=== PATIENT | female | born 1955 | race Caucasian/White ===

== ENCOUNTER 2017-07-11 11:33 | Inpatient (IN) | payer OTHER ==
[~2017-07-11] VITALS: Ht 165.1 cm; Wt 148.3 kg
[~2017-07-11 11:33] MED LIST: BENAZEPRIL-HCT1 EAC3 PO; COLACE100 M1 PO; ESCITALOPRAM OX20 MG PO; FEROSUL220 MG/5 M PO; FERROUS SU220 MG/51 PO; LACTULOSE20 GM/30 M PO; LIDOCAINE-PRILO30 GM TOP; LORAZEPAM0.5 M1 PO; MELATONIN3 M4 PO; MIRALAX17 G1 PO; NITRO-BID1 GM PR; NYSTOP60 GM EXT; OMEPRAZOLE40 M1 PO; PRILOSEC40 MG PO; PROPRANOLOL HCL10 M1 PO; RENVELA800 M1 PO; VITAMIN D250000 UNIT PO; XIFAXAN550 M1 PO
[2017-07-11 13:12] LABS: ABSOLUTE BASOPHIL COUNT 0 /CUMM (0.0-0.2); BASOPHIL % 0 % (0.0-2.0); MEAN PLATELET VOLUME 7.5 FL (7.4-10.4)
[2017-07-11 13:23] LABS: ABSOLUTE EOSINOPHIL COUNT 0.2 /CUMM (0.0-0.7); ABSOLUTE GRANULOCYTE CT 7.6 /CUMM (1.4-6.5); ABSOLUTE LYMPH COUNT 0.8 /CUMM (1.2-3.4); ABSOLUTE MONOCYTE COUNT 0.5 /CUMM (0.10-0.60); EOSINOPHIL % 2.6 % (0-5); GRANULOCYTE % 82.8 % (42.2-75.2); HEMATOCRIT 21.9 % (37-47); MEAN CORPUSCULAR HGB 29.9 PG (27.0-31.0); MEAN CORPUSCULAR HGB CONC 32.1 G/DL (33.0-37.0); PLATELET COUNT 201 /CUMM (130-400); RED BLOOD CELL CT 2.36 /CUMM (4.20-5.40); WHITE BLOOD CELL COUNT 9.2 /CUMM (4.8-10.8)
--- NOTE | 2017-07-11 14:02 | ED AMS/SEIZURE/WEAK/DIZZY ---
See Addendum History of Present Illness General Chief Complaint: General Adult Stated Complaint: GENERALIZED WEAKNESS, LETHARGY Source: patient, family, old records, EMS Exam Limitations: no limitations Vital Signs & Intake/Output Vital Signs & Intake/Output Vital Signs Date Time Temp Pulse Resp B/P B/P Pulse O2 O2 Flow FiO2 Mean Ox Delivery Rate 07/12 1251 97.6 49 18 97/49 95 Room Air / 1012 97.1 68 18 156/57 94 Room Air / 0815 95 Room Air / 0746 98.0 64 20 95/60 100 Room Air / 0616 97.7 53 20 93/50 95 Room Air / 0050 97.8 90 18 122/70 96 Room Air / 2221 98.0 62 20 109/60 98 Room Air 07/11 2007 98.1 51 18 99/54 98 Room Air / 1540 Room Air Room Air / 1537 97.5 75 18 96/51 97 Room Air ED Intake and Output 07/12 0000 07/11 1200 Intake Total 0 Output Total Balance 0 Intake, Oral 0 Patient 338 lb Weight Weight Reported by Patient Measurement Method Allergies Coded Allergies: Sulfa (Sulfonamide Antibiotics) (Intermediate, HIVES 02/25/17) latex (Intermediate, HIVES 02/25/17) Reconcile Medications Ergocalciferol (Vitamin D2) (Vitamin D2) 50,000 UNIT CAPSULE 1 CAP PO AD SUPPLEMENT (Reported) Escitalopram Oxalate 20 MG TABLET 1 TAB PO DAILY MENTAL HEALTH (Reported) Ferrous Sulfate 220 MG (44 MG IRON)/5 ML SOLUTION 300 ML PO TID ARIANNA . Lactulose 20 GRAM/30 ML SOLUTION 30 GM PO TID PRN constipation titrate for three bowel movements per day stop in case of diarrhea Lidocaine/Prilocaine (Lidocaine-Prilocaine Cream) 2.5 %-2.5 % CREAM..G. 1 WOODROW TOP 3-4XDAILY ANAL FISSURE (Reported) Melatonin 3 MG TABLET 3 MG PO AT BEDTIME insomnia Nitroglycerin (Nitro-Bid) 2 % OINT...G. 1 WOODROW WI 3-4XDAILY ANAL FISSURE ( Reported) Nystatin (Nystop) 100,000 UNIT/GRAM POWDER 1 POW EXT DAILY PRN Rash Omeprazole 40 MG CAPSULE.DR 1 CAP PO DAILY GI (Reported) Propranolol HCl 10 MG TABLET 1 HTAB PO BID Esophageal varices Avoid if heart rate is below 6 bpmin Rifaximin (Xifaxan) 550 MG TABLET 1 TAB PO BID ascitis Sevelamer Carbonate (Renvela) 800 MG TABLET 1 TAB PO WM Renal Triage Note: 61 YEAR OLD FEMALE REPORTS GENERALIZED WEAKNESS AND LETHARGY STARTING TUESDAY. PT STATES SHE WAS EVALUATED HERE ON TUESDAY AND DISCHARGED TO HOME. PT DENIES CP/SOB. REPORTS HISTORY OF DIABETES, KIDNEY DISEASE AND LIVER DISEASE. LOWER EXTREMETIES NOTED TO BE WRAPPED WITH GIAN WRAP. PT REPORTS SKIN IS INTACT BUT HAS WEEPING EDEMA TO BLE. Triage Nurses Notes Reviewed? yes Onset: several days Duration: day(s):, constant, continues in ED Timing: recent history Injury Environment: home Severity: severe Modifying Factors: Improves With: rest. Worsens With: movement. LMP (ages 10-50): post menopausal : No Patient currently breastfeeds: No HPI: 5 days prior to admission patient reports progressive weakness and unable to stand and pivot or walk with walker. She denies fever chills nausea vomiting diarrhea abdominal pain chest pain shortness breath headache dysuria rash bleeding. (Mart Meza MD) Past History Travel History Traveled to [place] past 21 day No Medical History Any Pertinent Medical History? 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 No (Mart Meza MD) Review of Systems Review of Systems Constitutional: Reports: see HPI, weakness. EENTM: Reports: no symptoms. Respiratory: Reports: no symptoms. Cardiovascular: Reports: no symptoms. GI: Reports: no symptoms. Genitourinary: Reports: no symptoms. Musculoskeletal: Reports: no symptoms. Skin: Reports: see HPI. Neurological/Psychological: Reports: see HPI, weakness. Hematologic/Endocrine: Reports: no symptoms. Immunologic/Allergic: Reports: no symptoms. All Other Systems: Reviewed and Negative (Mart Meza MD) Physical Exam Physical Exam General Appearance: well developed/nourished, alert, awake, moderate distress, obese Head: atraumatic, normal appearance Eyes: Bilateral: normal appearance, PERRL, EOMI. Ears, Nose, Throat: normal pharynx, normal ENT inspection Neck: normal inspection, supple, full range of motion, no midline tenderness Respiratory: normal breath sounds, chest non-tender, no respiratory distress, quiet respiration, lungs clear Cardiovascular: regular rate/rhythm, edema, normal peripheral pulses, norml femoral pulses equa Peripheral Pulses: 4+ carotid (R), 4+ carotid (L) Gastrointestinal: normal bowel sounds, soft, non-tender, no organomegaly Back: normal inspection Extremities: normal range of motion, pedal edema, no ligament instability Neurologic/Psych: awake, alert, oriented x 3, safety deposit supervisor II-XII nml as tested, motor weakness Reflexes: 2+: bicep (R), bicep (L). Skin: intact, normal color, warm/dry Lymphatic: no anterior cervical rishi Core Measures ACS in differential dx? No CVA/TIA Diagnosis No Sepsis Present: No Sepsis Focused Exam Completed? No (Mart Meza MD) Progress Differential Diagnosis: anemia, dehydration, drug intoxication, electrolyte imbalance, hypoxia, pneumonia Plan of Care: Orders Procedure Date/time Status Renal Dialysis Diet 07/12 B Active CASE MANAGEMENT CONSULT 07/12 0403 Active PT EVAL LOW COMPLEX 20 MIN 07/11 UNK Complete Current Medications Sig/Oleg Start time Last Medication Dose Stop Time Status Admin Melatonin 3 MG AT BEDTIME 07/12 2200 UNVr (Melatonin) Escitalopram Oxalate 20 MG DAILY 07/12 1000 UNVr 07/12 (Lexapro) 1019 Propranolol HCl 10 MG BID 07/12 1000 UNVr 07/12 (Inderal 10 MG 1019 Tablet.) Rifaximin 550 MG BID 07/12 1000 UNVr 07/12 (XIFAXAN) 1019 Omeprazole 40 MG DAILY AC 07/12 0700 UNVr (Prilosec) Acyclovir 1 WOODROW 5 TIMES A DAY 07/11 1857 AC 07/12 (Zovirax Oint) 0956 Non-Formulary 0 SEE ADMIN CRITERIA 07/11 1700 CAN Medication (NON FORMULARY) Iron Sucrose 200 MG ONE 07/11 0000 CAN (Venofer) 07/11 2359 Sodium Chloride 100 ML (Normal Saline 0.9%) Initial ED EKG: normal axis, normal intervals, normal p-waves, normal QRS complex, normal sinus rhythm, no ST T wave changes Prior EKG: unchanged Rhythm Strip: normal sinus rhythm Hand-Off Endorsed To: Narendra Chavez MD Endorsed Time: 190 Pending: other (Rehab placement) Comments: D/W renal: IV iron, epo now then f/u for IV iron as scheduled. Epo 10,000 units Qweek at rehab. (Mart Meza MD) Hand-Off Endorsed To: Phil Gutierrez MD Endorsed Time: 07 Pending: other (Narendra Chavez MD) Comments: BED SEARCH IS UNDERWAY. (Phil Gutierrez MD) Departure Departure Condition: Stable Clinical Impression Primary Impression: Weakness generalized Referrals: Lana Knight DO (PCP/Family) Departure Forms: Customer Survey General Discharge Information (Mart Meza MD) Departure Disposition: ACUTE REHAB FACILITY (Phil Gutierrez MD) Condition: Stable Clinical Impression Primary Impression: Weakness generalized Referrals: Lana Knight DO (PCP/Family) Departure Forms: Customer Survey General Discharge Information (Mart Meza MD) Departure Disposition: ACUTE REHAB FACILITY (Phil Gutierrez MD) Comments: BED SEARCH IS UNDERWAY. (Phil Gutierrez MD) Departure Departure Disposition: STILL A PATIENT Condition: Stable Clinical Impression Primary Impression: Weakness generalized Referrals: Lana Knight DO (PCP/Family) Departure Forms: Customer Survey General Discharge Information (Mart Meza MD)
--- NOTE | 2017-07-12 16:57 | History & Physical ---
Oniel GAMBINO,Phil 07/12/17 9520: General Information and HPI MD Statement: I have seen and personally examined ROHAN OVALLES and documented this H&P. The patient is a 61 year old F who presented with a patient stated chief complaint of [fatigue, weakness]. Source of Information: patient, family Exam Limitations: no limitations History of Present Illness: Patient is a 61-year-old female with a PMH significant for hepatorenal syndrome for which she was admitted to several months ago, postmenopausal bleeding, anemia, HTN, anxiety, depresison, fatty liver disease, questionable hypothyroid, hemmorrhoids, alcohol abuse (although has discontinued use since her last admission in March 2017), who presents to complaining of weakness, fatigue and chills. Since her discharge from in March she has been following with Dr. Mccallum and Dr. Saavedra. One week prior to admission she was given an IV iron and EPO infusion as an outpatient and since then has experienced fatigue, lethargy, and weakness. These sympoms did not resolve and 2 days prior to presentation she noted chills and presented to the ED. While in the ED her bloodwork was checked and she was discharged. Her symptoms did not improve and when her home nurse came to her house she called EMS due to the patient's weakness. She has had monthy vaginal bleeding for an extended period, which has been worked up by reel man, and has just finished one of these week long cycles of bleeding. She also endorsed diarrhea after receiving her iron and EPO injection last week. She denies any fever, SOB, chest pain, bloody stool, melena, dysuria , hematuria. Allergies/Medications Allergies: Coded Allergies: Sulfa (Sulfonamide Antibiotics) (Intermediate, HIVES 02/25/17) latex (Intermediate, HIVES 02/25/17) Home Med list Escitalopram Oxalate 10 MG TABLET 1 TAB PO DAILY DEPRESSION (Reported) Furosemide 20 MG TABLET 1 TAB PO BID WATER RETENTION (Reported) Lactulose 10 GRAM/15 ML SOLUTION 30 ML PO BID CONSTIPATION (Reported) Propranolol HCl 10 MG TABLET 1 HTAB PO BID Esophageal varices Avoid if heart rate is below 6 bpmin Rifaximin (Xifaxan) 550 MG TABLET 1 TAB PO BID ascitis Spironolactone 50 MG TABLET 1 TAB PO DAILY WATER RETENTION (Reported) Past History Travel History Traveled to [place] past 21 day No Medical History Neurological: NONE EENT: POST NASAL DRIP Cardiovascular: hypertension, L ATRIUM ENLARGED Respiratory: bronchitis, pneumonia Gastrointestinal: irritable bowel syndrome, ANAL FISSURE Hepatic: FATTY LIVER Renal: PHYLLIS Musculoskeletal: NONE Psychiatric: anxiety, depression Endocrine: obesity Blood Disorders: anemia Cancer(s): NONE 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 Home Who Do You Live With? spouse Services at Home: Nursing Primary Language: Russian Smoking Status: Never Smoked ETOH Use: previous heavy use quit < 30 days ago Illicit Drug Use: denies illicit drug use Functional Ability ADLs Independent: dressing, eating, toileting, bathing. Ambulation: independent IADLs Independent: shopping, housework, finances, food prep, telephone, transportation , medication admin. Review of Systems Review of Systems Constitutional: Reports: chills, weakness. Denies: diaphoresis, fever. EENTM: Reports: no symptoms. Cardiovascular: Denies: chest pain, palpitations. Respiratory: Reports: no symptoms. GI: Reports: no symptoms. Genitourinary: Reports: see HPI. Musculoskeletal: Reports: no symptoms. Skin: Reports: no symptoms. Neurological/Psychological: Reports: no symptoms. Post Menopausal: Yes Exam & Diagnostic Data Last 24 Hrs of Vital Signs/I&O Vital Signs Date Time Temp Pulse Resp B/P B/P Pulse O2 O2 Flow FiO2 Mean Ox Delivery Rate 07/12 1835 97.2 50 18 103/54 98 Room Air 03/ 1800 96 Room Air / 1531 97.8 48 18 104/54 96 Room Air 03/ 1251 97.6 49 18 97/49 95 Room Air 03/ 1012 97.1 68 18 156/57 94 Room Air 03/06 0815 95 Room Air 03/06 0746 98.0 64 20 95/60 100 Room Air 03/06 0616 97.7 53 20 93/50 95 Room Air 03/06 0050 97.8 90 18 122/70 96 Room Air 03/05 2221 98.0 62 20 109/60 98 Room Air 07/11 2006 98.1 51 18 99/54 98 Room Air Intake & Output 07/12 1600 07/12 0800 07/12 0000 Intake Total 100 240 Output Total 600 Balance 100 -360 Intake, Oral 100 240 Output, Urine 600 Physical Exam General Appearance Oriented X3, Cooperative, No Acute Distress, lethargic Skin Temp/Moisture Exam: Warm/Dry Cardiovascular Regular Rate, Normal S1, Normal S2 Lungs Clear to Auscultation, Normal Air Movement Abdomen Soft, No Tenderness, No Hepatospenomegaly, obese Neurological Normal Speech, Normal Tone, Sensation Intact, Cranial Nerves 3-12 NL Extremities 3+ pitting edema of the distal LEs bilaterally with weaping from some areas, which are currently wrapped in GIAN Last 24 Hrs of Labs/Srini: Laboratory Tests 07/12/171817: Anion Gap 10, Estimated GFR 16 L, BUN/Creatinine Ratio 24.3, Calcium Pending, Phosphorus Pending, Magnesium Pending, TSH Pending, CBC w Diff MAN DIFF ORDERED, RBC 2.49 L, MCV 91.8, MCH 29.8, MCHC 32.4 L, RDW 23.8 H, MPV 8.1, Gran % 81.2 H, Lymphocytes % 10.1 L, Monocytes % 5.4, Eosinophils % 3.2, Basophils % 0.1, Absolute Granulocytes 7.0 H, Segmented Neutrophils 79 H, Band Neutrophils 2, Absolute Lymphocytes 0.9 L, Lymphocytes 8 L, Monocytes 7, Absolute Monocytes 0.5, Eosinophils 4, Absolute Eosinophils 0.3, Absolute Basophils 0, Platelet Estimate ADEQUATE, Polychromasia 1+, Hypochromic-Microcytic 2+, Poikilocytosis 1 +, [place] Cells 1+, Fld Total RBCs Counted 100 Diagnostic Data EKG Results sinus bradycardia HR 50, QRS 112, QTc 442 Other Results Renal US L kidney normal, R kidney and bladder not seen Assessment/Plan Assessment: Patient is a 61-year-old female with a PMH significant for hepatorenal syndrome for which she was admitted to several months ago, postmenopausal bleeding, anemia, HTN, anxiety, depresison, fatty liver disease, questionable hypothyroid, hemmorrhoids, who presents to complaining of weakness, fatigue and chills. She was found to be anemic but not profoundly below her baseline in the ED, and she has hyponatremia and hyperkalemia. Renal US showed a normal L kidney but the R kidney and bladder were not visualized. Problem list #PHYLLIS possible due to hepatorenal syndrome #Normocitic Anemia, acute on chornic #Hyperkalemia #Hyponatremia Plan -admit to the general medicine floor - Consults placed with Nephrology and GI - kayexalate 60 mg x 1 and recheck BEP in AM - repeat EKG - Monitor CBC, patient received IV iron and EPO infusions while in ED - Hold Lasix and spironolactone given PHYLLIS - hold antihypertensives given boarderline BP and bradycardia - Gentle IV fluid rehydraion - Continue home medications including Lorazepam, Escitalopram, Rifaximin Diet: heart healthy, K+ restriction DVT ppx: ALPS, hold pharmacologic given anemia with vaginal bleeding Code status: Full Code As Ranked By This Provider Problem List: 1. Chronic anemia 2. Weakness 3. Chronic kidney disease 4. Hyponatremia 5. Hyperkalemia Core Measures/Misc (01/23) Acute Coronary Syndrome ACS Diagnosis: No Congestive Heart Failure Congestive Heart Failure Diagnosis No Cerebrovascular Accident CVA/TIA Diagnosis: No VTE (View Protocol) VTE Risk Factors No risk factors No Mechanical VTE Prophylaxis d/t N/A MechProphylax Ordered No VTE Pharm Prophylaxis d/t Bleeding (Active) Sepsis (View protocol) Sepsis Present: No Jaclyn Walter MD 07/12/17 1831: Resident Review Statement Resident Statement: examined this patient, discussed with international guest coordinator, agreed with international guest coordinator, discussed with family, reviewed images, amended to note Other Findings: Patient is a 61 year old female with a PMH significant for heavy alcohol use (1 bottle of wine per day), LIAO/cirrhosis, HTN, anxiety, depression, chronic anemia, hypothyroidism, hemorrhoids, and rectal fissures who presented to [facility] ED complaining of fatigue x 1 week after her 1st iron infusion and 2 days ago she reports beginning to feel cold with associated dry heaving. Her is at bedside and contributes to the hx. She came into the ER 2 days ago and had blood work done which showed her H&H was low but did not require transfusion and her creatinine was only sightly elevated fron baseline and she was discharged. She however came back yesterday due to persistent weakness and denies fevers, vomiting, syncope, chest pain or shortness of breath. She has 3+ pitting pedal edema with small weeping ulcers bilaterally. She was recently started on iron infusions [address] Mccallum and has had 2 doses since. Last tuesday was her most recent infusion. Infusions are scheduled for twice a week, and she also has EPO once a week. She had reports diarrhea after receiving the infusions. Patient has a hx of post-menopausal vaginal bleeding for some months now. She was seen by Dr. Arreola (OBGYN) and transvaginal ultrasound scans showed that her endometrium was 6mm and was told that 10mm is worisome, biopsy could not be done at the time due to positioning of her uterus . Bleeding is moderate to heavy with clots, lasts 7-8 days and according almost every month. She has been on xifaxan for sometime but recently had to switch to lactulose because of insurance issues. She disconitued ETOH since her diagnosis with cirrhosis last year. Renal ultrasound shows a normal left kidney, right kidney and bladder could not be visualized Assessment 1. PHYLLIS on CKD r/o Hepatorenal syndrome type 2 2. Hyperkalemia 3. Hyponatremia 4. Bradycardia 5. Chronic Anemia 6. Post Menopausal Bleeding 7. Hx of LIAO/cirrhosis 8. Hx of ETOH abuse and depression Plan Admit to general medicine floor Give a dose of kayexalate x 1; recheck potassium in a.m. Repeat EKG Hold furosemide and spironolactone for now due to PHYLLIS Daily labs, urine lytes Hold off on blood transfusions for now; patient has recently recieved iron infusions and Epopoietin. Will monitor CBC and defer to nephrology Nephrology consult-follow recommendations GI consult-will follow recs Consider OBGYN eval-pt will likely need a biospy to r/o malignancy and possible workup for ZURI when more stable CIWA scoring Wound care Repeat TSH, T4-hx of elvated TSH could be due to chronic illness Resume patient's important home medications including propranolol Follow attending recommendations Pain control with tylenol DVT ppx-ALPS Renal dialysis diet FC Andrés Jay MD 07/12/172051: Attending MD Review Statement Attending Statement Attending MD Statement: examined this patient, discuss w/resident/PA/HOME WEATHERIZING WORKER, agreed w/resident/PA/HOME WEATHERIZING WORKER, reviewed EMR data (avail) Attending Assessment/Plan: Agree with resident plan. Will admit for likely hepatorenal syndrome, follow nephrology recommendations as well as GI, hold Lasix for now, renal ultrasound, urine electrolyte, continue home meds, DVT PPx
--- NOTE | 2017-07-12 18:20 | ULTRASOUND REPORT ---
EXAMINATION: US RETROPERITONEAL COMPLETE (RENAL) CLINICAL INFORMATION: PHYLLIS. COMPARISON: Ultrasound of abdomen 05/25/2017 TECHNIQUE: Real-time imaging of the kidneys and bladder. Exam was performed portable. Patient was unable to decubitus. The exam is limited by body habitus and bowel gas. FINDINGS: RIGHT KIDNEY: Not clearly visualized. LEFT KIDNEY: 12 x 5.4 x 5.2 cm (SAG x AP x TRV). The kidney is normal in size, contour, and echogenicity. Renal cortical thickness is normal. No calculi or focal parenchymal lesions. No hydronephrosis. BLADDER: Unable to visualize. IMPRESSION: 1. Limited study. Unable to visualize the right kidney or the bladder. 2. Normal ultrasound of the left kidney..
[2017-07-12 18:44] LABS: ABSOLUTE BASOPHIL COUNT 0 /CUMM (0.0-0.2); ABSOLUTE EOSINOPHIL COUNT 0.3 /CUMM (0.0-0.7); ABSOLUTE LYMPH COUNT 0.9 /CUMM (1.2-3.4); ABSOLUTE MONOCYTE COUNT 0.5 /CUMM (0.10-0.60); BASOPHIL % 0.1 % (0.0-2.0); EOSINOPHIL % 3.2 % (0-5); GRANULOCYTE % 81.2 % (42.2-75.2); HEMATOCRIT 22.8 % (37-47); MEAN CORPUSCULAR HGB 29.8 PG (27.0-31.0); MEAN CORPUSCULAR HGB CONC 32.4 G/DL (33.0-37.0); MEAN CORPUSCULAR VOLUME 91.8 FL (81.0-99.0); MEAN PLATELET VOLUME 8.1 FL (7.4-10.4); PLATELET COUNT 201 /CUMM (130-400); RBC DISTRIBUTION WIDTH 23.8 % (11.5-14.5); RED BLOOD CELL CT 2.49 /CUMM (4.20-5.40); WHITE BLOOD CELL COUNT 8.7 /CUMM (4.8-10.8)
[2017-07-12] MEDS ORDERED: SPIRONOLACTONE50 M1 PO (19:29)
[2017-07-12] MEDS ORDERED: ESCITALOPRAM OX10 MG PO (19:29)
[2017-07-12] MEDS ORDERED: FUROSEMIDE20 M1 PO (19:29)
[2017-07-12] MEDS ORDERED: LACTULOSE10 GM/153 PO (19:30)
[2017-07-13 06:46] VITALS: BP 107/60
--- NOTE | 2017-07-13 07:24 | PN- Housestaff ---
Oniel GAMBINO,Phil 07/13/17 0723: Subjective Follow-up For: Acute on chronic anemia PHYLLIS on CKD, possibly hepatorenal syndrome Subjective: Patient was seen and examined at bedside. She is resting comfortably. She had no acute events overnight. She feels better overall than she did yesterday in the ER. She has been able to transition from bed to chair without issue. She continues to complain of fatigue but this has improved. She has no other complaints at this time. She denies any abdominal pain, nausea, vomiting, fever , chills, chest pain, shortness of breath. Review of Systems Constitutional: Denies: chills, fever, malaise. Cardiovascular: Denies: chest pain, palpitations. Respiratory: Denies: cough, short of breath. Gastrointestinal: Reports: no symptoms. Genitourinary: Reports: no symptoms. Musculoskeletal: Reports: no symptoms. Objective Last 24 Hrs of Vital Signs/I&O Vital Signs Date Time Temp Pulse Resp B/P B/P Pulse O2 O2 Flow FiO2 Mean Ox Delivery Rate 07/13 0646 97.8 57 16 107/60 95 Room Air 03/ 2047 97.5 50 18 100 Room Air 03/ 1835 97.2 50 18 103/54 98 Room Air 03/06 1800 96 Room Air 03/ 1531 97.8 48 18 104/54 96 Room Air 03/ 1251 97.6 49 18 97/49 95 Room Air 03/06 1012 97.1 68 18 156/57 94 Room Air 03/ 0815 95 Room Air 03/06 0746 98.0 64 20 95/60 100 Room Air Intake & Output 07/13 0800 07/13 0000 07/12 1600 Intake Total 225 100 Output Total 100 Balance 125 100 Intake, IV 225 Intake, Oral 100 Output, Urine 100 Patient 325 lb Weight Weight Bed scale Measurement Method Physical Exam General Appearance: Alert, Oriented X3, Cooperative, No Acute Distress Skin Temp/Moisture Exam: Warm/Dry Sepsis Skin Exam (color): Normal for Ethnicity Cardiovascular: Regular Rate, Normal S1, Normal S2 Lungs: diminshed breath sounds Abdomen: Normal Bowel Sounds, Soft, No Tenderness Neurological: Normal Tone, Sensation Intact Extremities: 3+ pitting edema of the distal BLE with areas of weeping Current Medications: Current Medications Sig/Oleg Start time Last Medication Dose Route Stop Time Status Admin Acetaminophen 650 MG Q6P PRN 07/12 1730 AC PO Acyclovir 1 WOODROW 5 TIMES A DAY 07/11 1857 AC 07/13 TOP 0632 Escitalopram Oxalate 20 MG DAILY 07/12 1000 AC 07/12 PO 1019 Lorazepam 0.5 MG AT BEDTIME 07/12 2199 AC 07/12 PO 07/19 2158 210 Melatonin 3 MG AT BEDTIME 07/12 220 AC 07/12 PO 2105 Omeprazole 40 MG DAILY AC 07/12 0700 AC 07/13 PO 0632 Propranolol HCl 10 MG BID 07/12 2200 CAN PO Propranolol HCl 10 MG BID 07/12 1000 DC 07/12 PO 1019 Rifaximin 550 MG BID 07/12 2199 AC 07/12 PO 2105 Rifaximin 550 MG BID 07/12 1000 DC 07/12 PO 1019 Sodium Chloride 1,000 ML Q13H 07/12 181 DC 07/12 IV 07/13 Sodium Polystyrene 60 ML ONCE ONE 07/12 1914 DC 07/12 Sulfonate PO 07/12 Last 24 Hrs of Lab/Srini Results Last 24 Hrs of Labs/Mics: Laboratory Tests 07/13/17 0608: Sodium Pending, Potassium Pending, Chloride Pending, Carbon Dioxide Pending, Anion Gap Pending, BUN Pending, Creatinine Pending, BUN/Creatinine Ratio Pending , Phosphorus Pending, Magnesium Pending, CBC w Diff Pending, WBC Pending, RBC Pending, Hgb Pending, Hct Pending, MCV Pending, MCH Pending, MCHC Pending, RDW Pending, Plt Count Pending, MPV Pending 07/12/178: Anion Gap 10, Estimated GFR 16 L, BUN/Creatinine Ratio 24.3, Calcium 9.3, Phosphorus 4.2, Magnesium 2.7 H, TSH 6.470 H, Thyroxine (T4) 5.0, CBC w Diff MAN DIFF ORDERED, RBC 2.49 L, MCV 91.8, MCH 29.8, MCHC 32.4 L, RDW 23.8 H, MPV 8.1, Gran % 81.2 H, Lymphocytes % 10.1 L, Monocytes % 5.4, Eosinophils % 3.2, Basophils % 0.1, Absolute Granulocytes 7.0 H, Segmented Neutrophils 79 H, Band Neutrophils 2, Absolute Lymphocytes 0.9 L, Lymphocytes 8 L, Monocytes 7, Absolute Monocytes 0.5, Eosinophils 4, Absolute Eosinophils 0.3, Absolute Basophils 0, Platelet Estimate ADEQUATE, Polychromasia 1+, Hypochromic- Microcytic 2+, Poikilocytosis 1+, Spindale Cells 1+, Fld Total RBCs Counted 100 Assessment/Plan Assessment: Patient is a 61-year-old female with a PMH significant for hepatorenal syndrome for which she was admitted to several months ago, postmenopausal bleeding, anemia, HTN, anxiety, depresison, fatty liver disease, questionable hypothyroid, hemmorrhoids, who presents to complaining of weakness, fatigue and chills. She was found to be anemic but not profoundly below her baseline in the ED, and she has hyponatremia and hyperkalemia. Renal US showed a normal L kidney but the R kidney and bladder were not visualized. #PHYLLIS on CKD This could possibly, possible due to hepatorenal syndrome - Continue IV albumin 25% q 8 Hrs -We'll pursue abdominal ultrasound to evaluate for ascites -Follow-up BEP and C3,C4 in AM - Continue to hold diuretics and avoid nephrotoxic medications -Follow-up INR for MELD scoring -GI and nephro recommendations appreciated #Normocitic Anemia, acute on chornic Patient has a history of postmenopausal vaginal bleeding, she has followed with Dr. Muniz as an outpatient -Epogen 1200 units weekly, last dose on 07/11/16 -Continue every other day dosing of IV venofer to goal dose of 1 g (received 200 mg today, total dose 400 mg) -Continue to monitor BEP #Hyperkalemia, resolved -Continue to monitor BEP #Hyponatremia, improving -Continue to monitor BEP Diet: heart healthy, K+ restriction DVT ppx: ALPS, hold pharmacologic given anemia with vaginal bleeding Code status: Full Code Problem List: 1. Chronic anemia 2. Acute kidney injury superimposed on chronic kidney disease Pain Ratin Pain Location: none Pain Goal: Remain pain free Pain Plan: pain pathway Tomorrow's Labs & Rationales: cbc, bep, C3, C4 Marlon Hendrix MD 07/13/17 1741: Attending Review Statement Attending Statement Attending Statement: examined this patient, discuss w/resident/PA/FINANCIAL ASSISTANT, agreed w/resident/PA/FINANCIAL ASSISTANT, reviewed EMR data (avail), discussed with case mgmt, amended to note Attending Assessment/Plan: The patient was seen and discussed with house staff. Appreciate Nephrology and GI consults. Will follow renal function. IV albumin. Follow H/H. May need transfusion.
--- NOTE | 2017-07-13 07:40 | Cons- Gastroenterology ---
General Information and HPI Consulting Request Date of Consult: 07/13/17 Requested By: Andrés Jay MD Reason for Consult: Renal insufficiency in a pt with LIAO/cirrhosis. Source of Information: patient, old records Exam Limitations: no limitations History of Present Illness: Ms. Scales is a 61 year old female with a history of ARIANNA secondary to post menopausal bleeding for which she receives IV iron and epo, and LIAO/cirrhosis who presented to yesterday with reports of increasing fatigue associated with fevers and chills. She was admitted to in March for anemia at which point she underwent an endoscopic work up which revealed grade I varices and portal hypertensive gastropathy for which she has been started on a non-selective beta miguel. She also takes xifaxan and diuretics for lower extremity swellling, but she notes that they weren't able to fill the xifaxan recently secondary to cost and she was subsequently started on lactulose. She has been having some vaginal bleeding which she notes she gets intermittently and she also notes some loose stool, but she has not noted any blood in her stool, or melena. She is also without overt abdominal pain, significant abdominal distention, lower extremity swelling or vomiting. In the ER she was found to be anemic, but not far from her baseline and she was also noted to have worsening renal insufficiency with hyperkalemia. She got kaexelate, IV iron and epo in the ED and was subsequenty admitted. Her diuretics were held on admission and she has remained hemodynamically stable and afebrile. Allergies/Medications Allergies: Coded Allergies: Sulfa (Sulfonamide Antibiotics) (Intermediate, HIVES 02/25/17) latex (Intermediate, HIVES 02/25/17) Home Med List: Escitalopram Oxalate 10 MG TABLET 1 TAB PO DAILY DEPRESSION (Reported) Furosemide 20 MG TABLET 1 TAB PO BID WATER RETENTION (Reported) Lactulose 10 GRAM/15 ML SOLUTION 30 ML PO BID CONSTIPATION (Reported) Propranolol HCl 10 MG TABLET 1 HTAB PO BID Esophageal varices Avoid if heart rate is below 6 bpmin Rifaximin (Xifaxan) 550 MG TABLET 1 TAB PO BID ascitis Spironolactone 50 MG TABLET 1 TAB PO DAILY WATER RETENTION (Reported) Current Medications: Current Medications Sig/Oleg Start time Last Medication Dose Route Stop Time Status Admin Acetaminophen 650 MG Q6P PRN 03/06 1730 AC PO Acyclovir 1 WOODROW 5 TIMES A DAY 07/11 1857 AC 07/13 TOP 0632 Escitalopram Oxalate 20 MG DAILY 07/12 1000 AC 07/12 PO 1019 Lorazepam 0.5 MG AT BEDTIME 07/12 2199 AC 07/12 PO 07/19 2158 210 Melatonin 3 MG AT BEDTIME 07/12 220 AC 07/12 PO 2105 Omeprazole 40 MG DAILY AC 07/12 0700 AC 07/13 PO 0632 Propranolol HCl 10 MG BID 07/12 2200 CAN PO Propranolol HCl 10 MG BID 07/12 1000 DC 07/12 PO 1019 Rifaximin 550 MG BID 07/12 220 AC 07/12 PO 2105 Rifaximin 550 MG BID 07/12 1000 DC 07/12 PO 1019 Sodium Chloride 1,000 ML Q13H 07/12 1815 DC 07/12 IV 07/13 Sodium Polystyrene 60 ML ONCE ONE 07/12 1914 DC 07/12 Sulfonate PO 07/12 Past History Travel History Traveled to [place] past 21 day No Medical History Neurological: NONE EENT: POST NASAL DRIP Cardiovascular: hypertension, L ATRIUM ENLARGED Respiratory: bronchitis, pneumonia Gastrointestinal: irritable bowel syndrome, ANAL FISSURE Hepatic: FATTY LIVER Renal: PHYLLIS Musculoskeletal: NONE Psychiatric: anxiety, depression Endocrine: obesity Blood Disorders: anemia Cancer(s): NONE 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 Home Who Do You Live With? spouse Services at Home: Nursing Primary Language: Turkish Smoking Status: Never Smoked ETOH Use: previous heavy use quit < 30 days ago Illicit Drug Use: denies illicit drug use Functional Ability ADLs Independent: dressing, eating, toileting, bathing. Ambulation: independent IADLs Independent: shopping, housework, finances, food prep, telephone, transportation , medication admin. Review of Systems Review of Systems Constitutional: Reports: chills, malaise, weakness. Denies: diaphoresis, fever. EENTM: Denies: no symptoms. Cardiovascular: Reports: edema, peripheral edema. Denies: orthopena, palpitations, syncope. Respiratory: Reports: short of breath. Denies: cough, hemoptysis, orthopnea. GI: Denies: see HPI. Genitourinary: Denies: no symptoms. Musculoskeletal: Reports: muscle pain, muscle stiffness. Denies: joint pain, joint swelling. Skin: Denies: no symptoms. Neurological/Psychological: Denies: no symptoms. Hematologic/Endocrine: Denies: no symptoms. Immunologic/Allergic: Denies: no symptoms. All Other Systems: Reviewed and Negative Exam & Diagnostic Data Vital Signs and I&O Vital Signs Date Time Temp Pulse Resp B/P B/P Pulse O2 O2 Flow FiO2 Mean Ox Delivery Rate 07/13 0646 97.8 57 16 107/60 95 Room Air / 2047 97.5 50 18 100 Room Air / 1835 97.2 50 18 103/54 98 Room Air / 1800 96 Room Air / 1531 97.8 48 18 104/54 96 Room Air / 1251 97.6 49 18 97/49 95 Room Air / 1012 97.1 68 18 156/57 94 Room Air / 0815 95 Room Air /06 0746 98.0 64 20 95/60 100 Room Air Intake & Output 07/13 1600 /07 0400 /06 1600 /06 0400 /05 1600 03/05 0400 Intake Total 225 100 240 0 Output Total 100 600 Balance 125 100 -360 0 Intake, IV 225 Intake, Oral 100 240 0 Output, Urine 100 600 Patient 325 lb 338 lb Weight Weight Bed scale Reported by Patient Measurement Method Physical Exam General Appearance: well developed/nourished, no apparent distress, alert, awake , comfortable, obese Head: atraumatic, normal appearance Eyes: Bilateral: other (scleral icterus). Ears, Nose, Throat: normal pharynx, normal ENT inspection, hearing grossly normal Neck: normal inspection, supple, full range of motion Respiratory: normal breath sounds, chest non-tender, no respiratory distress Cardiovascular: regular rate/rhythm Gastrointestinal: normal bowel sounds, soft, non-tender, no organomegaly Rectal: deferred Back: normal inspection Extremities: pedal edema Neurologic/Psych: no motor/sensory deficits, awake, alert, oriented x 3 Skin: intact Results Pertinent Lab Results: Laboratory Tests 07/13 07/12 0608 1818 Chemistry Sodium (137 - 145 mmol/L) Pending 130 L Potassium (3.5 - 5.1 mmol/L) Pending 5.9 H Chloride (98 - 107 mmol/L) Pending 100 Carbon Dioxide (22 - 30 mmol/L) Pending 20 L Anion Gap (5 - 16) Pending 10 BUN (7 - 17 mg/dL) Pending 73 H Creatinine (0.5 - 1.0 mg/dL) Pending 3.0 H Estimated GFR (>60 ml/min) 16 L BUN/Creatinine Ratio (7 - 25 %) Pending 24.3 Calcium (8.4 - 10.2 mg/dL) 9.3 Phosphorus (2.5 - 4.5 mg/dL) Pending 4.2 Magnesium (1.6 - 2.3 mg/dL) Pending 2.7 H TSH (0.270 - 4.200 uIU/mL) 6.470 H Thyroxine (T4) (4.5 - 10.9 ug/dL) 5.0 Hematology CBC w Diff Pending MAN DIFF ORDERED WBC (4.8 - 10.8 /CUMM) Pending 8.7 RBC (4.20 - 5.40 /CUMM) Pending 2.49 L Hgb (12.0 - 16.0 G/DL) Pending 7.4 *L Hct (37 - 47 %) Pending 22.8 L MCV (81.0 - 99.0 FL) Pending 91.8 MCH (27.0 - 31.0 PG) Pending 29.8 MCHC (33.0 - 37.0 G/DL) Pending 32.4 L RDW (11.5 - 14.5 %) Pending 23.8 H Plt Count (130 - 400 /CUMM) Pending 201 MPV (7.4 - 10.4 FL) Pending 8.1 Gran % (42.2 - 75.2 %) 81.2 H Lymphocytes % (20.5 - 51.1 %) 10.1 L Monocytes % (1.7 - 9.3 %) 5.4 Eosinophils % (0 - 5 %) 3.2 Basophils % (0.0 - 2.0 %) 0.1 Absolute Granulocytes (1.4 - 6.5 /CUMM) 7.0 H Segmented Neutrophils (42.2 - 75.2 %) 79 H Band Neutrophils (0.0 - 5.0 %) 2 Absolute Lymphocytes (1.2 - 3.4 /CUMM) 0.9 L Lymphocytes (20.5 - 51.1 %) 8 L Monocytes (1.7 - 9.3 %) 7 Absolute Monocytes (0.10 - 0.60 /CUMM) 0.5 Eosinophils (0 - 5.0 %) 4 Absolute Eosinophils (0.0 - 0.7 /CUMM) 0.3 Absolute Basophils (0.0 - 0.2 /CUMM) 0 Platelet Estimate (ADEQUATE) ADEQUATE Polychromasia 1+ Hypochromic-Microcytic 2+ Poikilocytosis 1+ Larue Cells 1+ Other Body Source Fld Total RBCs Counted (%) 100 07/11 07/11 1328 1328 Urines Urine Color (YEL,AMB,STR) YEL Urine Clarity (CLEAR) HAZY H Urine pH (5.0 - 8.0) 6.0 Ur Specific [place] (1.001 - 1.035) 1.020 Urine Protein (NEG,<30 MG/DL) 30 H Urine Ketones (NEG) NEG Urine Nitrite (NEG) NEG Urine Bilirubin (NEG) NEG Urine Urobilinogen (0.1 - 1.0 EU/dl) 0.2 Ur Leukocyte Esterase (NEG) NEG Ur Microscopic SEDIMENT EXAMINED Urine RBC (0 - 5 /HPF) 10-15 H Urine WBC (0 - 2 /HPF) 1-3 H Ur Epithelial Cells (NONE,FEW) MOD H Urine Bacteria (NEG/NONE) MANY H Hyaline Casts (0/LPF) RARE H Urine Mucus (FEW,NONE) RARE Urine Hemoglobin (NEG) LARGE H Ur Random Creatinine (mg/dL) 128.4 Ur Random Sodium (30 - 90 mmol/L) < 5 L Ur Random Potassium (mmol/L) 25.9 Fraction Sodium Excret (<1% %) Urine Glucose (N MG/DL) NEG 07/11 1244 Chemistry Sodium (137 - 145 mmol/L) 132 L Potassium (3.5 - 5.1 mmol/L) 4.6 Chloride (98 - 107 mmol/L) 100 Carbon Dioxide (22 - 30 mmol/L) 21 L Anion Gap (5 - 16) 11 BUN (7 - 17 mg/dL) 73 H Creatinine (0.5 - 1.0 mg/dL) 3.5 H Estimated GFR (>60 ml/min) 13 L BUN/Creatinine Ratio (7 - 25 %) 20.9 Glucose (65 - 99 mg/dL) 123 H Calcium (8.4 - 10.2 mg/dL) 9.8 Magnesium (1.6 - 2.3 mg/dL) 2.6 H Total Bilirubin (0.2 - 1.3 mg/dL) 5.2 H AST (14 - 36 U/L) 21 ALT (9 - 52 U/L) 17 Alkaline Phosphatase (<127 U/L) 54 Troponin I (< 0.11 ng/ml) < 0.01 Total Protein (6.3 - 8.2 g/dL) 6.3 Albumin (3.5 - 5.0 g/dL) 2.9 L Globulin (1.9 - 4.2 gm/dL) 3.4 Albumin/Globulin Ratio (1.1 - 2.2 %) 0.9 L Hematology CBC w Diff NO MAN DIFF REQ WBC (4.8 - 10.8 /CUMM) 9.2 RBC (4.20 - 5.40 /CUMM) 2.36 L Hgb (12.0 - 16.0 G/DL) 7.0 *L Hct (37 - 47 %) 21.9 L MCV (81.0 - 99.0 FL) 93.0 MCH (27.0 - 31.0 PG) 29.9 MCHC (33.0 - 37.0 G/DL) 32.1 L RDW (11.5 - 14.5 %) 23.0 H Plt Count (130 - 400 /CUMM) 201 MPV (7.4 - 10.4 FL) 7.5 Gran % (42.2 - 75.2 %) 82.8 H Lymphocytes % (20.5 - 51.1 %) 8.7 L Monocytes % (1.7 - 9.3 %) 5.9 Eosinophils % (0 - 5 %) 2.6 Basophils % (0.0 - 2.0 %) 0 Absolute Granulocytes (1.4 - 6.5 /CUMM) 7.6 H Absolute Lymphocytes (1.2 - 3.4 /CUMM) 0.8 L Absolute Monocytes (0.10 - 0.60 /CUMM) 0.5 Absolute Eosinophils (0.0 - 0.7 /CUMM) 0.2 Absolute Basophils (0.0 - 0.2 /CUMM) 0 Imaging/Other Studies: SERVICE DATE: 05/25/17 EXAM TYPE: US - US-ABD/PELV ORGAN DOPPLER EXAMINATION: Complete duplex ultrasound of the abdomen CLINICAL INDICATION: Liver enzymes abnormal. COMPARISON: Abdominal ultrasound 03/03/2017 TECHNIQUE: Real-time abdominal ultrasound performed. Duplex Doppler ultrasound and pulse wave Doppler with spectral analysis were also performed. FINDINGS: No evidence of ascites. The liver demonstrates diffusely increased echogenicity. Visualization of the liver is markedly limited. The Doppler evaluation is limited secondary to poor visualization of the intrahepatic vessels as well as the extrahepatic vessels due to overlying bowel gas and patient body habitus. The extrahepatic and main portal veins appear to have normal hepatopedal flow. Limited evaluation of the right portal vein suggests possible hepatofugal flow. The left portal vein is not visualized. The right hepatic vein and middle hepatic veins appear to be normal in appearance. The left hepatic vein is not visualized. The IVC is not visualized. The common hepatic artery and right hepatic artery have normal waveforms. The left hepatic artery is not visualized. The gallbladder appears grossly normal within the confines of the exam. The common bile duct measures 5 mm. Limited views of the kidneys show no evidence of hydronephrosis. The right kidney measures 11.9 cm in maximal diameter. The left kidney measures 11.7 cm. The spleen is enlarged measuring 14.1 cm. The pancreas is not well visualized due to overlying bowel gas. IMPRESSION: Limited exam secondary to patient body habitus and overlying bowel gas. 1. Diffusely increased hepatic echotexture suggests hepatic steatosis versus hepatocellular disease. 2. Limited hepatic Doppler shows normal hepatopedal flow in the extrahepatic and main portal vein although there is a suggestion of abnormal hepatofugal in the right portal vein. The left portal vein is not visualized. SERVICE DATE: 07/12/17 EXAM TYPE: US - US-RENAL/KIDNEY EXAMINATION: US RETROPERITONEAL COMPLETE (RENAL) CLINICAL INFORMATION: PHYLLIS. COMPARISON: Ultrasound of abdomen 05/25/2017 TECHNIQUE: Real-time imaging of the kidneys and bladder. Exam was performed portable. Patient was unable to decubitus. The exam is limited by body habitus and bowel gas. FINDINGS: RIGHT KIDNEY: Not clearly visualized. LEFT KIDNEY: 12 x 5.4 x 5.2 cm (SAG x AP x TRV). The kidney is normal in size, contour, and echogenicity. Renal cortical thickness is normal. No calculi or focal parenchymal lesions. No hydronephrosis. BLADDER: Unable to visualize. IMPRESSION: 1. Limited study. Unable to visualize the right kidney or the bladder. 2. Normal ultrasound of the left kidney.. Assessment/Plan Assessment/Recommendations: Assessment: Ms. 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 While hepatorenal syndrome is possible as she does have evidnce of portal hypertension based on her EGD done late last year I feel this is less likely. Her fatigue is likely multifactorial, but primarily related to her anemia. Her anemia is also likely multifactorial and primarily related to vaginal blood loss, but occult losses from portal hypertensive gastropathy is possibly contributing as well. It is also possible that some of her fatigue can be from the beta miguel she is on for variceal bleeding prophylaxis. Of note, she has been sober for several months now and an US done in May didn't show obvious cirrhosis so it is possible that some of her liver disease may improve with continued sobriety. If her liver disease does progress though it would not be unreasonable to refer her for a liver translpant evaluation once her MELD reaches 15 provided she maintains her sobriety. Recommendations: 1. Continue to hold diuretics. 2. Trial of albumin 25 gm IV q8hr x 24-48 hours 3. Continue xifaxan and hold lactulose for diarrhea. 4. Check spot urine lytes and follow up renal recommendations. 5. Check an INR to be able to calcluate her MELD score. 6. Gynecological consult for vaginal bleeding (? endometeral biopsy, consideration for a ZURI etc). 7. Follow daily CBC and transfuse as needed to maintain hgb > 8 or as per cardiology recommendations. 8. Continue propanolol at current dose, but would hold for hypotension or lightheadedness. 9. Follow lytes and renal function and treatment of hyperkalemia as per critical care team. I will continue to follow this patient and make further recommendations based on her clinical course and results of repeat blood work. Problem List: 1. Iron deficiency anemia 2. PHYLLIS (acute kidney injury) 3. Liver disease 4. Hepatorenal syndrome Copies To: Saad Knight DO, MD,David Doan; Keri GAMBINO,Dina Consult Acknowledgment - Thank you for your consult request.
[2017-07-13 08:16] LABS: ABSOLUTE BASOPHIL COUNT 0 /CUMM (0.0-0.2); ABSOLUTE EOSINOPHIL COUNT 0.3 /CUMM (0.0-0.7); ABSOLUTE GRANULOCYTE CT 6.1 /CUMM (1.4-6.5); ABSOLUTE MONOCYTE COUNT 0.7 /CUMM (0.10-0.60); BASOPHIL % 0.5 % (0.0-2.0); EOSINOPHIL % 3.9 % (0-5); GRANULOCYTE % 75.5 % (42.2-75.2); MEAN CORPUSCULAR HGB 30.7 PG (27.0-31.0); MEAN CORPUSCULAR VOLUME 93.2 FL (81.0-99.0); MEAN PLATELET VOLUME 7.4 FL (7.4-10.4); PLATELET COUNT 171 /CUMM (130-400); RBC DISTRIBUTION WIDTH 23.7 % (11.5-14.5); RED BLOOD CELL CT 2.31 /CUMM (4.20-5.40); WHITE BLOOD CELL COUNT 8.1 /CUMM (4.8-10.8)
[2017-07-13 08:47] LABS: HEMATOCRIT 21.5 % (37-47)
--- NOTE | 2017-07-13 12:57 | Cons- Nephrology ---
General Information and HPI Consulting Request Date of Consult: 07/13/17 Requested By: Andrés Jay MD Reason for Consult: IN ERROR Source of Information: patient Exam Limitations: no limitations History of Present Illness: IN ERROR Allergies/Medications Allergies: Coded Allergies: Sulfa (Sulfonamide Antibiotics) (Intermediate, HIVES 02/25/17) latex (Intermediate, HIVES 02/25/17) Home Med List: Escitalopram Oxalate 10 MG TABLET 1 TAB PO DAILY DEPRESSION (Reported) Furosemide 20 MG TABLET 1 TAB PO BID WATER RETENTION (Reported) Lactulose 10 GRAM/15 ML SOLUTION 30 ML PO BID CONSTIPATION (Reported) Propranolol HCl 10 MG TABLET 1 HTAB PO BID Esophageal varices Avoid if heart rate is below 6 bpmin Rifaximin (Xifaxan) 550 MG TABLET 1 TAB PO BID ascitis Spironolactone 50 MG TABLET 1 TAB PO DAILY WATER RETENTION (Reported) Review of Systems Review of Systems: IN ERROR Past History Travel History Traveled to [place] past 21 day No Medical History Neurological: NONE EENT: POST NASAL DRIP Cardiovascular: hypertension, L ATRIUM ENLARGED Respiratory: bronchitis, pneumonia Gastrointestinal: irritable bowel syndrome, ANAL FISSURE Hepatic: FATTY LIVER Renal: PHYLLIS Musculoskeletal: NONE Psychiatric: anxiety, depression Endocrine: obesity Blood Disorders: anemia Cancer(s): NONE 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 Home Who Do You Live With? spouse Services at Home: Nursing Primary Language: Vietnamese Smoking Status: Never Smoked ETOH Use: previous heavy use quit < 30 days ago Illicit Drug Use: denies illicit drug use Functional Ability ADLs Independent: dressing, eating, toileting, bathing. Ambulation: independent IADLs Independent: shopping, housework, finances, food prep, telephone, transportation , medication admin. Exam & Diagnostic Data Vital Signs and I&O Vital Signs Date Time Temp Pulse Resp B/P B/P Pulse O2 O2 Flow FiO2 Mean Ox Delivery Rate 07/13 1424 98.2 85 20 110/78 100 07/13 1151 52 104/50 07/13 0646 97.8 57 16 107/60 95 Room Air 07/12 2047 97.5 50 18 100 Room Air 07/12 1835 97.2 50 18 103/54 98 Room Air 07/12 1800 96 Room Air Intake & Output 07/13 04007/12 0400 07/11 0400 Intake Total 600 225 100 240 0 Output Total 200 100 600 Balance 400 125 100 -360 0 Intake, IV 600 225 Intake, Oral 100 240 0 Output, Urine 200 100 600 Patient 325 lb 325 lb 338 lb Weight Weight Bed scale Bed scale Reported by Patient Measurement Method Physical Exam: IN ERROR Results Pertinent Lab Results: Laboratory Tests 07/13 07/13 07/13 1125 0930 0608 Chemistry Sodium (137 - 145 mmol/L) 136 L Potassium (3.5 - 5.1 mmol/L) 4.3 Chloride (98 - 107 mmol/L) 102 Carbon Dioxide (22 - 30 mmol/L) 21 L Anion Gap (5 - 16) 12 BUN (7 - 17 mg/dL) 67 H Creatinine (0.5 - 1.0 mg/dL) 3.1 H Estimated GFR (>60 ml/min) 15 L BUN/Creatinine Ratio (7 - 25 %) 21.6 Phosphorus (2.5 - 4.5 mg/dL) 4.1 Magnesium (1.6 - 2.3 mg/dL) 2.7 H Coagulation PT (9.4 - 12.5 SEC) 16.3 H INR (0.90 - 1.19) 1.49 H Hematology CBC w Diff NO MAN DIFF REQ WBC (4.8 - 10.8 /CUMM) 8.1 RBC (4.20 - 5.40 /CUMM) 2.31 L Hgb (12.0 - 16.0 G/DL) 7.1 *L Hct (37 - 47 %) 21.5 L MCV (81.0 - 99.0 FL) 93.2 MCH (27.0 - 31.0 PG) 30.7 MCHC (33.0 - 37.0 G/DL) 33.0 RDW (11.5 - 14.5 %) 23.7 H Plt Count (130 - 400 /CUMM) 171 MPV (7.4 - 10.4 FL) 7.4 Gran % (42.2 - 75.2 %) 75.5 H Lymphocytes % (20.5 - 51.1 %) 11.9 L Monocytes % (1.7 - 9.3 %) 8.2 Eosinophils % (0 - 5 %) 3.9 Basophils % (0.0 - 2.0 %) 0.5 Absolute Granulocytes (1.4 - 6.5 /CUMM) 6.1 Absolute Lymphocytes (1.2 - 3.4 /CUMM) 1.0 L Absolute Monocytes (0.10 - 0.60 /CUMM) 0.7 H Absolute Eosinophils (0.0 - 0.7 /CUMM) 0.3 Absolute Basophils (0.0 - 0.2 /CUMM) 0 Urines Ur Random Creatinine (mg/dL) 69.0 Ur Random Sodium (30 - 90 mmol/L) 8 L Ur Random Potassium (mmol/L) 18.1 Fraction Sodium Excret (<1% %) 0.3 07/12 03 1818 1328 Chemistry Sodium (137 - 145 mmol/L) 130 L Potassium (3.5 - 5.1 mmol/L) 5.9 H Chloride (98 - 107 mmol/L) 100 Carbon Dioxide (22 - 30 mmol/L) 20 L Anion Gap (5 - 16) 10 BUN (7 - 17 mg/dL) 73 H Creatinine (0.5 - 1.0 mg/dL) 3.0 H Estimated GFR (>60 ml/min) 16 L BUN/Creatinine Ratio (7 - 25 %) 24.3 Calcium (8.4 - 10.2 mg/dL) 9.3 Phosphorus (2.5 - 4.5 mg/dL) 4.2 Magnesium (1.6 - 2.3 mg/dL) 2.7 H TSH (0.270 - 4.200 uIU/mL) 6.470 H Thyroxine (T4) (4.5 - 10.9 ug/dL) 5.0 Hematology CBC w Diff MAN DIFF ORDERED WBC (4.8 - 10.8 /CUMM) 8.7 RBC (4.20 - 5.40 /CUMM) 2.49 L Hgb (12.0 - 16.0 G/DL) 7.4 *L Hct (37 - 47 %) 22.8 L MCV (81.0 - 99.0 FL) 91.8 MCH (27.0 - 31.0 PG) 29.8 MCHC (33.0 - 37.0 G/DL) 32.4 L RDW (11.5 - 14.5 %) 23.8 H Plt Count (130 - 400 /CUMM) 201 MPV (7.4 - 10.4 FL) 8.1 Gran % (42.2 - 75.2 %) 81.2 H Lymphocytes % (20.5 - 51.1 %) 10.1 L Monocytes % (1.7 - 9.3 %) 5.4 Eosinophils % (0 - 5 %) 3.2 Basophils % (0.0 - 2.0 %) 0.1 Absolute Granulocytes (1.4 - 6.5 /CUMM) 7.0 H Segmented Neutrophils (42.2 - 75.2 %) 79 H Band Neutrophils (0.0 - 5.0 %) 2 Absolute Lymphocytes (1.2 - 3.4 /CUMM) 0.9 L Lymphocytes (20.5 - 51.1 %) 8 L Monocytes (1.7 - 9.3 %) 7 Absolute Monocytes (0.10 - 0.60 /CUMM) 0.5 Eosinophils (0 - 5.0 %) 4 Absolute Eosinophils (0.0 - 0.7 /CUMM) 0.3 Absolute Basophils (0.0 - 0.2 /CUMM) 0 Platelet Estimate (ADEQUATE) ADEQUATE Polychromasia 1+ Hypochromic-Microcytic 2+ Poikilocytosis 1+ [place] Cells 1+ Other Body Source Fld Total RBCs Counted (%) 100 Urines Urine Color (YEL,AMB,STR) YEL Urine Clarity (CLEAR) HAZY H Urine pH (5.0 - 8.0) 6.0 Ur Specific [place] (1.001 - 1.035) 1.020 Urine Protein (NEG,<30 MG/DL) 30 H Urine Ketones (NEG) NEG Urine Nitrite (NEG) NEG Urine Bilirubin (NEG) NEG Urine Urobilinogen (0.1 - 1.0 EU/dl) 0.2 Ur Leukocyte Esterase (NEG) NEG Ur Microscopic SEDIMENT EXAMINED Urine RBC (0 - 5 /HPF) 10-15 H Urine WBC (0 - 2 /HPF) 1-3 H Ur Epithelial Cells (NONE,FEW) MOD H Urine Bacteria (NEG/NONE) MANY H Hyaline Casts (0/LPF) RARE H Urine Mucus (FEW,NONE) RARE Urine Hemoglobin (NEG) LARGE H Urine Glucose (N MG/DL) NEG 07/11 07/11 1328 1244 Chemistry Sodium (137 - 145 mmol/L) 132 L Potassium (3.5 - 5.1 mmol/L) 4.6 Chloride (98 - 107 mmol/L) 100 Carbon Dioxide (22 - 30 mmol/L) 21 L Anion Gap (5 - 16) 11 BUN (7 - 17 mg/dL) 73 H Creatinine (0.5 - 1.0 mg/dL) 3.5 H Estimated GFR (>60 ml/min) 13 L BUN/Creatinine Ratio (7 - 25 %) 20.9 Glucose (65 - 99 mg/dL) 123 H Calcium (8.4 - 10.2 mg/dL) 9.8 Magnesium (1.6 - 2.3 mg/dL) 2.6 H Total Bilirubin (0.2 - 1.3 mg/dL) 5.2 H AST (14 - 36 U/L) 21 ALT (9 - 52 U/L) 17 Alkaline Phosphatase (<127 U/L) 54 Troponin I (< 0.11 ng/ml) < 0.01 Total Protein (6.3 - 8.2 g/dL) 6.3 Albumin (3.5 - 5.0 g/dL) 2.9 L Globulin (1.9 - 4.2 gm/dL) 3.4 Albumin/Globulin Ratio (1.1 - 2.2 %) 0.9 L Hematology CBC w Diff NO MAN DIFF REQ WBC (4.8 - 10.8 /CUMM) 9.2 RBC (4.20 - 5.40 /CUMM) 2.36 L Hgb (12.0 - 16.0 G/DL) 7.0 *L Hct (37 - 47 %) 21.9 L MCV (81.0 - 99.0 FL) 93.0 MCH (27.0 - 31.0 PG) 29.9 MCHC (33.0 - 37.0 G/DL) 32.1 L RDW (11.5 - 14.5 %) 23.0 H Plt Count (130 - 400 /CUMM) 201 MPV (7.4 - 10.4 FL) 7.5 Gran % (42.2 - 75.2 %) 82.8 H Lymphocytes % (20.5 - 51.1 %) 8.7 L Monocytes % (1.7 - 9.3 %) 5.9 Eosinophils % (0 - 5 %) 2.6 Basophils % (0.0 - 2.0 %) 0 Absolute Granulocytes (1.4 - 6.5 /CUMM) 7.6 H Absolute Lymphocytes (1.2 - 3.4 /CUMM) 0.8 L Absolute Monocytes (0.10 - 0.60 /CUMM) 0.5 Absolute Eosinophils (0.0 - 0.7 /CUMM) 0.2 Absolute Basophils (0.0 - 0.2 /CUMM) 0 Urines Ur Random Creatinine (mg/dL) 128.4 Ur Random Sodium (30 - 90 mmol/L) < 5 L Ur Random Potassium (mmol/L) 25.9 Fraction Sodium Excret (<1% %) Assessment/Plan Assessment/Recommendations Assessment: IN ERROR Recommendations: IN ERROR
[2017-07-13 13:00] LABS: PT 16.3 SEC (9.4-12.5)
--- NOTE | 2017-07-13 14:10 | Cons- Nephrology ---
General Information and HPI Consulting Request Date of Consult: 07/13/17 Requested By: Andrés Jay MD Reason for Consult: PHYLLIS on CKD Source of Information: patient, old records Exam Limitations: no limitations History of Present Illness: The patient is a 61-year-old woman with a past medical history most significant for stage IV chronic kidney disease with a baseline creatinine around 2 secondary to incompletely recovered acute kidney injury, cirrhosis thought to be secondary either to nonalcoholic or alcoholic steatohepatitis, and iron deficiency anemia who presents with weakness. In reviewing the records, the patient had followed up with Dr. Mccallum on 06/29. She is noted to be volume overloaded and he increased her diuretics to 40 mg twice a day in addition to his prolactin. Her creatinine prior to that was around 2. Patient is been in her usual state of health prior to the last week or so and she reports that she is felt to weak to walk. Repeat lab work notable for a creatinine of 3.3 on 06/28 (available for review at the visit). At the visit she was also noted to have iron deficiency anemia for which she was set up with Venofer 200 mg IV 5 doses twice weekly as well as 12,000 units of Neupogen every week. Patient last week reports that she's been especially weak. She has had poor by mouth intake. She continues on her diuretics. She so weak that she could hardly walk. She reports chills although no documented fever. No abdominal pain. Because of these symptoms she presented to the hospital. Presentation, her blood pressure is 110/48. Noted to be afebrile. Left notable for a creatinine of 3.5 which is down trended now to 3.1, T stanislaw 5.2 (had been 5.7). INR 1.49 with albumin 2.9. Hemoglobin 7.0 which had been 7-1/2 on prior check. She notes that she's having some vaginal bleeding. UA with 30mg/dl protein, 10-15 RBC, 1-3 WBC. Stephan <5 and then 8 on repeat. She has been treated with 10,000U Epogen, 200mg IV Venofer. She has also gotten 1L IV saline. Renal US performed - L kidney 12cm - unable to visualize the R kidney. No NSAID's at home. No known other nephrotoxic insults. No known recent contrast studies. Allergies/Medications Allergies: Coded Allergies: Sulfa (Sulfonamide Antibiotics) (Intermediate, HIVES 02/25/17) latex (Intermediate, HIVES 02/25/17) Home Med List: Escitalopram Oxalate 10 MG TABLET 1 TAB PO DAILY DEPRESSION (Reported) Furosemide 20 MG TABLET 1 TAB PO BID WATER RETENTION (Reported) Lactulose 10 GRAM/15 ML SOLUTION 30 ML PO BID CONSTIPATION (Reported) Propranolol HCl 10 MG TABLET 1 HTAB PO BID Esophageal varices Avoid if heart rate is below 6 bpmin Rifaximin (Xifaxan) 550 MG TABLET 1 TAB PO BID ascitis Spironolactone 50 MG TABLET 1 TAB PO DAILY WATER RETENTION (Reported) Current Medications: Current Medications Sig/Oleg Start time Last Medication Dose Route Stop Time Status Admin Acetaminophen 650 MG Q6P PRN 07/12 1730 AC PO Acyclovir 1 WOODROW 5 TIMES A DAY 07/11 1857 AC 07/13 TOP 0907 Albumin Human 25 GM Q8 07/13 1400 AC IV 07/15 1200 Escitalopram Oxalate 20 MG DAILY 07/12 1000 AC 07/13 PO 0906 Lorazepam 0.5 MG AT BEDTIME 07/12 2200 AC / PO 07/19 2159 2106 Melatonin 3 MG AT BEDTIME 07/12 2200 AC 07/12 PO 2105 Omeprazole 40 MG DAILY AC 07/12 0700 AC 07/13 PO 0632 Propranolol HCl 10 MG BID 07/13 1000 AC PO Propranolol HCl 10 MG BID 07/12 2200 CAN PO Propranolol HCl 10 MG BID 07/12 1000 DC / PO 1019 Rifaximin 550 MG BID 07/12 2200 AC 07/13 PO 0906 Rifaximin 550 MG BID 07/12 1000 DC 07/12 PO 1019 Sodium Chloride 1,000 ML Q13H 07/12 1815 DC / IV 07/13 0714 2021 Sodium Polystyrene 60 ML ONCE ONE 07/12 191 DC / Sulfonate PO 07/12 1912020 Review of Systems Review of Systems: Complete 14 point ROS neg except as per HPI. 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 Home Who Do You Live With? spouse Services at Home: Nursing Primary Language: Nepali Smoking Status: Never Smoked ETOH Use: previous heavy use quit < 30 days ago Illicit Drug Use: denies illicit drug use Functional Ability ADLs Independent: dressing, eating, toileting, bathing. Ambulation: independent IADLs Independent: shopping, housework, finances, food prep, telephone, transportation , medication admin. Exam & Diagnostic Data Vital Signs and I&O Vital Signs Date Time Temp Pulse Resp B/P B/P Pulse O2 O2 Flow FiO2 Mean Ox Delivery Rate 07/13 1151 52 104/50 07/13 0646 97.8 57 16 107/60 95 Room Air 07/12 2047 97.5 50 18 100 Room Air 07/12 1835 97.2 50 18 103/54 98 Room Air 07/12 1800 96 Room Air 07/12 1531 97.8 48 18 104/54 96 Room Air Intake & Output 07/13 1600 07/13 0400 07/12 1600 07/12 0400 07/11 1600 07/11 0400 Intake Total 600 225 100 240 0 Output Total 200 100 600 Balance 400 125 100 -360 0 Intake, IV 600 225 Intake, Oral 100 240 0 Output, Urine 200 100 600 Patient 325 lb 325 lb 338 lb Weight Weight Bed scale Bed scale Reported by Patient Measurement Method Physical Exam: Gen - OK appearing Head - NCAT Eyes - mildly icteric sclera, EOMI Neck - supple, JVP visible CV - RRR, no m/r/g Chest - clear anteriorly, no w/r/r Abd - soft, nontender, nondistended Upper ext - warm, no edema Lower ext - warm, +edema Skin - no rash or jaundice Neuro - AOX3, grossly nonfocal Results Pertinent Lab Results: Laboratory Tests 07/13 07/13 07/13 1125 0930 0608 Chemistry Sodium (137 - 145 mmol/L) 136 L Potassium (3.5 - 5.1 mmol/L) 4.3 Chloride (98 - 107 mmol/L) 102 Carbon Dioxide (22 - 30 mmol/L) 21 L Anion Gap (5 - 16) 12 BUN (7 - 17 mg/dL) 67 H Creatinine (0.5 - 1.0 mg/dL) 3.1 H Estimated GFR (>60 ml/min) 15 L BUN/Creatinine Ratio (7 - 25 %) 21.6 Phosphorus (2.5 - 4.5 mg/dL) 4.1 Magnesium (1.6 - 2.3 mg/dL) 2.7 H Coagulation PT (9.4 - 12.5 SEC) 16.3 H INR (0.90 - 1.19) 1.49 H Hematology CBC w Diff NO MAN DIFF REQ WBC (4.8 - 10.8 /CUMM) 8.1 RBC (4.20 - 5.40 /CUMM) 2.31 L Hgb (12.0 - 16.0 G/DL) 7.1 *L Hct (37 - 47 %) 21.5 L MCV (81.0 - 99.0 FL) 93.2 MCH (27.0 - 31.0 PG) 30.7 MCHC (33.0 - 37.0 G/DL) 33.0 RDW (11.5 - 14.5 %) 23.7 H Plt Count (130 - 400 /CUMM) 171 MPV (7.4 - 10.4 FL) 7.4 Gran % (42.2 - 75.2 %) 75.5 H Lymphocytes % (20.5 - 51.1 %) 11.9 L Monocytes % (1.7 - 9.3 %) 8.2 Eosinophils % (0 - 5 %) 3.9 Basophils % (0.0 - 2.0 %) 0.5 Absolute Granulocytes (1.4 - 6.5 /CUMM) 6.1 Absolute Lymphocytes (1.2 - 3.4 /CUMM) 1.0 L Absolute Monocytes (0.10 - 0.60 /CUMM) 0.7 H Absolute Eosinophils (0.0 - 0.7 /CUMM) 0.3 Absolute Basophils (0.0 - 0.2 /CUMM) 0 Urines Ur Random Creatinine (mg/dL) 69.0 Ur Random Sodium (30 - 90 mmol/L) 8 L Ur Random Potassium (mmol/L) 18.1 Fraction Sodium Excret (<1% %) 0.3 03/06 03/ 1818 1328 Chemistry Sodium (137 - 145 mmol/L) 130 L Potassium (3.5 - 5.1 mmol/L) 5.9 H Chloride (98 - 107 mmol/L) 100 Carbon Dioxide (22 - 30 mmol/L) 20 L Anion Gap (5 - 16) 10 BUN (7 - 17 mg/dL) 73 H Creatinine (0.5 - 1.0 mg/dL) 3.0 H Estimated GFR (>60 ml/min) 16 L BUN/Creatinine Ratio (7 - 25 %) 24.3 Calcium (8.4 - 10.2 mg/dL) 9.3 Phosphorus (2.5 - 4.5 mg/dL) 4.2 Magnesium (1.6 - 2.3 mg/dL) 2.7 H TSH (0.270 - 4.200 uIU/mL) 6.470 H Thyroxine (T4) (4.5 - 10.9 ug/dL) 5.0 Hematology CBC w Diff MAN DIFF ORDERED WBC (4.8 - 10.8 /CUMM) 8.7 RBC (4.20 - 5.40 /CUMM) 2.49 L Hgb (12.0 - 16.0 G/DL) 7.4 *L Hct (37 - 47 %) 22.8 L MCV (81.0 - 99.0 FL) 91.8 MCH (27.0 - 31.0 PG) 29.8 MCHC (33.0 - 37.0 G/DL) 32.4 L RDW (11.5 - 14.5 %) 23.8 H Plt Count (130 - 400 /CUMM) 201 MPV (7.4 - 10.4 FL) 8.1 Gran % (42.2 - 75.2 %) 81.2 H Lymphocytes % (20.5 - 51.1 %) 10.1 L Monocytes % (1.7 - 9.3 %) 5.4 Eosinophils % (0 - 5 %) 3.2 Basophils % (0.0 - 2.0 %) 0.1 Absolute Granulocytes (1.4 - 6.5 /CUMM) 7.0 H Segmented Neutrophils (42.2 - 75.2 %) 79 H Band Neutrophils (0.0 - 5.0 %) 2 Absolute Lymphocytes (1.2 - 3.4 /CUMM) 0.9 L Lymphocytes (20.5 - 51.1 %) 8 L Monocytes (1.7 - 9.3 %) 7 Absolute Monocytes (0.10 - 0.60 /CUMM) 0.5 Eosinophils (0 - 5.0 %) 4 Absolute Eosinophils (0.0 - 0.7 /CUMM) 0.3 Absolute Basophils (0.0 - 0.2 /CUMM) 0 Platelet Estimate (ADEQUATE) ADEQUATE Polychromasia 1+ Hypochromic-Microcytic 2+ Poikilocytosis 1+ [place] Cells 1+ Other Body Source Fld Total RBCs Counted (%) 100 Urines Urine Color (YEL,AMB,STR) YEL Urine Clarity (CLEAR) HAZY H Urine pH (5.0 - 8.0) 6.0 Ur Specific [place] (1.001 - 1.035) 1.020 Urine Protein (NEG,<30 MG/DL) 30 H Urine Ketones (NEG) NEG Urine Nitrite (NEG) NEG Urine Bilirubin (NEG) NEG Urine Urobilinogen (0.1 - 1.0 EU/dl) 0.2 Ur Leukocyte Esterase (NEG) NEG Ur Microscopic SEDIMENT EXAMINED Urine RBC (0 - 5 /HPF) 10-15 H Urine WBC (0 - 2 /HPF) 1-3 H Ur Epithelial Cells (NONE,FEW) MOD H Urine Bacteria (NEG/NONE) MANY H Hyaline Casts (0/LPF) RARE H Urine Mucus (FEW,NONE) RARE Urine Hemoglobin (NEG) LARGE H Urine Glucose (N MG/DL) NEG 07/11 07/11 1328 1244 Chemistry Sodium (137 - 145 mmol/L) 132 L Potassium (3.5 - 5.1 mmol/L) 4.6 Chloride (98 - 107 mmol/L) 100 Carbon Dioxide (22 - 30 mmol/L) 21 L Anion Gap (5 - 16) 11 BUN (7 - 17 mg/dL) 73 H Creatinine (0.5 - 1.0 mg/dL) 3.5 H Estimated GFR (>60 ml/min) 13 L BUN/Creatinine Ratio (7 - 25 %) 20.9 Glucose (65 - 99 mg/dL) 123 H Calcium (8.4 - 10.2 mg/dL) 9.8 Magnesium (1.6 - 2.3 mg/dL) 2.6 H Total Bilirubin (0.2 - 1.3 mg/dL) 5.2 H AST (14 - 36 U/L) 21 ALT (9 - 52 U/L) 17 Alkaline Phosphatase (<127 U/L) 54 Troponin I (< 0.11 ng/ml) < 0.01 Total Protein (6.3 - 8.2 g/dL) 6.3 Albumin (3.5 - 5.0 g/dL) 2.9 L Globulin (1.9 - 4.2 gm/dL) 3.4 Albumin/Globulin Ratio (1.1 - 2.2 %) 0.9 L Hematology CBC w Diff NO MAN DIFF REQ WBC (4.8 - 10.8 /CUMM) 9.2 RBC (4.20 - 5.40 /CUMM) 2.36 L Hgb (12.0 - 16.0 G/DL) 7.0 *L Hct (37 - 47 %) 21.9 L MCV (81.0 - 99.0 FL) 93.0 MCH (27.0 - 31.0 PG) 29.9 MCHC (33.0 - 37.0 G/DL) 32.1 L RDW (11.5 - 14.5 %) 23.0 H Plt Count (130 - 400 /CUMM) 201 MPV (7.4 - 10.4 FL) 7.5 Gran % (42.2 - 75.2 %) 82.8 H Lymphocytes % (20.5 - 51.1 %) 8.7 L Monocytes % (1.7 - 9.3 %) 5.9 Eosinophils % (0 - 5 %) 2.6 Basophils % (0.0 - 2.0 %) 0 Absolute Granulocytes (1.4 - 6.5 /CUMM) 7.6 H Absolute Lymphocytes (1.2 - 3.4 /CUMM) 0.8 L Absolute Monocytes (0.10 - 0.60 /CUMM) 0.5 Absolute Eosinophils (0.0 - 0.7 /CUMM) 0.2 Absolute Basophils (0.0 - 0.2 /CUMM) 0 Urines Ur Random Creatinine (mg/dL) 128.4 Ur Random Sodium (30 - 90 mmol/L) < 5 L Ur Random Potassium (mmol/L) 25.9 Fraction Sodium Excret (<1% %) Imaging/Other Studies: EXAM TYPE: US - US-RENAL/KIDNEY EXAMINATION: US RETROPERITONEAL COMPLETE (RENAL) CLINICAL INFORMATION: PHYLLIS. COMPARISON: Ultrasound of abdomen 05/25/2017 TECHNIQUE: Real-time imaging of the kidneys and bladder. Exam was performed portable. Patient was unable to decubitus. The exam is limited by body habitus and bowel gas. FINDINGS: RIGHT KIDNEY: Not clearly visualized. LEFT KIDNEY: 12 x 5.4 x 5.2 cm (SAG x AP x TRV). The kidney is normal in size, contour, and echogenicity. Renal cortical thickness is normal. No calculi or focal parenchymal lesions. No hydronephrosis. BLADDER: Unable to visualize. IMPRESSION: 1. Limited study. Unable to visualize the right kidney or the bladder. 2. Normal ultrasound of the left kidney.. Assessment/Plan Assessment/Recommendations Assessment: Stage IV CKD - 2/2 incompletely recovered PHYLLIS in the setting of ATN from a GI Bleed. Has been brought up by Dr. 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 Should note that in the setting of microscopic hematuria, advanced liver disease can be associated with secondary IgA deposition in the kidney. PHYLLIS - SCr has been up since even just before Dr. Mccallum's visit when he went up on her diuretics. She has a low urine sodium suggestive of a salt avid state. She is total body volume expanded although it is possible that she is intravascularly volume depleted - her diuretics have been held. No clear outpatient insult that may have led to ATN. No evidence of obstruction. She does have microcopic hematuria with a previous serologic work-up including neg HIV, neg Hep B/C, neg JANY although doubt that an acute GN is leading to this rise in her SCr. Anemia - Iron deficient anemia. Needs a total of 5 doses of 200mg venofer. Was getting [id number] Epogen weekly which can be continued here. Folate stores adequate; I cannot find Vit B12. Recommendations: -Cont to hold diuretics -25% IV albumin q8 -?Abd US and consider diagnostic paracentesis if fluid there -C3, C4 -Epogen [id number] weekly -Needs to finish up 1g course of IV venofer - can get 200mg max of every other day -Check Vit B12 Please call [phone] with ?'s
[2017-07-13 14:24] VITALS: BP 110/78
[2017-07-13 21:49] VITALS: BP 139/62
[2017-07-14 06:52] VITALS: BP 120/80
--- NOTE | 2017-07-14 07:20 | PN- Housestaff ---
Oniel GAMBINO,Phil 07/14/17 0719: Subjective Follow-up For: PHYLLIS acute blood loss anemia on chronic anemia Subjective: Patient was seen and examined at bedside. She was resting comfortably. She had no acute events overnight. She was mildly lethargic, and complained of fatigue. She was also complaining of painful sore on the left aspect of her tongue. Most she is being moved to be taken for ultrasound she began having pain in her left leg. She has no other complaints. She denies any nausea, vomiting, fever, chills, diarrhea, vaginal bleeding. Review of Systems Constitutional: Denies: chills, malaise. EENTM: Reports: see HPI, mouth pain. Cardiovascular: Denies: chest pain, palpitations. Respiratory: Denies: cough, short of breath. Gastrointestinal: Denies: abdominal pain, bloating, melena, nausea, bloody stool, vomiting. Genitourinary: Reports: no symptoms. Musculoskeletal: Reports: see HPI, muscle pain. Skin: Reports: no symptoms. Objective Last 24 Hrs of Vital Signs/I&O Vital Signs Date Time Temp Pulse Resp B/P B/P Pulse O2 O2 Flow FiO2 Mean Ox Delivery Rate 07/14 0652 98.0 59 20 120/80 93 Room Air 07/13 2249 61 139/62 07/13 2149 97.9 61 18 139/62 94 / 1424 98.2 85 20 110/78 100 /07 1151 52 104/50 Intake & Output 07/14 0800 07/14 0000 07/13 1600 Intake Total 300 100 Output Total 350 Balance -50 100 Intake, Oral 300 100 Output, Urine 350 Physical Exam General Appearance: Oriented X3, Cooperative, No Acute Distress, lethargic Skin Temp/Moisture Exam: Warm/Dry HEENT: 1 cm ulceration of the L lateral aspect of the tongue Cardiovascular: Regular Rate, Normal S1, Normal S2 Lungs: diminished breaths sounds due to body habitus Abdomen: Normal Bowel Sounds, Soft, No Tenderness, obese, 2-3+ pitting edema of the caudal portion of the abd Neurological: Normal Speech, Sensation Intact Extremities: 3+ pitting edema with weeping areas of the distal lower extremities Current Medications: Current Medications Sig/Oleg Start time Last Medication Dose Route Stop Time Status Admin Acetaminophen 650 MG Q6P PRN 07/12 1730 AC PO Acyclovir 1 WOODROW 5 TIMES A DAY 07/11 1857 AC 07/14 TOP 0652 Albumin Human 25 GM Q8 07/13 1400 AC 07/14 IV 07/15 1200 0533 Escitalopram Oxalate 20 MG DAILY 07/12 1000 AC 07/13 PO 0906 Iron Sucrose 200 MG ONCE ONE 07/13 1630 DC 07/13 Sodium Chloride 100 ML IV 07/13 1729 1837 Lorazepam 0.5 MG AT BEDTIME 07/12 2199 AC 07/13 PO 07/19 2159 224 Melatonin 3 MG AT BEDTIME 07/12 2200 AC 07/13 PO 224 Omeprazole 40 MG DAILY AC 07/12 0700 AC 07/13 PO 0632 Propranolol HCl 10 MG BID 07/13 1000 AC 07/13 PO 224 Rifaximin 550 MG BID 07/12 2199 AC 07/13 PO 224 Last 24 Hrs of Lab/Srini Results Last 24 Hrs of Labs/Mics: Laboratory Tests 07/13/17 1125: PT 16.3 H, INR 1.49 H 07/13/17 0930: Ur Random Creatinine 69.0, Ur Random Sodium 8 L, Ur Random Potassium 18.1, Fraction Sodium Excret 0.3 Assessment/Plan Assessment: Patient is a 61-year-old female with a PMH significant for hepatorenal syndrome for which she was admitted to several months ago, postmenopausal bleeding, anemia, HTN, anxiety, depresison, fatty liver disease, questionable hypothyroid, hemmorrhoids, who presents to complaining of weakness, fatigue and chills. She was found to be anemic but not profoundly below her baseline in the ED, and she has hyponatremia and hyperkalemia. Renal US showed a normal L kidney but the R kidney and bladder were not visualized. #PHYLLIS on CKD This could be due to intravascular volume depletion despite signs of volume overload or possibly HRS - Continue IV albumin 25 g q 8 Hrs - abdominal US showed only trace ascites -Follow-up C3,C4 - Continue to hold diuretics and avoid nephrotoxic medications -GI and nephro recommendations appreciated #Normocitic Anemia, acute on chornic likely secondary to acute blood loss with recent vagnial bleeding Patient has a history of postmenopausal vaginal bleeding, she has followed with Dr. Arreola as an outpatient -Patient had acute drop in H/H today, she was transfused 1 unit PRBCs, will monitor respiratory status closely and give Lasix if the necessary -Epogen 1200 units weekly, last dose on 07/11/16 -Continue every other day dosing of IV venofer to goal dose of 1 g (received 200 mg yesterday, total dose 400 mg), will give third dose tomorrow -Continue to monitor BEP - will recommend outpatient Event Specialist Product Demonstrator consult as pt is no longer actively bleeding Diet: heart healthy, K+ restriction DVT ppx: ALPS, hold pharmacologic given anemia with vaginal bleeding Code status: Full Code Problem List: 1. Acute kidney injury superimposed on chronic kidney disease 2. Chronic anemia 3. Acute blood loss anemia Pain Ratin Pain Location: L leg and tongue Pain Goal: Pain 4 or less Pain Plan: pain pathway, avoid NSAIDs Tomorrow's Labs & Rationales: cbc, bep Andrés Jay MD 07/14/17 1355: Attending MD Review Statement Attending Statement Attending MD Statement: examined this patient, discuss w/resident/PA/HOT DIPPER, agreed w/resident/PA/HOT DIPPER, reviewed EMR data (avail) Attending Assessment/Plan: Agree with resident plan. Will continue treatment for likely hepatorenal syndrome, follow nephrology recommendations as well as GI, outpatient follow up for vaginal bleeding, continue IV iron, transfuse today, monitor CBC. If CBC and renal function stabilize can be discharged to [facility] either tomorrow or over the weekend.
[2017-07-14 08:16] LABS: ABSOLUTE BASOPHIL COUNT 0 /CUMM (0.0-0.2); ABSOLUTE EOSINOPHIL COUNT 0.4 /CUMM (0.0-0.7); ABSOLUTE GRANULOCYTE CT 5.2 /CUMM (1.4-6.5); ABSOLUTE MONOCYTE COUNT 0.5 /CUMM (0.10-0.60); BASOPHIL % 0.6 % (0.0-2.0); EOSINOPHIL % 6.1 % (0-5); GRANULOCYTE % 73.1 % (42.2-75.2); HEMATOCRIT 20.4 % (37-47); MEAN CORPUSCULAR HGB 30.6 PG (27.0-31.0); MEAN CORPUSCULAR HGB CONC 32.9 G/DL (33.0-37.0); MEAN CORPUSCULAR VOLUME 93.1 FL (81.0-99.0); MEAN PLATELET VOLUME 7.2 FL (7.4-10.4); PLATELET COUNT 168 /CUMM (130-400); RBC DISTRIBUTION WIDTH 24.2 % (11.5-14.5); RED BLOOD CELL CT 2.19 /CUMM (4.20-5.40); WHITE BLOOD CELL COUNT 7.1 /CUMM (4.8-10.8)
--- NOTE | 2017-07-14 11:09 | ULTRASOUND REPORT ---
EXAMINATION: US ABDOMEN LIMITED CLINICAL INFORMATION: History of liver failure. Worsening renal function. Evaluate for ascites.. COMPARISON: Abdomen ultrasound from 05/25/2017. TECHNIQUE: Limited sonographic imaging of the abdomen was performed in an attempt to identify presence or absence of ascites. FINDINGS: Small right pleural effusion. Minimal ascitic fluid is seen beneath the level of the right diaphragm. Otherwise, and no free fluid is identified within any of the other quadrants of the abdomen. IMPRESSION: 1. Small right pleural effusion. 2. Trace ascites.
--- NOTE | 2017-07-14 12:41 | PN- Nephrology ---
Assessment/Plan Nephrology Assessment: Stage IV CKD - 2/2 incompletely recovered PHYLLIS in the setting of ATN from a GI Bleed. Has been brought up by Dr. 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 Should note that in the setting of microscopic hematuria, advanced liver disease can be associated with secondary IgA deposition in the kidney. PHYLLIS - Likely 2/2 pre-renal azotemia - improving with holding diuretics (perhaps was intravascularly volume depleted despite third spacing of fluid in legs). Anemia - Iron deficient anemia. Needs a total of 5 doses of 200mg venofer. Was getting [id number] Epogen weekly which can be continued here. Folate and Vit B12 adequate. Suggestion: -Cont to hold diuretics - possibly restart tomorrow -Agree with 1U PRBC - can hold off on giving diuretics with it unless SOB -Cont 25% IV albumin q8 -f/u C3, C4 -Epogen 26000S weekly -Needs to finish up 1g course of IV venofer - can get 200mg max of every other day Please call [phone] with ?'s Subjective Subjective: SCr down to 2.6 Hg 6.7 c/o canker sore on tongue Objective Vital Signs and I&Os Vital Signs Date Time Temp Pulse Resp B/P B/P Pulse O2 O2 Flow FiO2 Mean Ox Delivery Rate 07/14 1055 98.0 59 20 120/80 07/14 0652 98.0 59 20 120/80 93 Room Air 07/13 2249 61 139/62 / 2149 97.9 61 18 139/62 94 / 1424 98.2 85 20 110/78 100 Intake & Output 07/14 1600 07/14 0400 07/13 1600 07/13 0400 07/12 1600 07/12 0400 Intake Total 100 300 700 225 100 240 Output Total 350 200 100 600 Balance 100 -50 500 125 100 -360 Intake, IV 100 600 225 Intake, Oral 0 300 100 100 240 Output, Urine 350 200 100 600 Patient 325 lb 325 lb Weight Weight Bed scale Bed scale Measurement Method Physical Exam: Gen - OK appearing HEENT - JVP visible CV - RRR, no m/r/g Chest - clear anteriorly, no w/r/r Abd - soft, NTND Ext - +edema Neuro - AOX3, grossly nonfocal Current Medications: Current Medications Sig/Oleg Start time Last Medication Dose Route Stop Time Status Admin Acetaminophen 650 MG Q6P PRN 07/12 1730 AC PO Acyclovir 1 WOODROW 5 TIMES A DAY 07/11 1857 AC 07/14 TOP 1059 Albumin Human 25 GM Q8 07/13 1400 AC 07/14 IV 07/15 1200 0533 Escitalopram Oxalate 20 MG DAILY 07/12 1000 AC 07/14 PO 1055 Iron Sucrose 200 MG ONCE ONE 07/13 1630 DC 07/13 Sodium Chloride 100 ML IV 07/13 1729 1837 Lorazepam 0.5 MG AT BEDTIME 07/12 2200 AC 07/13 PO 07/19 2159 2249 Melatonin 3 MG AT BEDTIME 07/12 2200 AC 07/13 PO 2249 Omeprazole 40 MG DAILY AC 07/12 0700 AC 07/13 PO 0632 Propranolol HCl 10 MG BID 07/13 1000 AC 07/14 PO 1055 Rifaximin 550 MG BID 07/12 2200 AC 07/14 PO 1055 Results Pertinent Lab Results: Laboratory Tests 07/14 07/13 07/13 0725 1125 0930 Chemistry Sodium (137 - 145 mmol/L) 139 Potassium (3.5 - 5.1 mmol/L) 3.8 Chloride (98 - 107 mmol/L) 105 Carbon Dioxide (22 - 30 mmol/L) 20 L Anion Gap (5 - 16) 14 BUN (7 - 17 mg/dL) 61 H Creatinine (0.5 - 1.0 mg/dL) 2.6 H Estimated GFR (>60 ml/min) 19 L BUN/Creatinine Ratio (7 - 25 %) 23.5 Coagulation PT (9.4 - 12.5 SEC) 16.3 H INR (0.90 - 1.19) 1.49 H Hematology CBC w Diff NO MAN DIFF REQ WBC (4.8 - 10.8 /CUMM) 7.1 RBC (4.20 - 5.40 /CUMM) 2.19 L Hgb (12.0 - 16.0 G/DL) 6.7 *L Hct (37 - 47 %) 20.4 L MCV (81.0 - 99.0 FL) 93.1 MCH (27.0 - 31.0 PG) 30.6 MCHC (33.0 - 37.0 G/DL) 32.9 L RDW (11.5 - 14.5 %) 24.2 H Plt Count (130 - 400 /CUMM) 168 MPV (7.4 - 10.4 FL) 7.2 L Gran % (42.2 - 75.2 %) 73.1 Lymphocytes % (20.5 - 51.1 %) 13.4 L Monocytes % (1.7 - 9.3 %) 6.8 Eosinophils % (0 - 5 %) 6.1 H Basophils % (0.0 - 2.0 %) 0.6 Absolute Granulocytes (1.4 - 6.5 /CUMM) 5.2 Absolute Lymphocytes (1.2 - 3.4 /CUMM) 1.0 L Absolute Monocytes (0.10 - 0.60 /CUMM) 0.5 Absolute Eosinophils (0.0 - 0.7 /CUMM) 0.4 Absolute Basophils (0.0 - 0.2 /CUMM) 0 Immunology Complement C3 Pending Complement C4 Pending Urines Ur Random Creatinine (mg/dL) 69.0 Ur Random Sodium (30 - 90 mmol/L) 8 L Ur Random Potassium (mmol/L) 18.1 Fraction Sodium Excret (<1% %) 0.3 0307 03/06 0608 1818 Chemistry Sodium (137 - 145 mmol/L) 136 L 130 L Potassium (3.5 - 5.1 mmol/L) 4.3 5.9 H Chloride (98 - 107 mmol/L) 102 100 Carbon Dioxide (22 - 30 mmol/L) 21 L 20 L Anion Gap (5 - 16) 12 10 BUN (7 - 17 mg/dL) 67 H 73 H Creatinine (0.5 - 1.0 mg/dL) 3.1 H 3.0 H Estimated GFR (>60 ml/min) 15 L 16 L BUN/Creatinine Ratio (7 - 25 %) 21.6 24.3 Calcium (8.4 - 10.2 mg/dL) 9.3 Phosphorus (2.5 - 4.5 mg/dL) 4.1 4.2 Magnesium (1.6 - 2.3 mg/dL) 2.7 H 2.7 H Vitamin B12 (239 - 931 pg/mL) > 1000 H TSH (0.270 - 4.200 uIU/mL) 6.470 H Thyroxine (T4) (4.5 - 10.9 ug/dL) 5.0 Hematology CBC w Diff NO MAN DIFF REQ MAN DIFF ORDERED WBC (4.8 - 10.8 /CUMM) 8.1 8.7 RBC (4.20 - 5.40 /CUMM) 2.31 L 2.49 L Hgb (12.0 - 16.0 G/DL) 7.1 *L 7.4 *L Hct (37 - 47 %) 21.5 L 22.8 L MCV (81.0 - 99.0 FL) 93.2 91.8 MCH (27.0 - 31.0 PG) 30.7 29.8 MCHC (33.0 - 37.0 G/DL) 33.0 32.4 L RDW (11.5 - 14.5 %) 23.7 H 23.8 H Plt Count (130 - 400 /CUMM) 171 201 MPV (7.4 - 10.4 FL) 7.4 8.1 Gran % (42.2 - 75.2 %) 75.5 H 81.2 H Lymphocytes % (20.5 - 51.1 %) 11.9 L 10.1 L Monocytes % (1.7 - 9.3 %) 8.2 5.4 Eosinophils % (0 - 5 %) 3.9 3.2 Basophils % (0.0 - 2.0 %) 0.5 0.1 Absolute Granulocytes (1.4 - 6.5 /CUMM) 6.1 7.0 H Segmented Neutrophils (42.2 - 75.2 %) 79 H Band Neutrophils (0.0 - 5.0 %) 2 Absolute Lymphocytes (1.2 - 3.4 /CUMM) 1.0 L 0.9 L Lymphocytes (20.5 - 51.1 %) 8 L Monocytes (1.7 - 9.3 %) 7 Absolute Monocytes (0.10 - 0.60 /CUMM) 0.7 H 0.5 Eosinophils (0 - 5.0 %) 4 Absolute Eosinophils (0.0 - 0.7 /CUMM) 0.3 0.3 Absolute Basophils (0.0 - 0.2 /CUMM) 0 0 Platelet Estimate (ADEQUATE) ADEQUATE Polychromasia 1+ Hypochromic-Microcytic 2+ Poikilocytosis 1+ Arun Cells 1+ Other Body Source Fld Total RBCs Counted (%) 100 05 07/11 1328 1328 Urines Urine Color (YEL,AMB,STR) YEL Urine Clarity (CLEAR) HAZY H Urine pH (5.0 - 8.0) 6.0 Ur Specific [place] (1.001 - 1.035) 1.020 Urine Protein (NEG,<30 MG/DL) 30 H Urine Ketones (NEG) NEG Urine Nitrite (NEG) NEG Urine Bilirubin (NEG) NEG Urine Urobilinogen (0.1 - 1.0 EU/dl) 0.2 Ur Leukocyte Esterase (NEG) NEG Ur Microscopic SEDIMENT EXAMINED Urine RBC (0 - 5 /HPF) 10-15 H Urine WBC (0 - 2 /HPF) 1-3 H Ur Epithelial Cells (NONE,FEW) MOD H Urine Bacteria (NEG/NONE) MANY H Hyaline Casts (0/LPF) RARE H Urine Mucus (FEW,NONE) RARE Urine Hemoglobin (NEG) LARGE H Ur Random Creatinine (mg/dL) 128.4 Ur Random Sodium (30 - 90 mmol/L) < 5 L Ur Random Potassium (mmol/L) 25.9 Fraction Sodium Excret (<1% %) Urine Glucose (N MG/DL) NEG 07/11 1244 Chemistry Sodium (137 - 145 mmol/L) 132 L Potassium (3.5 - 5.1 mmol/L) 4.6 Chloride (98 - 107 mmol/L) 100 Carbon Dioxide (22 - 30 mmol/L) 21 L Anion Gap (5 - 16) 11 BUN (7 - 17 mg/dL) 73 H Creatinine (0.5 - 1.0 mg/dL) 3.5 H Estimated GFR (>60 ml/min) 13 L BUN/Creatinine Ratio (7 - 25 %) 20.9 Glucose (65 - 99 mg/dL) 123 H Calcium (8.4 - 10.2 mg/dL) 9.8 Magnesium (1.6 - 2.3 mg/dL) 2.6 H Total Bilirubin (0.2 - 1.3 mg/dL) 5.2 H AST (14 - 36 U/L) 21 ALT (9 - 52 U/L) 17 Alkaline Phosphatase (<127 U/L) 54 Troponin I (< 0.11 ng/ml) < 0.01 Total Protein (6.3 - 8.2 g/dL) 6.3 Albumin (3.5 - 5.0 g/dL) 2.9 L Globulin (1.9 - 4.2 gm/dL) 3.4 Albumin/Globulin Ratio (1.1 - 2.2 %) 0.9 L Hematology CBC w Diff NO MAN DIFF REQ WBC (4.8 - 10.8 /CUMM) 9.2 RBC (4.20 - 5.40 /CUMM) 2.36 L Hgb (12.0 - 16.0 G/DL) 7.0 *L Hct (37 - 47 %) 21.9 L MCV (81.0 - 99.0 FL) 93.0 MCH (27.0 - 31.0 PG) 29.9 MCHC (33.0 - 37.0 G/DL) 32.1 L RDW (11.5 - 14.5 %) 23.0 H Plt Count (130 - 400 /CUMM) 201 MPV (7.4 - 10.4 FL) 7.5 Gran % (42.2 - 75.2 %) 82.8 H Lymphocytes % (20.5 - 51.1 %) 8.7 L Monocytes % (1.7 - 9.3 %) 5.9 Eosinophils % (0 - 5 %) 2.6 Basophils % (0.0 - 2.0 %) 0 Absolute Granulocytes (1.4 - 6.5 /CUMM) 7.6 H Absolute Lymphocytes (1.2 - 3.4 /CUMM) 0.8 L Absolute Monocytes (0.10 - 0.60 /CUMM) 0.5 Absolute Eosinophils (0.0 - 0.7 /CUMM) 0.2 Absolute Basophils (0.0 - 0.2 /CUMM) 0 Imaging/Other Studies: EXAM TYPE: US - US-LIMITED ABDOMEN EXAMINATION: US ABDOMEN LIMITED CLINICAL INFORMATION: History of liver failure. Worsening renal function. Evaluate for ascites.. COMPARISON: Abdomen ultrasound from 05/25/2017. TECHNIQUE: Limited sonographic imaging of the abdomen was performed in an attempt to identify presence or absence of ascites. FINDINGS: Small right pleural effusion. Minimal ascitic fluid is seen beneath the level of the right diaphragm. Otherwise, and no free fluid is identified within any of the other quadrants of the abdomen. IMPRESSION: 1. Small right pleural effusion. 2. Trace ascites. EXAM TYPE: US - US-RENAL/KIDNEY EXAMINATION: US RETROPERITONEAL COMPLETE (RENAL) CLINICAL INFORMATION: PHYLLIS. COMPARISON: Ultrasound of abdomen 05/25/2017 TECHNIQUE: Real-time imaging of the kidneys and bladder. Exam was performed portable. Patient was unable to decubitus. The exam is limited by body habitus and bowel gas. FINDINGS: RIGHT KIDNEY: Not clearly visualized. LEFT KIDNEY: 12 x 5.4 x 5.2 cm (SAG x AP x TRV). The kidney is normal in size, contour, and echogenicity. Renal cortical thickness is normal. No calculi or focal parenchymal lesions. No hydronephrosis. BLADDER: Unable to visualize. IMPRESSION: 1. Limited study. Unable to visualize the right kidney or the bladder. 2. Normal ultrasound of the left kidney..
--- NOTE | 2017-07-14 14:46 | PN- Gastroenterology ---
Assessment/Plan GI Assessment/Recommendations: Assessment: Ms. 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 That being said, her Stephan of less then 10 and her history of portal hypertension raises the possibility of HRS. She has had some mild improvement in her renal function from yesterday, but her GFR is still quite low. She has not had any further bleeding, but remains anemic for which she is getting transfused now. Recommendations: 1. Continue IV albumin 25 gm tid for 24-48 hours 2. Low sodium diet 3. Continue propanolol and xifaxan, but as she only has trace ascites on her US and is without any overt HE would hold the diuretics and lactulose. 4. Notify GI for signs of overt GI bleeding. 5. Gynecololgy follow up. 6. Follow renal recommendations, renal function and lytes and if she continues to have evidence of renal insufficiency in spite of adequete intravascular volume repletion would then consider using octreotide and midodrine for possible HRS. I will continue to follow this patient and make further recommendations based on her clinical course and results of repeat blood work. Subjective Subjective: no somatic complaints today except for some persistent fatigue. denies abdominal pain and she is tolerating a diet without any vomiting. getting a transfusion now. Objective Vital Signs and I&Os Vital Signs Date Time Temp Pulse Resp B/P B/P Pulse O2 O2 Flow FiO2 Mean Ox Delivery Rate 07/14 1055 98.0 59 20 120/80 07/14 0652 98.0 59 20 120/80 93 Room Air 07/13 2249 61 139/62 07/13 2149 97.9 61 18 139/62 94 Intake & Output 07/14 1600 07/14 0400 07/13 1600 07/13 0400 07/12 1600 07/12 0400 Intake Total 100 300 700 225 100 240 Output Total 350 200 100 600 Balance 100 -50 500 125 100 -360 Intake, IV 100 600 225 Intake, Oral 0 300 100 100 240 Output, Urine 350 200 100 600 Patient 325 lb 325 lb Weight Weight Bed scale Bed scale Measurement Method Physical Exam General Appearance: well developed/nourished, no apparent distress, comfortable Head: atraumatic, normal appearance Ears, Nose, Throat: normal pharynx, normal ENT inspection Neck: supple Respiratory: normal breath sounds, chest non-tender, no respiratory distress, quiet respiration Cardiovascular: regular rate/rhythm Abdomen: normal bowel sounds, soft, non-tender, no organomegaly Rectal: deferred Back: normal inspection Extremities: pedal edema Current Medications: Current Medications Sig/Oleg Start time Last Medication Dose Route Stop Time Status Admin Acetaminophen 650 MG Q6P PRN 07/12 1730 AC PO Acyclovir 1 WOODROW 5 TIMES A DAY 07/11 1857 AC 07/14 TOP 1059 Albumin Human 25 GM Q8 07/13 1400 AC 07/14 IV 07/15 1200 0533 Escitalopram Oxalate 20 MG DAILY 07/12 1000 AC 07/14 PO 1055 Iron Sucrose 200 MG ONCE ONE 07/13 1630 DC 07/13 Sodium Chloride 100 ML IV 07/13 1729 1837 Lorazepam 0.5 MG AT BEDTIME 07/12 2200 AC 07/13 PO 07/19 2159 2249 Melatonin 3 MG AT BEDTIME 07/12 2200 AC 07/13 PO 2249 Omeprazole 40 MG DAILY AC 07/12 0700 AC 07/13 PO 0632 Patient Medication 1 ED ONE ONE 07/14 1430 DC Teaching ED 07/14 1431 Propranolol HCl 10 MG BID 07/13 1000 AC 07/14 PO 1055 Rifaximin 550 MG BID 07/12 2200 AC 07/14 PO 1055 Results Pertinent Lab Results: Laboratory Tests 07/14 07/13 07/13 0725 1125 0930 Chemistry Sodium (137 - 145 mmol/L) 139 Potassium (3.5 - 5.1 mmol/L) 3.8 Chloride (98 - 107 mmol/L) 105 Carbon Dioxide (22 - 30 mmol/L) 20 L Anion Gap (5 - 16) 14 BUN (7 - 17 mg/dL) 61 H Creatinine (0.5 - 1.0 mg/dL) 2.6 H Estimated GFR (>60 ml/min) 19 L BUN/Creatinine Ratio (7 - 25 %) 23.5 Coagulation PT (9.4 - 12.5 SEC) 16.3 H INR (0.90 - 1.19) 1.49 H Hematology CBC w Diff NO MAN DIFF REQ WBC (4.8 - 10.8 /CUMM) 7.1 RBC (4.20 - 5.40 /CUMM) 2.19 L Hgb (12.0 - 16.0 G/DL) 6.7 *L Hct (37 - 47 %) 20.4 L MCV (81.0 - 99.0 FL) 93.1 MCH (27.0 - 31.0 PG) 30.6 MCHC (33.0 - 37.0 G/DL) 32.9 L RDW (11.5 - 14.5 %) 24.2 H Plt Count (130 - 400 /CUMM) 168 MPV (7.4 - 10.4 FL) 7.2 L Gran % (42.2 - 75.2 %) 73.1 Lymphocytes % (20.5 - 51.1 %) 13.4 L Monocytes % (1.7 - 9.3 %) 6.8 Eosinophils % (0 - 5 %) 6.1 H Basophils % (0.0 - 2.0 %) 0.6 Absolute Granulocytes (1.4 - 6.5 /CUMM) 5.2 Absolute Lymphocytes (1.2 - 3.4 /CUMM) 1.0 L Absolute Monocytes (0.10 - 0.60 /CUMM) 0.5 Absolute Eosinophils (0.0 - 0.7 /CUMM) 0.4 Absolute Basophils (0.0 - 0.2 /CUMM) 0 Immunology Complement C3 Pending Complement C4 Pending Urines Ur Random Creatinine (mg/dL) 69.0 Ur Random Sodium (30 - 90 mmol/L) 8 L Ur Random Potassium (mmol/L) 18.1 Fraction Sodium Excret (<1% %) 0.3 07/13 07/12 0608 1818 Chemistry Sodium (137 - 145 mmol/L) 136 L 130 L Potassium (3.5 - 5.1 mmol/L) 4.3 5.9 H Chloride (98 - 107 mmol/L) 102 100 Carbon Dioxide (22 - 30 mmol/L) 21 L 20 L Anion Gap (5 - 16) 12 10 BUN (7 - 17 mg/dL) 67 H 73 H Creatinine (0.5 - 1.0 mg/dL) 3.1 H 3.0 H Estimated GFR (>60 ml/min) 15 L 16 L BUN/Creatinine Ratio (7 - 25 %) 21.6 24.3 Calcium (8.4 - 10.2 mg/dL) 9.3 Phosphorus (2.5 - 4.5 mg/dL) 4.1 4.2 Magnesium (1.6 - 2.3 mg/dL) 2.7 H 2.7 H Vitamin B12 (239 - 931 pg/mL) > 1000 H TSH (0.270 - 4.200 uIU/mL) 6.470 H Thyroxine (T4) (4.5 - 10.9 ug/dL) 5.0 Hematology CBC w Diff NO MAN DIFF REQ MAN DIFF ORDERED WBC (4.8 - 10.8 /CUMM) 8.1 8.7 RBC (4.20 - 5.40 /CUMM) 2.31 L 2.49 L Hgb (12.0 - 16.0 G/DL) 7.1 *L 7.4 *L Hct (37 - 47 %) 21.5 L 22.8 L MCV (81.0 - 99.0 FL) 93.2 91.8 MCH (27.0 - 31.0 PG) 30.7 29.8 MCHC (33.0 - 37.0 G/DL) 33.0 32.4 L RDW (11.5 - 14.5 %) 23.7 H 23.8 H Plt Count (130 - 400 /CUMM) 171 201 MPV (7.4 - 10.4 FL) 7.4 8.1 Gran % (42.2 - 75.2 %) 75.5 H 81.2 H Lymphocytes % (20.5 - 51.1 %) 11.9 L 10.1 L Monocytes % (1.7 - 9.3 %) 8.2 5.4 Eosinophils % (0 - 5 %) 3.9 3.2 Basophils % (0.0 - 2.0 %) 0.5 0.1 Absolute Granulocytes (1.4 - 6.5 /CUMM) 6.1 7.0 H Segmented Neutrophils (42.2 - 75.2 %) 79 H Band Neutrophils (0.0 - 5.0 %) 2 Absolute Lymphocytes (1.2 - 3.4 /CUMM) 1.0 L 0.9 L Lymphocytes (20.5 - 51.1 %) 8 L Monocytes (1.7 - 9.3 %) 7 Absolute Monocytes (0.10 - 0.60 /CUMM) 0.7 H 0.5 Eosinophils (0 - 5.0 %) 4 Absolute Eosinophils (0.0 - 0.7 /CUMM) 0.3 0.3 Absolute Basophils (0.0 - 0.2 /CUMM) 0 0 Platelet Estimate (ADEQUATE) ADEQUATE Polychromasia 1+ Hypochromic-Microcytic 2+ Poikilocytosis 1+ [place] Cells 1+ Other Body Source Fld Total RBCs Counted (%) 100 Imaging/Other Studies: SERVICE DATE: 07/14/17- EXAM TYPE: US - US-LIMITED ABDOMEN EXAMINATION: US ABDOMEN LIMITED CLINICAL INFORMATION: History of liver failure. Worsening renal function. Evaluate for ascites.. COMPARISON: Abdomen ultrasound from 05/25/2017. TECHNIQUE: Limited sonographic imaging of the abdomen was performed in an attempt to identify presence or absence of ascites. FINDINGS: Small right pleural effusion. Minimal ascitic fluid is seen beneath the level of the right diaphragm. Otherwise, and no free fluid is identified within any of the other quadrants of the abdomen. IMPRESSION: 1. Small right pleural effusion. 2. Trace ascites.
[2017-07-14 16:00] VITALS: BP 104/54
[2017-07-14 22:29] VITALS: BP 112/70
[2017-07-14 23:37] LABS: ABSOLUTE BASOPHIL COUNT 0 /CUMM (0.0-0.2); ABSOLUTE EOSINOPHIL COUNT 0.2 /CUMM (0.0-0.7); ABSOLUTE GRANULOCYTE CT 8.4 /CUMM (1.4-6.5); ABSOLUTE LYMPH COUNT 0.8 /CUMM (1.2-3.4); ABSOLUTE MONOCYTE COUNT 0.4 /CUMM (0.10-0.60); BASOPHIL % 0.3 % (0.0-2.0); GRANULOCYTE % 86.1 % (42.2-75.2); HEMATOCRIT 22.6 % (37-47); MEAN CORPUSCULAR HGB 29.8 PG (27.0-31.0); MEAN CORPUSCULAR HGB CONC 31.8 G/DL (33.0-37.0); MEAN CORPUSCULAR VOLUME 93.6 FL (81.0-99.0); MEAN PLATELET VOLUME 7.3 FL (7.4-10.4); PLATELET COUNT 164 /CUMM (130-400); RBC DISTRIBUTION WIDTH 23.8 % (11.5-14.5); RED BLOOD CELL CT 2.41 /CUMM (4.20-5.40); WHITE BLOOD CELL COUNT 9.7 /CUMM (4.8-10.8)
--- NOTE | 2017-07-15 06:58 | PN- Housestaff ---
Oniel GAMBINO,Phil 07/15/17 0658: Subjective Follow-up For: PHYLLIS on ckd acute blood loss anemia on chronic anemia on chronic anemia Subjective: Patient seen and examined at bedside. She is more alert today than yesterday is feeling better overall. She tolerated her transfusion of 1 unit PRBCs while yesterday. She is complaining of left thigh pain which she believes she injured in the transition to go down to ultrasound yesterday., she has no other complaints. She denies any vaginal bleeding, nausea, vomiting, fever, chills, chest pain, shortness of breath. Review of Systems Constitutional: Denies: chills. EENTM: Reports: no symptoms. Cardiovascular: Reports: no symptoms. Respiratory: Denies: cough, short of breath. Gastrointestinal: Reports: no symptoms. Genitourinary: Reports: no symptoms. Musculoskeletal: Reports: see HPI, muscle pain. Skin: Reports: no symptoms. Objective Last 24 Hrs of Vital Signs/I&O Vital Signs Date Time Temp Pulse Resp B/P B/P Pulse O2 O2 Flow FiO2 Mean Ox Delivery Rate 07/149 98.7 69 19 112/70 97 Room Air 07/14 2107 58 100/58 07/14 1600 97.8 54 20 104/54 98 Room Air Room Air 07/14 1055 98.0 59 20 120/80 Intake & Output 07/15 0800 07/15 0000 07/14 1600 Intake Total 240 240 120 Output Total Balance 240 240 120 Intake, Oral 240 240 120 Number 0 Bowel Movements Patient 327 lb 325 lb Weight Weight Bed scale Measurement Method Physical Exam General Appearance: Alert, Oriented X3, Cooperative, No Acute Distress Skin Temp/Moisture Exam: Warm/Dry Sepsis Skin Exam (color): Normal for Ethnicity Cardiovascular: Regular Rate, Normal S1, Normal S2 Lungs: diminished breath sounds secondary to body habitus Abdomen: Normal Bowel Sounds, Soft, No Tenderness, obese, 2-3 pitting edema of lower distal abdomen Neurological: Normal Speech, Normal Tone, Sensation Intact Extremities: 3+ pitting edema of the distal LEs, wrapped in GIAN bandages, L thigh TTP Current Medications: Current Medications Sig/Oleg Start time Last Medication Dose Route Stop Time Status Admin Acetaminophen 650 MG .STK-MED ONE 07/14 181 DC PO 07/14 1816 Acetaminophen 650 MG Q6P PRN 07/12 1730 AC 07/14 PO 1817 Acyclovir 1 WOODROW 5 TIMES A DAY 07/11 1857 DC 07/14 TOP 1059 Albumin Human 25 GM Q8 07/13 1400 AC 07/15 IV 07/15 1200 0647 Escitalopram Oxalate 20 MG DAILY 07/12 1000 AC 07/14 PO 1055 Lorazepam 0.5 MG AT BEDTIME 07/12 2199 AC 07/14 PO 07/19 2159 2105 Melatonin 3 MG AT BEDTIME 07/12 2199 AC 07/14 PO 2105 Omeprazole 40 MG DAILY AC 07/12 0700 AC 07/15 PO 0628 Patient Medication 1 ED ONE ONE 07/14 1430 DC 07/14 Teaching ED 07/14 1431 1713 Propranolol HCl 10 MG BID 07/13 1000 AC 07/14 PO 1055 Rifaximin 550 MG BID 07/12 220 AC 07/14 PO 2105 Triamcinolone 1 WOODROW BID 07/14 1519 AC 07/14 Acetonide TOP 2105 Last 24 Hrs of Lab/Srini Results Last 24 Hrs of Labs/Mics: Laboratory Tests 07/14/172204: CBC w Diff MAN DIFF ORDERED, RBC 2.41 L, MCV 93.6, MCH 29.8, MCHC 31.8 L, RDW 23.8 H, MPV 7.3 L, Gran % 86.1 H, Lymphocytes % 7.8 L, Monocytes % 3.8, Eosinophils % 2.0, Basophils % 0.3, Absolute Granulocytes 8.4 H, Segmented Neutrophils 88 H, Band Neutrophils 1, Absolute Lymphocytes 0.8 L, Lymphocytes 7 L, Monocytes 3, Absolute Monocytes 0.4, Eosinophils 1, Absolute Eosinophils 0.2, Absolute Basophils 0, Platelet Estimate ADEQUATE, Polychromasia 1+, Hypochromic-Microcytic 1+, Poikilocytosis 1+, Basophilic Stippling SLIGHT, Ovalocytes 1+, Fld Total RBCs Counted 100 07/14/17 0725: Anion Gap 14, Estimated GFR 19 L, BUN/Creatinine Ratio 23.5, CBC w Diff NO MAN DIFF REQ, RBC 2.19 L, MCV 93.1, MCH 30.6, MCHC 32.9 L, RDW 24.2 H, MPV 7.2 L , Gran % 73.1, Lymphocytes % 13.4 L, Monocytes % 6.8, Eosinophils % 6.1 H, Basophils % 0.6, Absolute Granulocytes 5.2, Absolute Lymphocytes 1.0 L, Absolute Monocytes 0.5, Absolute Eosinophils 0.4, Absolute Basophils 0, Complement C3 Pending, Complement C4 Pending Assessment/Plan Assessment: Patient is a 61-year-old female with a PMH significant for hepatorenal syndrome for which she was admitted to several months ago, postmenopausal bleeding, anemia, HTN, anxiety, depresison, fatty liver disease, questionable hypothyroid, hemmorrhoids, who presents to complaining of weakness, fatigue and chills. She was found to be anemic but not profoundly below her baseline in the ED, and she has hyponatremia and hyperkalemia. Renal US showed a normal L kidney but the R kidney and bladder were not visualized. #PHYLLIS on CKD This could be due to intravascular volume depletion despite signs of volume overload or possibly HRS. Mild increase in Cr today - Continue IV albumin 25 g q 8 Hrs - abdominal US showed only trace ascites - if worsening Cr and BP remains boarderline, will consider starting octreotide and midodrine - Continue to hold diuretics and avoid nephrotoxic medications -GI and nephro recommendations appreciated -Continue fluid restriction #Normocitic Anemia, acute on chornic likely secondary to acute blood loss with recent vagnial bleeding Patient has a history of postmenopausal vaginal bleeding, she has followed with Dr. Arreola as an outpatient -H/H responded appropriately to PRBC transfusion -Epogen 1200 units weekly, last dose on 07/11/16, next dose on 07/18/17 if still a patient -Continue every other day dosing of IV venofer to goal dose of 1 g (received 200 mg today, total dose 600 mg), will give third dose tomorrow -Continue to monitor BEP - will recommend outpatient Tobacco Classer consult as pt is no longer actively bleeding Diet: heart healthy DVT ppx: ALPS, hold pharmacologic given anemia with vaginal bleeding Code status: Full Code Problem List: 1. Acute kidney injury superimposed on chronic kidney disease Pain Ratin Pain Location: L thigh Pain Goal: Pain 4 or less Pain Plan: conservative pain management with tylenol Tomorrow's Labs & Rationales: cbc, bep Andrés Jay MD 07/15/17 1138: Attending Review Statement Attending Statement Attending MD Statement: examined this patient, discuss w/resident/PA/FORGING PRESS OPERATOR, agreed w/resident/PA/FORGING PRESS OPERATOR, reviewed EMR data (avail) Attending Assessment/Plan: 61F PMH alcohol/LIAO cirrhosis, HTN, anxiety admitted with fatigue secondary to PHYLLIS, due to likely hepatorenal syndrome, with chronic anemia requiring transfusion of 1 pRBC. Patient is still fatigued today, though she is lucid and displaying no signs of encephalopathy. Her renal function is slightly worse today. She has no other complaints. 1. Hepatorenal syndrome 2. Alcoholic cirrhosis 3. Chronic symptomatic anemia secondary to cirrhosis Plan - Continue on general medicine - Continue albumin infusion - Follow GI and nephrology recommendations - Transfuse to Hgb > 7 - Continue home medications, holding diuretics for now - Monitor renal function and CBC daily - DVT Ppx
[2017-07-15 07:05] VITALS: BP 107/54
[2017-07-15 08:12] LABS: ABSOLUTE BASOPHIL COUNT 0 /CUMM (0.0-0.2); ABSOLUTE LYMPH COUNT 1.2 /CUMM (1.2-3.4); BASOPHIL % 0.5 % (0.0-2.0); MEAN PLATELET VOLUME 7.4 FL (7.4-10.4); RBC DISTRIBUTION WIDTH 23.4 % (11.5-14.5)
[2017-07-15 08:37] LABS: ABSOLUTE EOSINOPHIL COUNT 0.1 /CUMM (0.0-0.7); ABSOLUTE GRANULOCYTE CT 8.2 /CUMM (1.4-6.5); ABSOLUTE MONOCYTE COUNT 0.4 /CUMM (0.10-0.60); EOSINOPHIL % 1.5 % (0-5); GRANULOCYTE % 82.1 % (42.2-75.2); HEMATOCRIT 22.5 % (37-47); MEAN CORPUSCULAR HGB 30.4 PG (27.0-31.0); MEAN CORPUSCULAR HGB CONC 32.4 G/DL (33.0-37.0); MEAN CORPUSCULAR VOLUME 93.6 FL (81.0-99.0); PLATELET COUNT 154 /CUMM (130-400)
--- NOTE | 2017-07-15 12:15 | PN- Nephrology ---
Assessment/Plan Nephrology Assessment: Stage IV CKD - 2/2 incompletely recovered PHYLLIS in the setting of ATN from a GI Bleed. Has been brought up by Dr. 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 Should note that in the setting of microscopic hematuria, advanced liver disease can be associated with secondary IgA deposition in the kidney. C3 and C4 low although likely 2/2 liver disease rather than involvement in a glomerular process. PHYLLIS - Clearly a pre-renal process with a low urine Na. Question brought up whether this is just intravascular volume depletion from overdiuresis (does have peripheral edema in the setting of a low serum albumin - trace ascites on Abd US ) vs a process such as HRS. If this is the later, it would certainly be more consistent with a "Type II HRS" which is chronic as her T bili is stable, INR is better, ammonia is low, and she is actively receiving IV Albumin (so not clear what to do with the lab). Depending on her lab trend, starting midodrine and octreotide is not unreasonable although should note that these combined with IV albumin would not otherwise be a chronic therapy. Anemia - Iron deficient anemia. Needs a total of 5 doses of 200mg venofer. Was getting [id number] Epogen weekly which can be continued here. Folate and Vit B12 adequate. Suggestion: -Cont to hold diuretics today -Cont IV albumin for the next day -Would hold off on midodrine, octreotide for now but if SCr >3.5 tomorrow and SBP<110mmHg, can start midodrine 5mg TID and octreotide 100mcg TID -Epogen [id number] weekly -Needs to finish up 1g course of IV venofer - can get 200mg max of every other day Please call [phone] with ?'s Subjective Subjective: SCr 3.0 Complements low with UA with 10-15 RBC's and 1-3 WBC's and 30mg/dl protein Albumin 2.9; INR 1.49 UA <5 and then 8 Minimal ascites on US yesterday Feeling less tired Objective Vital Signs and I&Os Vital Signs Date Time Temp Pulse Resp B/P B/P Pulse O2 O2 Flow FiO2 Mean Ox Delivery Rate 07/15 0921 60 110/56 07/15 0705 97.9 59 18 107/54 97 Room Air 07/149 98.7 69 19 112/70 97 Room Air 07/14 2107 58 100/58 07/14 1600 97.8 54 20 104/54 98 Room Air Room Air Intake & Output 07/15 1600 07/15 0400 07/14 1600 07/14 0400 07/13 1600 07/13 0400 Intake Total 240 240 220 300 700 225 Output Total 350 200 100 Balance 240 240 220 -50 500 125 Intake, IV 100 600 225 Intake, Oral 240 240 120 300 100 Number 1 0 Bowel Movements Output, Urine 350 200 100 Patient 327 lb 325 lb 325 lb 325 lb Weight Weight Bed scale Bed scale Bed scale Measurement Method Physical Exam: Gen - OK appearing HEENT - supple CV - RRR, no m/r/g Chest - clear anteriorly, no w/r/r Abd - soft, NTND Ext - +edema Neuro - AOX3, grossly nonfocal Current Medications: Current Medications Sig/Oleg Start time Last Medication Dose Route Stop Time Status Admin Acetaminophen 650 MG .STK-MED ONE 07/14 1816 DC PO 07/14 1817 Acetaminophen 650 MG Q6P PRN 07/12 1730 AC 07/14 PO 1817 Acyclovir 1 WOODROW 5 TIMES A DAY 07/11 1857 DC 07/14 TOP 1059 Albumin Human 25 GM Q8 07/13 1400 DC 07/15 IV 07/15 1200 0647 Escitalopram Oxalate 20 MG DAILY 07/12 1000 AC 07/15 PO 0921 Iron Sucrose 200 MG ONCE ONE 07/15 0945 DC 07/15 Sodium Chloride 100 ML IV 07/15 0959 1032 Lorazepam 0.5 MG AT BEDTIME 07/12 2200 AC 07/14 PO 07/19 2159 2105 Melatonin 3 MG AT BEDTIME 07/12 2200 AC 07/14 PO 2105 Nystatin 1 WOODROW BID 07/15 1203 AC TOP Omeprazole 40 MG DAILY AC 07/12 0700 AC 07/15 PO 0628 Patient Medication 1 ED ONE ONE 07/14 1430 DC 07/14 Teaching ED 07/14 1431 1713 Propranolol HCl 10 MG BID 07/13 1000 AC 07/15 PO 0921 Rifaximin 550 MG BID 07/12 2200 AC 07/15 PO 0921 Triamcinolone 1 WOODROW BID 07/14 1519 AC 07/15 Acetonide TOP 0921 Results Pertinent Lab Results: Laboratory Tests 07/15 07/14 0720 2205 Chemistry Sodium (137 - 145 mmol/L) 140 Potassium (3.5 - 5.1 mmol/L) 4.0 Chloride (98 - 107 mmol/L) 102 Carbon Dioxide (22 - 30 mmol/L) 23 Anion Gap (5 - 16) 14 BUN (7 - 17 mg/dL) 66 H Creatinine (0.5 - 1.0 mg/dL) 3.0 H Estimated GFR (>60 ml/min) 16 L BUN/Creatinine Ratio (7 - 25 %) 22.0 Hematology CBC w Diff NO MAN DIFF REQ MAN DIFF ORDERED WBC (4.8 - 10.8 /CUMM) 10.0 9.7 RBC (4.20 - 5.40 /CUMM) 2.40 L 2.41 L Hgb (12.0 - 16.0 G/DL) 7.3 *L 7.2 *L Hct (37 - 47 %) 22.5 L 22.6 L MCV (81.0 - 99.0 FL) 93.6 93.6 MCH (27.0 - 31.0 PG) 30.4 29.8 MCHC (33.0 - 37.0 G/DL) 32.4 L 31.8 L RDW (11.5 - 14.5 %) 23.4 H 23.8 H Plt Count (130 - 400 /CUMM) 154 164 MPV (7.4 - 10.4 FL) 7.4 7.3 L Gran % (42.2 - 75.2 %) 82.1 H 86.1 H Lymphocytes % (20.5 - 51.1 %) 11.7 L 7.8 L Monocytes % (1.7 - 9.3 %) 4.2 3.8 Eosinophils % (0 - 5 %) 1.5 2.0 Basophils % (0.0 - 2.0 %) 0.5 0.3 Absolute Granulocytes (1.4 - 6.5 /CUMM) 8.2 H 8.4 H Segmented Neutrophils (42.2 - 75.2 %) 88 H Band Neutrophils (0.0 - 5.0 %) 1 Absolute Lymphocytes (1.2 - 3.4 /CUMM) 1.2 0.8 L Lymphocytes (20.5 - 51.1 %) 7 L Monocytes (1.7 - 9.3 %) 3 Absolute Monocytes (0.10 - 0.60 /CUMM) 0.4 0.4 Eosinophils (0 - 5.0 %) 1 Absolute Eosinophils (0.0 - 0.7 /CUMM) 0.1 0.2 Absolute Basophils (0.0 - 0.2 /CUMM) 0 0 Platelet Estimate (ADEQUATE) ADEQUATE Polychromasia 1+ Hypochromic-Microcytic 1+ Poikilocytosis 1+ Basophilic Stippling SLIGHT Ovalocytes 1+ Other Body Source Fld Total RBCs Counted (%) 100 07/14 07/13 07/13 0725 1125 0930 Chemistry Sodium (137 - 145 mmol/L) 139 Potassium (3.5 - 5.1 mmol/L) 3.8 Chloride (98 - 107 mmol/L) 105 Carbon Dioxide (22 - 30 mmol/L) 20 L Anion Gap (5 - 16) 14 BUN (7 - 17 mg/dL) 61 H Creatinine (0.5 - 1.0 mg/dL) 2.6 H Estimated GFR (>60 ml/min) 19 L BUN/Creatinine Ratio (7 - 25 %) 23.5 Coagulation PT (9.4 - 12.5 SEC) 16.3 H INR (0.90 - 1.19) 1.49 H Hematology CBC w Diff NO MAN DIFF REQ WBC (4.8 - 10.8 /CUMM) 7.1 RBC (4.20 - 5.40 /CUMM) 2.19 L Hgb (12.0 - 16.0 G/DL) 6.7 *L Hct (37 - 47 %) 20.4 L MCV (81.0 - 99.0 FL) 93.1 MCH (27.0 - 31.0 PG) 30.6 MCHC (33.0 - 37.0 G/DL) 32.9 L RDW (11.5 - 14.5 %) 24.2 H Plt Count (130 - 400 /CUMM) 168 MPV (7.4 - 10.4 FL) 7.2 L Gran % (42.2 - 75.2 %) 73.1 Lymphocytes % (20.5 - 51.1 %) 13.4 L Monocytes % (1.7 - 9.3 %) 6.8 Eosinophils % (0 - 5 %) 6.1 H Basophils % (0.0 - 2.0 %) 0.6 Absolute Granulocytes (1.4 - 6.5 /CUMM) 5.2 Absolute Lymphocytes (1.2 - 3.4 /CUMM) 1.0 L Absolute Monocytes (0.10 - 0.60 /CUMM) 0.5 Absolute Eosinophils (0.0 - 0.7 /CUMM) 0.4 Absolute Basophils (0.0 - 0.2 /CUMM) 0 Immunology Complement C3 (83 - 193 mg/dL) 61 L Complement C4 (15 - 57 mg/dL) 12 L Urines Ur Random Creatinine (mg/dL) 69.0 Ur Random Sodium (30 - 90 mmol/L) 8 L Ur Random Potassium (mmol/L) 18.1 Fraction Sodium Excret (<1% %) 0.3 07 03 0608 1818 Chemistry Sodium (137 - 145 mmol/L) 136 L 130 L Potassium (3.5 - 5.1 mmol/L) 4.3 5.9 H Chloride (98 - 107 mmol/L) 102 100 Carbon Dioxide (22 - 30 mmol/L) 21 L 20 L Anion Gap (5 - 16) 12 10 BUN (7 - 17 mg/dL) 67 H 73 H Creatinine (0.5 - 1.0 mg/dL) 3.1 H 3.0 H Estimated GFR (>60 ml/min) 15 L 16 L BUN/Creatinine Ratio (7 - 25 %) 21.6 24.3 Calcium (8.4 - 10.2 mg/dL) 9.3 Phosphorus (2.5 - 4.5 mg/dL) 4.1 4.2 Magnesium (1.6 - 2.3 mg/dL) 2.7 H 2.7 H Vitamin B12 (239 - 931 pg/mL) > 1000 H TSH (0.270 - 4.200 uIU/mL) 6.470 H Thyroxine (T4) (4.5 - 10.9 ug/dL) 5.0 Hematology CBC w Diff NO MAN DIFF REQ MAN DIFF ORDERED WBC (4.8 - 10.8 /CUMM) 8.1 8.7 RBC (4.20 - 5.40 /CUMM) 2.31 L 2.49 L Hgb (12.0 - 16.0 G/DL) 7.1 *L 7.4 *L Hct (37 - 47 %) 21.5 L 22.8 L MCV (81.0 - 99.0 FL) 93.2 91.8 MCH (27.0 - 31.0 PG) 30.7 29.8 MCHC (33.0 - 37.0 G/DL) 33.0 32.4 L RDW (11.5 - 14.5 %) 23.7 H 23.8 H Plt Count (130 - 400 /CUMM) 171 201 MPV (7.4 - 10.4 FL) 7.4 8.1 Gran % (42.2 - 75.2 %) 75.5 H 81.2 H Lymphocytes % (20.5 - 51.1 %) 11.9 L 10.1 L Monocytes % (1.7 - 9.3 %) 8.2 5.4 Eosinophils % (0 - 5 %) 3.9 3.2 Basophils % (0.0 - 2.0 %) 0.5 0.1 Absolute Granulocytes (1.4 - 6.5 /CUMM) 6.1 7.0 H Segmented Neutrophils (42.2 - 75.2 %) 79 H Band Neutrophils (0.0 - 5.0 %) 2 Absolute Lymphocytes (1.2 - 3.4 /CUMM) 1.0 L 0.9 L Lymphocytes (20.5 - 51.1 %) 8 L Monocytes (1.7 - 9.3 %) 7 Absolute Monocytes (0.10 - 0.60 /CUMM) 0.7 H 0.5 Eosinophils (0 - 5.0 %) 4 Absolute Eosinophils (0.0 - 0.7 /CUMM) 0.3 0.3 Absolute Basophils (0.0 - 0.2 /CUMM) 0 0 Platelet Estimate (ADEQUATE) ADEQUATE Polychromasia 1+ Hypochromic-Microcytic 2+ Poikilocytosis 1+ [place] Cells 1+ Other Body Source Fld Total RBCs Counted (%) 100 Imaging/Other Studies: None new
[2017-07-15 14:32] VITALS: BP 130/84
[2017-07-15 22:24] VITALS: BP 106/70
[2017-07-16 06:05] VITALS: BP 114/66
--- NOTE | 2017-07-16 08:07 | PN- Housestaff ---
Oniel GAMBINO,Phil 07/16/17 0807: Subjective Follow-up For: PHYLLIS on CDK acute blood loss anemia on chronic anemia on chronic anemia Subjective: Patient seen and examined at bedside. She is lethargic today. Her left thigh pain is improving.she has no new complaints. She denies any vaginal bleeding, nausea, vomiting, fever, chills, chest pain, shortness of breath. Review of Systems Constitutional: Reports: no symptoms. EENTM: Reports: no symptoms. Cardiovascular: Reports: no symptoms. Respiratory: Reports: no symptoms. Gastrointestinal: Reports: no symptoms. Genitourinary: Reports: no symptoms. Musculoskeletal: Reports: see HPI. Skin: Reports: no symptoms. Objective Last 24 Hrs of Vital Signs/I&O Vital Signs Date Time Temp Pulse Resp B/P B/P Pulse O2 O2 Flow FiO2 Mean Ox Delivery Rate 07/16 604 97.5 59 20 114/66 92 07/15 2231 57 106/70 07/15 2224 97.6 57 20 106/70 96 Room Air 07/15 1432 97.8 63 20 130/84 93 Room Air 07/15 1413 Room Air Room Air 07/15 0921 60 110/56 Intake & Output 07/16 1600 07/16 0800 07/16 0000 Intake Total 240 600 Output Total 300 500 Balance -60 100 Intake, Oral 240 600 Output, Urine 300 500 Physical Exam General Appearance: Oriented X3, Cooperative, No Acute Distress, lethargic Skin Temp/Moisture Exam: Warm/Dry Cardiovascular: Regular Rate, Normal S1, Normal S2 Lungs: diminished breath sounds secondary to body habitus Abdomen: Normal Bowel Sounds, Soft, No Tenderness, pitting edema of the lower abdomen Extremities: 3+ pitting edema of the LEs bilaterally with some weeping areas Current Medications: Current Medications Sig/Oleg Start time Last Medication Dose Route Stop Time Status Admin Acetaminophen 650 MG Q6P PRN 07/12 1730 AC 07/14 PO 1817 Albumin Human 25 GM Q8 07/15 2200 AC 07/16 IV 0511 Albumin Human 25 GM Q8 07/13 1400 DC 07/15 IV 07/15 1200 0647 Escitalopram Oxalate 20 MG DAILY 07/12 1000 AC 07/15 PO 0921 Iron Sucrose 200 MG ONCE ONE 07/15 0945 DC 07/15 Sodium Chloride 100 ML IV 07/15 0959 1032 Lorazepam 0.5 MG AT BEDTIME 07/120 AC 07/15 PO 07/19 2159 2230 Melatonin 3 MG AT BEDTIME 07/12 2200 AC 07/15 PO 2230 Nystatin 1 WOODROW BID 07/15 1203 AC 07/15 TOP 2230 Omeprazole 40 MG DAILY AC 07/12 0700 AC 07/16 PO 0510 Propranolol HCl 10 MG BID 07/13 1000 AC 07/15 PO 0921 Rifaximin 550 MG BID 07/12 2200 AC 07/15 PO 2230 Triamcinolone 1 WOODROW BID 07/14 1519 AC 07/15 Acetonide TOP 2230 Last 24 Hrs of Lab/Srini Results Last 24 Hrs of Labs/Mics: Laboratory Tests 07/16/17 0720: Sodium Pending, Potassium Pending, Chloride Pending, Carbon Dioxide Pending, Anion Gap Pending, BUN Pending, Creatinine Pending, BUN/Creatinine Ratio Pending , CBC w Diff Pending, WBC Pending, RBC Pending, Hgb Pending, Hct Pending, MCV Pending, MCH Pending, MCHC Pending, RDW Pending, Plt Count Pending, MPV Pending Assessment/Plan Assessment: Patient is a 61-year-old female with a PMH significant for hepatorenal syndrome for which she was admitted to several months ago, postmenopausal bleeding, anemia, HTN, anxiety, depresison, fatty liver disease, questionable hypothyroid, hemmorrhoids, who presents to complaining of weakness, fatigue and chills. She was found to be anemic but not profoundly below her baseline in the ED, and she has hyponatremia and hyperkalemia. Renal US showed a normal L kidney but the R kidney and bladder were not visualized. #PHYLLIS on CKD Renal function is worsening despite albumin supplementation. This could represent HRS - Continue IV albumin 25 g q 8 Hrs - start midodrine and octreotide - Continue to hold diuretics and avoid nephrotoxic medications -GI and nephro recommendations appreciated -Continue fluid restriction #Normocitic Anemia, acute on chornic likely secondary to acute blood loss with recent vagnial bleeding Patient has a history of postmenopausal vaginal bleeding, she has followed with Dr. Arreola as an outpatient -H/H is stable -Epogen 1200 units weekly, last dose on 07/11/16, next dose on 07/18/17 if still a patient -Continue every other day dosing of IV venofer to goal dose of 1 g (received 200 mg yesterday, total dose 600 mg), will give fourth dose tomorrow -Continue to monitor BEP - will recommend outpatient Practice Representative consult as pt is no longer actively bleeding Diet: heart healthy DVT ppx: ALPS, hold pharmacologic given anemia with vaginal bleeding Code status: Full Code Problem List: 1. Acute kidney injury superimposed on chronic kidney disease 2. Hepatorenal syndrome Pain Ratin Pain Location: none Pain Goal: Remain pain free Pain Plan: pain pathway Tomorrow's Labs & Rationales: cbc, bep Andrés Jay MD 07/16/17 1440: Attending MD Review Statement Attending Statement Attending MD Statement: examined this patient, discuss w/resident/PA/CIRCULAR KNITTER, agreed w/resident/PA/CIRCULAR KNITTER, reviewed EMR data (avail) Attending Assessment/Plan: 61F PMH alcohol/LIAO cirrhosis, HTN, anxiety admitted with fatigue secondary to PHYLLIS, due to likely hepatorenal syndrome, with chronic anemia requiring transfusion of 1 pRBC. Patient is still fatigued today, though she is lucid and displaying no signs of encephalopathy. Her renal function is slightly worse today. She has no other complaints. 1. Hepatorenal syndrome 2. Alcoholic cirrhosis 3. Chronic symptomatic anemia secondary to cirrhosis Plan - Continue on general medicine - Continue albumin infusion - Follow GI and nephrology recommendations - Transfuse to Hgb > 7 - Continue home medications, holding diuretics for now - Monitor renal function and CBC daily - DVT Ppx
[2017-07-16 08:46] LABS: ABSOLUTE BASOPHIL COUNT 0 /CUMM (0.0-0.2); ABSOLUTE EOSINOPHIL COUNT 0.4 /CUMM (0.0-0.7); ABSOLUTE LYMPH COUNT 1.3 /CUMM (1.2-3.4); ABSOLUTE MONOCYTE COUNT 0.7 /CUMM (0.10-0.60); BASOPHIL % 0.5 % (0.0-2.0); EOSINOPHIL % 5.7 % (0-5); GRANULOCYTE % 67.2 % (42.2-75.2); HEMATOCRIT 22.1 % (37-47); MEAN CORPUSCULAR HGB 30.9 PG (27.0-31.0); MEAN CORPUSCULAR VOLUME 93.6 FL (81.0-99.0); MEAN PLATELET VOLUME 7.3 FL (7.4-10.4); PLATELET COUNT 145 /CUMM (130-400); RBC DISTRIBUTION WIDTH 23.8 % (11.5-14.5); RED BLOOD CELL CT 2.36 /CUMM (4.20-5.40); WHITE BLOOD CELL COUNT 7.5 /CUMM (4.8-10.8)
--- NOTE | 2017-07-16 12:10 | PN- Nephrology ---
Assessment/Plan Nephrology Assessment: PHYLLIS: Suspect T2 Hepatorenal. UA not consistent with glomerular disease, Renal function worsening despite Albumin/holding diuretics ruling out prerenal azotemia, renal US negative for hydro. No acute dialytic need. Would start octreotide/midodrine for HRS. despite edema, agree with holding diuretics for now. Suggestion: Octreotide 200 mcg sc q8 midodrine 10 mg po tid daily labs, strict ins/outs, daily weights d/w primary team Subjective Subjective: No acute events Renal function continues to worsen despite holding her diuretics and despite a trial of salt poor albumin Urine output recorded at only 500 mL per 24 hours however RN reports this was likely an inaccurate collection She feels weak and tired but does not feel worse today, taking some by mouth Review of Systems: Positive edema Positive recent weight loss No chest pain or shortness of breath Objective Vital Signs and I&Os Vital Signs Date Time Temp Pulse Resp B/P B/P Pulse O2 O2 Flow FiO2 Mean Ox Delivery Rate 07/16 0902 60 116/68 07/16 0605 97.5 59 20 114/66 92 07/15 2231 57 106/70 07/15 2224 97.6 57 20 106/70 96 Room Air 07/15 1432 97.8 63 20 130/84 93 Room Air 07/15 1413 Room Air Room Air Intake & Output 07/16 1600 07/16 0400 07/15 1600 07/15 0400 07/14 1600 07/14 0400 Intake Total 240 600 720 240 220 300 Output Total 300 500 350 Balance -60 100 720 240 220 -50 Intake, IV 100 Intake, Oral 240 600 720 240 120 300 Number 2 0 Bowel Movements Output, Urine 300 500 350 Patient 327 lb 325 lb Weight Weight Bed scale Measurement Method Physical Exam: General: NAD, A+O x3. HEENT: NC/AT. + icterus. Moist mucosa Neck: negative for JOSÉ MIGUEL, JVD CV: RRR, no m/r/g Pulm: CTAB, no rales Abd: soft, NT, mild distension Lower Ext: 3+ pitting edema, up to thighs Neuro: neg tremor, asterixis Skin: +spider angiomas : no briscoe catheter Current Medications: Current Medications Sig/Oleg Start time Last Medication Dose Route Stop Time Status Admin Acetaminophen 650 MG Q6P PRN 07/12 1730 AC 07/14 PO 1817 Albumin Human 25 GM Q8 07/15 2200 AC 07/16 IV 0511 Escitalopram Oxalate 20 MG DAILY 07/12 1000 AC 07/16 PO 0902 Lorazepam 0.5 MG AT BEDTIME 07/12 2199 AC 07/15 PO 07/19 2158 2230 Melatonin 3 MG AT BEDTIME 07/12 2200 AC 07/15 PO 2230 Midodrine 10 MG Q8 07/16 1400 UNVr PO Nystatin 1 WOODROW BID 07/15 1203 AC 07/16 TOP 0903 Octreotide Acetate 200 MCG Q8 07/16 1400 UNVr SC Omeprazole 40 MG DAILY AC 07/12 0700 AC 07/16 PO 0510 Propranolol HCl 10 MG BID 07/13 1000 AC 07/16 PO 0902 Rifaximin 550 MG BID 07/12 2199 AC 07/16 PO 09 Triamcinolone 1 WOODROW TID 07/16 1000 AC Acetonide TOP Triamcinolone 1 WOODROW BID 07/14 1519 DC 07/16 Acetonide TOP 0902 Results Pertinent Lab Results: Laboratory Tests 07/16 07/15 0720 0720 Chemistry Sodium (137 - 145 mmol/L) 138 140 Potassium (3.5 - 5.1 mmol/L) 3.8 4.0 Chloride (98 - 107 mmol/L) 100 102 Carbon Dioxide (22 - 30 mmol/L) 24 23 Anion Gap (5 - 16) 14 14 BUN (7 - 17 mg/dL) 69 H 66 H Creatinine (0.5 - 1.0 mg/dL) 3.2 H 3.0 H Estimated GFR (>60 ml/min) 15 L 16 L BUN/Creatinine Ratio (7 - 25 %) 21.6 22.0 Hematology CBC w Diff NO MAN DIFF REQ NO MAN DIFF REQ WBC (4.8 - 10.8 /CUMM) 7.5 10.0 RBC (4.20 - 5.40 /CUMM) 2.36 L 2.40 L Hgb (12.0 - 16.0 G/DL) 7.3 *L 7.3 *L Hct (37 - 47 %) 22.1 L 22.5 L MCV (81.0 - 99.0 FL) 93.6 93.6 MCH (27.0 - 31.0 PG) 30.9 30.4 MCHC (33.0 - 37.0 G/DL) 33.0 32.4 L RDW (11.5 - 14.5 %) 23.8 H 23.4 H Plt Count (130 - 400 /CUMM) 145 154 MPV (7.4 - 10.4 FL) 7.3 L 7.4 Gran % (42.2 - 75.2 %) 67.2 82.1 H Lymphocytes % (20.5 - 51.1 %) 16.8 L 11.7 L Monocytes % (1.7 - 9.3 %) 9.8 H 4.2 Eosinophils % (0 - 5 %) 5.7 H 1.5 Basophils % (0.0 - 2.0 %) 0.5 0.5 Absolute Granulocytes (1.4 - 6.5 /CUMM) 5.0 8.2 H Absolute Lymphocytes (1.2 - 3.4 /CUMM) 1.3 1.2 Absolute Monocytes (0.10 - 0.60 /CUMM) 0.7 H 0.4 Absolute Eosinophils (0.0 - 0.7 /CUMM) 0.4 0.1 Absolute Basophils (0.0 - 0.2 /CUMM) 0 0 03/08 03/08 2205 0725 Chemistry Sodium (137 - 145 mmol/L) 139 Potassium (3.5 - 5.1 mmol/L) 3.8 Chloride (98 - 107 mmol/L) 105 Carbon Dioxide (22 - 30 mmol/L) 20 L Anion Gap (5 - 16) 14 BUN (7 - 17 mg/dL) 61 H Creatinine (0.5 - 1.0 mg/dL) 2.6 H Estimated GFR (>60 ml/min) 19 L BUN/Creatinine Ratio (7 - 25 %) 23.5 Hematology CBC w Diff MAN DIFF ORDERED NO MAN DIFF REQ WBC (4.8 - 10.8 /CUMM) 9.7 7.1 RBC (4.20 - 5.40 /CUMM) 2.41 L 2.19 L Hgb (12.0 - 16.0 G/DL) 7.2 *L 6.7 *L Hct (37 - 47 %) 22.6 L 20.4 L MCV (81.0 - 99.0 FL) 93.6 93.1 MCH (27.0 - 31.0 PG) 29.8 30.6 MCHC (33.0 - 37.0 G/DL) 31.8 L 32.9 L RDW (11.5 - 14.5 %) 23.8 H 24.2 H Plt Count (130 - 400 /CUMM) 164 168 MPV (7.4 - 10.4 FL) 7.3 L 7.2 L Gran % (42.2 - 75.2 %) 86.1 H 73.1 Lymphocytes % (20.5 - 51.1 %) 7.8 L 13.4 L Monocytes % (1.7 - 9.3 %) 3.8 6.8 Eosinophils % (0 - 5 %) 2.0 6.1 H Basophils % (0.0 - 2.0 %) 0.3 0.6 Absolute Granulocytes (1.4 - 6.5 /CUMM) 8.4 H 5.2 Segmented Neutrophils (42.2 - 75.2 %) 88 H Band Neutrophils (0.0 - 5.0 %) 1 Absolute Lymphocytes (1.2 - 3.4 /CUMM) 0.8 L 1.0 L Lymphocytes (20.5 - 51.1 %) 7 L Monocytes (1.7 - 9.3 %) 3 Absolute Monocytes (0.10 - 0.60 /CUMM) 0.4 0.5 Eosinophils (0 - 5.0 %) 1 Absolute Eosinophils (0.0 - 0.7 /CUMM) 0.2 0.4 Absolute Basophils (0.0 - 0.2 /CUMM) 0 0 Platelet Estimate (ADEQUATE) ADEQUATE Polychromasia 1+ Hypochromic-Microcytic 1+ Poikilocytosis 1+ Basophilic Stippling SLIGHT Ovalocytes 1+ Immunology Complement C3 (83 - 193 mg/dL) 61 L Complement C4 (15 - 57 mg/dL) 12 L Other Body Source Fld Total RBCs Counted (%) 100
[2017-07-16 15:29] VITALS: BP 108/62
[2017-07-16 21:59] VITALS: BP 118/66
[2017-07-17 06:54] VITALS: BP 104/56
--- NOTE | 2017-07-17 08:19 | PN- Housestaff ---
Oniel GAMBINO,Phil 07/17/17 0819: Subjective Follow-up For: PHYLLIS on CDK possible HRS acute blood loss anemia on chronic anemia on chronic anemia Subjective: Patient seen and examined at bedside. She is more alert today. Her left thigh pain continues to improve. she is having some vaginal bleeding today. And reports pain in the ulcer on her left lateral tongue. She denies , nausea, vomiting, fever, chills, chest pain, shortness of breath. Review of Systems Constitutional: Denies: chills. EENTM: Reports: see HPI, mouth pain. Cardiovascular: Reports: no symptoms. Respiratory: Reports: no symptoms. Gastrointestinal: Reports: no symptoms. Genitourinary: Reports: see HPI. Musculoskeletal: Reports: see HPI. Skin: Reports: no symptoms. Objective Last 24 Hrs of Vital Signs/I&O Vital Signs Date Time Temp Pulse Resp B/P B/P Pulse O2 O2 Flow FiO2 Mean Ox Delivery Rate 07/17 0554 98.1 96 20 104/56 94 07/17 0000 Room Air 07/16 2158 98.1 59 20 118/66 91 07/16 2144 60 118/66 07/16 1529 98.1 78 20 108/62 92 07/16 0902 60 116/68 Intake & Output 07/17 1600 07/17 0800 07/17 0000 Intake Total 240 480 Output Total 275 300 Balance -35 180 Intake, Oral 240 480 Output, Urine 275 300 Physical Exam General Appearance: Alert, Oriented X3, Cooperative, No Acute Distress Skin Temp/Moisture Exam: Warm/Dry HEENT: scleral icterus Cardiovascular: Regular Rate, Normal S1, Normal S2 Lungs: diminished breaths ounds secondary to body habitus Abdomen: Normal Bowel Sounds, Soft, No Tenderness, pitting edema of the lower abdomen Extremities: 3+ pitting edema of the LEs, currently wrapped with GIAN Current Medications: Current Medications Sig/Oleg Start time Last Medication Dose Route Stop Time Status Admin Acetaminophen 650 MG Q6P PRN 07/12 1730 AC 07/16 PO 2145 Albumin Human 25 GM Q8 07/15 220 AC 07/17 IV 0556 Escitalopram Oxalate 20 MG DAILY 07/12 1000 AC 07/16 PO 09 Lorazepam 0.5 MG AT BEDTIME 07/12 2199 AC 07/16 PO 07/19 Melatonin 3 MG AT BEDTIME 07/12 2199 AC 07/16 PO 2143 Midodrine 10 MG Q8 07/16 1400 AC 07/17 PO 0557 Nystatin 1 WOODROW BID 07/15 1203 AC 07/16 TOP 2144 Octreotide Acetate 200 MCG Q8 07/16 1400 AC 07/17 SC 0557 Omeprazole 40 MG DAILY AC 07/12 0700 AC 07/17 PO 0557 Propranolol HCl 10 MG BID 07/13 1000 AC 07/16 PO 2144 Rifaximin 550 MG BID 07/12 2200 AC 07/16 PO 2143 Triamcinolone 1 WOODROW TID 07/16 1000 AC 07/16 Acetonide TOP 214 Triamcinolone 1 WOODROW BID 07/14 1519 DC 07/16 Acetonide TOP 0902 Last 24 Hrs of Lab/Srini Results Last 24 Hrs of Labs/Mics: Laboratory Tests 07/17/17 0712: Sodium Pending, Potassium Pending, Chloride Pending, Carbon Dioxide Pending, Anion Gap Pending, BUN Pending, Creatinine Pending, BUN/Creatinine Ratio Pending , CBC w Diff Pending, WBC Pending, RBC Pending, Hgb Pending, Hct Pending, MCV Pending, MCH Pending, MCHC Pending, RDW Pending, Plt Count Pending, MPV Pending Assessment/Plan Assessment: Patient is a 61-year-old female with a PMH significant for hepatorenal syndrome for which she was admitted to several months ago, postmenopausal bleeding, anemia, HTN, anxiety, depresison, fatty liver disease, questionable hypothyroid, hemmorrhoids, who presents to complaining of weakness, fatigue and chills. She was found to be anemic but not profoundly below her baseline in the ED, and she has hyponatremia and hyperkalemia. Renal US showed a normal L kidney but the R kidney and bladder were not visualized. #PHYLLIS on CKD; possibly HRS Renal function is continues to worsen despite albumin supplementation and with the addition of octreotide and midodrine - Continue IV albumin 25 g q 8 Hrs - continue midodrine and octreotide - DC PPI as it has been shown to cause nephrotoxicity in some cases - Continue to hold diuretics and avoid nephrotoxic medications - GI and nephro recommendations appreciated - Continue fluid restriction #Normocitic Anemia, acute on chornic likely secondary to acute blood loss with recent vagnial bleeding Patient reported mild vaginal bleeding today. H/H is improving. -H/H is stable -Epogen 1200 units weekly, last dose on 07/11/16, next dose on 07/18/17 -Continue every other day dosing of IV venofer to goal dose of 1 g (received 200 mg today, total dose 800 mg), will give fourth dose tomorrow -Continue to monitor BEP - will recommend outpatient [employer] Consultant consult as pt is no longer actively bleeding #LE swelling with small weeping wounds - wound care consult placed, will follow up reccomendations Diet: heart healthy DVT ppx: Patient not receiving any DVT prophylaxis due to discomfort of the lower extremities with else and vaginal bleeding with acute on chronic blood loss anemia. These risks were discussed with the patient and frequent ambulation was encouraged. Code status: Full Code Problem List: 1. Hepatorenal syndrome 2. Acute kidney injury superimposed on chronic kidney disease 3. Postmenopausal bleeding 4. Anemia Pain Ratin Pain Location: none Pain Goal: Remain pain free Pain Plan: pain pathway Tomorrow's Labs & Rationales: cbc, bep Pierre GAMBINO,Andrés 07/17/17 1319: Attending MD Review Statement Attending Statement Attending MD Statement: examined this patient, discuss w/resident/PA/MANAGER DRIVE, agreed w/resident/PA/MANAGER DRIVE, reviewed EMR data (avail) Attending Assessment/Plan: 61F PMH alcohol/LIAO cirrhosis, HTN, anxiety admitted with fatigue secondary to PHYLLIS, due to likely hepatorenal syndrome, with chronic anemia requiring transfusion of 1 pRBC. Patient is still fatigued today, though she is lucid and displaying no signs of encephalopathy. Her renal function is slightly worse today. She has no other complaints. 1. Hepatorenal syndrome 2. Alcoholic cirrhosis 3. Chronic symptomatic anemia secondary to cirrhosis Plan - Continue on general medicine - Continue albumin infusion - Follow GI and nephrology recommendations - Transfuse to Hgb > 7 - Continue home medications, holding diuretics for now - Monitor renal function and CBC daily - DVT Ppx
[2017-07-17 08:51] LABS: ABSOLUTE BASOPHIL COUNT 0.1 /CUMM (0.0-0.2); ABSOLUTE EOSINOPHIL COUNT 0.5 /CUMM (0.0-0.7); ABSOLUTE GRANULOCYTE CT 5.5 /CUMM (1.4-6.5); ABSOLUTE LYMPH COUNT 1.1 /CUMM (1.2-3.4); ABSOLUTE MONOCYTE COUNT 0.8 /CUMM (0.10-0.60); BASOPHIL % 0.8 % (0.0-2.0); EOSINOPHIL % 6.3 % (0-5); GRANULOCYTE % 69.7 % (42.2-75.2); HEMATOCRIT 22.7 % (37-47); MEAN CORPUSCULAR HGB 31.2 PG (27.0-31.0); MEAN CORPUSCULAR VOLUME 94.6 FL (81.0-99.0); MEAN PLATELET VOLUME 7.3 FL (7.4-10.4); PLATELET COUNT 163 /CUMM (130-400); RBC DISTRIBUTION WIDTH 24.3 % (11.5-14.5); WHITE BLOOD CELL COUNT 7.9 /CUMM (4.8-10.8)
[2017-07-17 14:35] VITALS: BP 110/68
[2017-07-17 22:04] VITALS: BP 90/50
[2017-07-18 06:04] VITALS: BP 122/60
--- NOTE | 2017-07-18 07:24 | PN- Housestaff ---
Oniel GAMBINO,Phil 07/18/17 0724: Subjective Follow-up For: PHYLLIS on CDK possible HRS acute blood loss anemia on chronic anemia on chronic anemia Subjective: Patient was seen and examined at bedside. She was more lethargic today than yesterday. She continues to have minimal vaginal bleeding. She has no other complaints Review of Systems Constitutional: Reports: no symptoms. EENTM: Reports: no symptoms. Cardiovascular: Reports: no symptoms. Respiratory: Reports: no symptoms. Gastrointestinal: Reports: no symptoms. Genitourinary: Reports: see HPI. Musculoskeletal: Reports: no symptoms. Objective Last 24 Hrs of Vital Signs/I&O Vital Signs Date Time Temp Pulse Resp B/P B/P Pulse O2 O2 Flow FiO2 Mean Ox Delivery Rate 07/18 0604 98.0 51 20 122/60 93 07/17 2204 98.1 50 20 90/50 91 Room Air 07/17 2159 50 90/50 07/17 1435 97.6 46 20 110/68 92 Room Air 07/17 0932 96 108/58 Intake & Output 07/18 0800 07/18 0000 07/17 1600 Intake Total 340 250 580 Output Total 475 300 300 Balance -135 -50 280 Intake, IV 100 100 Intake, Oral 240 250 480 Number 1 Bowel Movements Output, Urine 475 300 300 Physical Exam General Appearance: Oriented X3, Cooperative, No Acute Distress, lethargic Skin Temp/Moisture Exam: Warm/Dry Cardiovascular: Regular Rate, Normal S1, Normal S2 Lungs: diminished secondary to body habitus Abdomen: obese, with no tenderness to palpation, pitting edema in the lower portion Current Medications: Current Medications Sig/Oleg Start time Last Medication Dose Route Stop Time Status Admin Acetaminophen 650 MG Q6P PRN 07/12 1730 AC 07/16 PO 2146 Albumin Human 25 GM Q8 07/15 2200 AC 07/18 IV 0533 Epoetin Guille 12,000 UNITS ONCE ONE 07/18 1000 CAN SC 07/18 1001 Epoetin Guille 10,000 UNIT ONCE ONE 07/18 1000 AC SC 07/18 1001 Epoetin Guille 2,000 UNIT ONCE ONE 07/18 1000 AC SC 07/18 1001 Escitalopram Oxalate 20 MG DAILY 07/12 1000 AC 07/17 PO 0932 Famotidine 20 MG DAILY 07/18 1000 AC PO Iron Sucrose 200 MG ONCE ONE 07/17 1345 DC 07/17 Sodium Chloride 100 ML IV 07/17 1401 1621 Lorazepam 0.5 MG AT BEDTIME 07/12 2200 AC 07/17 PO 07/19 2159 2157 Melatonin 3 MG AT BEDTIME 07/12 2200 AC 07/17 PO 215 Midodrine 10 MG Q8 07/16 1400 AC 07/18 PO 0535 Nystatin 1 WOODROW BID 07/15 1203 AC 07/17 TOP 2156 Octreotide Acetate 200 MCG Q8 07/16 1400 AC 07/18 SC 0533 Omeprazole 40 MG DAILY AC 07/12 0700 DC 07/17 PO 0557 Propranolol HCl 10 MG BID 07/13 1000 AC 07/17 PO 0932 Rifaximin 550 MG BID 07/12 2200 AC 07/17 PO 215 Triamcinolone 1 WOODROW TID 07/16 1000 AC 07/17 Acetonide TOP 2156 Assessment/Plan Assessment: Patient is a 61-year-old female with a PMH significant for hepatorenal syndrome for which she was admitted to several months ago, postmenopausal bleeding, anemia, HTN, anxiety, depresison, fatty liver disease, questionable hypothyroid, hemmorrhoids, who presents to complaining of weakness, fatigue and chills. She was found to be anemic but not profoundly below her baseline in the ED, and she has hyponatremia and hyperkalemia. Renal US showed a normal L kidney but the R kidney and bladder were not visualized. Patient to go for Proline access tomorrow AM. She has difficult access and is expected to have a prolonged stay with possibility of transfer #PHYLLIS on CKD; HRS Renal function is continues to worsen despite albumin supplementation and with the addition of octreotide and midodrine - Continue IV albumin 25 g q 8 Hrs - continue midodrine and octreotide - will need to reassess MELD score, previously 29. Will defer to GI for need for transfer to a hepatic transplant center for further work-up. will check LFTs and INR tomorrow. Patient stopped drinking appoximately 5 months ago. - Continue to hold diuretics and avoid nephrotoxic medications - GI and nephro recommendations appreciated - Continue fluid restriction - also recheck urine lytes to ensure no interval change in renal function #Normocitic Anemia, acute on chornic likely secondary to acute blood loss with recent vagnial bleeding Patient reported mild vaginal bleeding today. H/H is improving. -H/H is stable -Epogen 1200 units given 07/18/17, next dose on 07/25/17 -Continue every other day dosing of IV venofer to goal dose of 1 g (received 200 mg yesterday, total dose 800 mg), will give fifth dose tomorrow -Continue to monitor BEP - will recommend outpatient [employer] Mechanic consult as pt is no longer actively bleeding #LE swelling with small weeping wounds - wound care consult placed, will follow up reccomendations Diet: heart healthy, NPO at midnight DVT ppx: Patient not receiving any DVT prophylaxis due to discomfort of the lower extremities with else and vaginal bleeding with acute on chronic blood loss anemia. These risks were discussed with the patient and frequent ambulation was encouraged. Code status: Full Code Problem List: 1. Hepatorenal syndrome 2. Acute kidney injury superimposed on chronic kidney disease 3. Anemia Pain Ratin Pain Location: none Pain Goal: Remain pain free Pain Plan: pain pathway Tomorrow's Labs & Rationales: cbc, bep, LFTs, INR Andrés Jay MD 07/18/17 1425: Attending MD Review Statement Attending Statement Attending MD Statement: examined this patient, discuss w/resident/PA/CLIENT RELATION SPECIALIST, agreed w/resident/PA/CLIENT RELATION SPECIALIST, reviewed EMR data (avail) Attending Assessment/Plan: 61F PMH alcohol/LIAO cirrhosis, HTN, anxiety admitted with fatigue secondary to PHYLLIS, due to likely hepatorenal syndrome, with chronic anemia requiring transfusion of 1 pRBC. Patient is still fatigued today, though she is lucid and displaying no signs of encephalopathy. Her renal function is slightly worse today. She has no other complaints. 1. Hepatorenal syndrome 2. Alcoholic cirrhosis 3. Chronic symptomatic anemia secondary to cirrhosis Plan - Continue on general medicine - Will obtain Proline for IV access - Continue albumin, octreotide, midodrine infusion - Follow GI and nephrology recommendations - Transfuse to Hgb > 7 - Continue home medications, holding diuretics for now - Monitor renal function and CBC daily - DVT PPx
[2017-07-18 09:32] LABS: ABSOLUTE BASOPHIL COUNT 0.1 /CUMM (0.0-0.2); ABSOLUTE EOSINOPHIL COUNT 0.4 /CUMM (0.0-0.7); ABSOLUTE GRANULOCYTE CT 6.9 /CUMM (1.4-6.5); ABSOLUTE MONOCYTE COUNT 0.5 /CUMM (0.10-0.60); BASOPHIL % 0.8 % (0.0-2.0); GRANULOCYTE % 78.1 % (42.2-75.2); MEAN CORPUSCULAR HGB 30.5 PG (27.0-31.0); MEAN CORPUSCULAR HGB CONC 32.5 G/DL (33.0-37.0); MEAN CORPUSCULAR VOLUME 93.8 FL (81.0-99.0); MEAN PLATELET VOLUME 7.3 FL (7.4-10.4); PLATELET COUNT 186 /CUMM (130-400); RBC DISTRIBUTION WIDTH 22.5 % (11.5-14.5); RED BLOOD CELL CT 2.45 /CUMM (4.20-5.40); WHITE BLOOD CELL COUNT 8.8 /CUMM (4.8-10.8)
--- NOTE | 2017-07-18 14:24 | PN- Nephrology ---
Assessment/Plan Nephrology Assessment: Stage IV CKD - 2/2 incompletely recovered PHYLLIS in the setting of ATN from a GI Bleed. Has been brought up by Dr. 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 Should note that in the setting of microscopic hematuria, advanced liver disease can be associated with secondary IgA deposition in the kidney. C3 and C4 low although likely 2/2 liver disease rather than involvement in a glomerular process. 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 She has been started on therapy. Will need GI input - may need expedited transplant evaluation. Anemia - Iron deficient anemia. Needs a total of 5 doses of 200mg venofer. Was getting [id number] Epogen weekly which can be continued here. Folate and Vit B12 adequate. Suggestion: -Cont to hold diuretics today -Cont current course of 10mg PO midodrine TID, octeotide 200mcg TID, and 25% albumin TID -Epogen [id number] weekly -Needs to finish up 1g course of IV venofer - can get 200mg max of every other day -f/u GI -Would recheck LFT's -Recheck Urine Na Please call [phone] with ?'s Subjective Subjective: Feeling tired Hg 7.5 SCr up to 3.6 - on midodrine, octreotide, albumin Diuretics cont to be held Objective Vital Signs and I&Os Vital Signs Date Time Temp Pulse Resp B/P B/P Pulse O2 O2 Flow FiO2 Mean Ox Delivery Rate 07/18 1216 Room Air Room Air 07/18 1036 58 120/58 07/18 0604 98.0 51 20 122/60 93 07/17 2204 98.1 50 20 90/50 91 Room Air 07/17 2159 50 90/50 07/17 1435 97.6 46 20 110/68 92 Room Air Intake & Output 07/18 1600 07/18 0400 07/17 1600 07/17 0400 07/16 1600 07/16 0400 Intake Total 340 250 279 529 5392 600 Output Total 475 300 575 300 800 500 Balance -135 -50 245 180 320 100 Intake, IV 100 100 100 Intake, Oral 240 250 552 933 0492 600 Number 1 Bowel Movements Output, Urine 475 300 575 300 800 500 Physical Exam: Gen - tired appearing HEENT - supple CV - RRR, no m/r/g Chest - clear, no w/r/r Abd - soft, NTND Ext - ++edema Skin - no rash Current Medications: Current Medications Sig/Oleg Start time Last Medication Dose Route Stop Time Status Admin Acetaminophen 650 MG Q6P PRN 07/12 1730 AC 07/16 PO 2146 Albumin Human 25 GM Q8 07/15 2200 AC 07/18 IV 1343 Epoetin Guille 12,000 UNITS ONCE ONE 07/18 1000 CAN SC 07/18 1001 Epoetin Guille 10,000 UNIT ONCE ONE 07/18 1000 DC 07/18 SC 07/18 1001 1036 Epoetin Guille 2,000 UNIT ONCE ONE 07/18 1000 DC 07/18 SC 07/18 1001 1037 Escitalopram Oxalate 20 MG DAILY 07/12 1000 AC 07/18 PO 1035 Famotidine 20 MG DAILY 07/18 1000 AC 07/18 PO 1036 Lorazepam 0.5 MG AT BEDTIME 07/12 2200 AC 07/17 PO 07/19 2159 2157 Melatonin 3 MG AT BEDTIME 07/12 2200 AC 07/17 PO 2156 Midodrine 10 MG Q8 07/16 1400 AC 07/18 PO 1343 Nystatin 1 WOODROW BID 07/15 1203 AC 07/18 TOP 1037 Octreotide Acetate 200 MCG Q8 07/16 1400 AC 07/18 SC 1341 Propranolol HCl 10 MG BID 07/13 1000 AC 07/18 PO 1036 Rifaximin 550 MG BID 07/12 2200 AC 07/18 PO 1035 Triamcinolone 1 WOODROW TID 07/16 1000 AC 07/18 Acetonide TOP 1037 Results Pertinent Lab Results: Laboratory Tests 07/18 07/17 0917 0712 Chemistry Sodium (137 - 145 mmol/L) 136 L 137 Potassium (3.5 - 5.1 mmol/L) 4.3 4.0 Chloride (98 - 107 mmol/L) 103 102 Carbon Dioxide (22 - 30 mmol/L) 19 L 24 Anion Gap (5 - 16) 14 12 BUN (7 - 17 mg/dL) 71 H 68 H Creatinine (0.5 - 1.0 mg/dL) 3.6 H 3.5 H Estimated GFR (>60 ml/min) 13 L 13 L BUN/Creatinine Ratio (7 - 25 %) 19.7 19.4 Hematology CBC w Diff NO MAN DIFF REQ NO MAN DIFF REQ WBC (4.8 - 10.8 /CUMM) 8.8 7.9 RBC (4.20 - 5.40 /CUMM) 2.45 L 2.40 L Hgb (12.0 - 16.0 G/DL) 7.5 L 7.5 L Hct (37 - 47 %) 23.0 L 22.7 L MCV (81.0 - 99.0 FL) 93.8 94.6 MCH (27.0 - 31.0 PG) 30.5 31.2 H MCHC (33.0 - 37.0 G/DL) 32.5 L 33.0 RDW (11.5 - 14.5 %) 22.5 H 24.3 H Plt Count (130 - 400 /CUMM) 186 163 MPV (7.4 - 10.4 FL) 7.3 L 7.3 L Gran % (42.2 - 75.2 %) 78.1 H 69.7 Lymphocytes % (20.5 - 51.1 %) 11.5 L 13.6 L Monocytes % (1.7 - 9.3 %) 5.6 9.6 H Eosinophils % (0 - 5 %) 4.0 6.3 H Basophils % (0.0 - 2.0 %) 0.8 0.8 Absolute Granulocytes (1.4 - 6.5 /CUMM) 6.9 H 5.5 Absolute Lymphocytes (1.2 - 3.4 /CUMM) 1.0 L 1.1 L Absolute Monocytes (0.10 - 0.60 /CUMM) 0.5 0.8 H Absolute Eosinophils (0.0 - 0.7 /CUMM) 0.4 0.5 Absolute Basophils (0.0 - 0.2 /CUMM) 0.1 0.1 03/10 0720 Chemistry Sodium (137 - 145 mmol/L) 138 Potassium (3.5 - 5.1 mmol/L) 3.8 Chloride (98 - 107 mmol/L) 100 Carbon Dioxide (22 - 30 mmol/L) 24 Anion Gap (5 - 16) 14 BUN (7 - 17 mg/dL) 69 H Creatinine (0.5 - 1.0 mg/dL) 3.2 H Estimated GFR (>60 ml/min) 15 L BUN/Creatinine Ratio (7 - 25 %) 21.6 Hematology CBC w Diff NO MAN DIFF REQ WBC (4.8 - 10.8 /CUMM) 7.5 RBC (4.20 - 5.40 /CUMM) 2.36 L Hgb (12.0 - 16.0 G/DL) 7.3 *L Hct (37 - 47 %) 22.1 L MCV (81.0 - 99.0 FL) 93.6 MCH (27.0 - 31.0 PG) 30.9 MCHC (33.0 - 37.0 G/DL) 33.0 RDW (11.5 - 14.5 %) 23.8 H Plt Count (130 - 400 /CUMM) 145 MPV (7.4 - 10.4 FL) 7.3 L Gran % (42.2 - 75.2 %) 67.2 Lymphocytes % (20.5 - 51.1 %) 16.8 L Monocytes % (1.7 - 9.3 %) 9.8 H Eosinophils % (0 - 5 %) 5.7 H Basophils % (0.0 - 2.0 %) 0.5 Absolute Granulocytes (1.4 - 6.5 /CUMM) 5.0 Absolute Lymphocytes (1.2 - 3.4 /CUMM) 1.3 Absolute Monocytes (0.10 - 0.60 /CUMM) 0.7 H Absolute Eosinophils (0.0 - 0.7 /CUMM) 0.4 Absolute Basophils (0.0 - 0.2 /CUMM) 0 Imaging/Other Studies: EXAM TYPE: US - US-RENAL/KIDNEY EXAMINATION: US RETROPERITONEAL COMPLETE (RENAL) CLINICAL INFORMATION: PHYLLIS. COMPARISON: Ultrasound of abdomen 05/25/2017 TECHNIQUE: Real-time imaging of the kidneys and bladder. Exam was performed portable. Patient was unable to decubitus. The exam is limited by body habitus and bowel gas. FINDINGS: RIGHT KIDNEY: Not clearly visualized. LEFT KIDNEY: 12 x 5.4 x 5.2 cm (SAG x AP x TRV). The kidney is normal in size, contour, and echogenicity. Renal cortical thickness is normal. No calculi or focal parenchymal lesions. No hydronephrosis. BLADDER: Unable to visualize. IMPRESSION: 1. Limited study. Unable to visualize the right kidney or the bladder. 2. Normal ultrasound of the left kidney..
[2017-07-18 15:34] VITALS: BP 118/52
[2017-07-18 16:00] VITALS: BP 116/58
--- NOTE | 2017-07-18 22:11 | PN- Gastroenterology ---
Assessment/Plan GI Assessment/Recommendations: * Cirrhosis, presumably secondary to LIAO. * Evidence of hepatic encephalopathy with asterixis and lethargy. * Chronic anemia, multifactorial (cirrhosis, vaginal bleeding, CKD, etc.) * Worsening renal function despite albumin and institution of octreotide/ midodrine; nephrology believes that there is at least a component of hepatorenal type II, although the patient has not had significant ascites. Recommendations: 1. Continue IV albumin, octreotide and midodrine 2. Low sodium diet 3. Stop propranolol and continue to hold diuretics 4. Check CBC, CMP, ammonia, INR 5.. At this point would transfer to [place] for further evaluation including liver transplant and nephrology consultations. This has been discussed with house staff, patient and . Subjective Subjective: The patient was lethargic but arousable. She is oriented. She denies nausea, abdominal pain. Objective Vital Signs and I&Os Vital Signs Date Time Temp Pulse Resp B/P B/P Pulse O2 O2 Flow FiO2 Mean Ox Delivery Rate 07/18 1600 97.4 71 16 116/58 07/18 1534 97.7 74 20 118/52 93 Room Air 07/18 1216 Room Air Room Air 07/18 1036 58 120/58 07/18 0604 98.0 51 20 122/60 93 07/17 2204 98.1 50 20 90/50 91 Room Air Intake & Output 07/18 1600 07/18 0400 07/17 1600 07/17 0400 07/16 1600 07/16 0400 Intake Total 800 250 103 319 8925 600 Output Total 1200 300 575 300 800 500 Balance -400 -50 245 180 320 100 Intake, IV 200 100 100 Intake, Oral 600 250 451 335 5520 600 Number 1 Bowel Movements Output, Urine 1200 300 575 300 800 500 Physical Exam: Lethargic, oriented. Sclera icteric. No JVD. No adenopathy. Abdomen obese, nontender. Positive bilateral pretibial edema. Positive asterixis. Current Medications: Current Medications Sig/Oleg Start time Last Medication Dose Route Stop Time Status Admin Acetaminophen 650 MG Q6P PRN 07/12 1730 AC 07/16 PO 2146 Albumin Human 25 GM Q8 07/15 2200 AC 07/18 IV 1343 Epoetin Guille 10,000 UNIT ONCE ONE 07/18 1000 DC 07/18 SC 07/18 1001 1036 Epoetin Guille 2,000 UNIT ONCE ONE 07/18 1000 DC 07/18 SC 07/18 1001 1037 Escitalopram Oxalate 20 MG DAILY 07/12 1000 AC 07/18 PO 1035 Famotidine 20 MG DAILY 07/18 1000 AC 07/18 PO 1036 Lorazepam 0.5 MG AT BEDTIME 07/12 2200 AC 07/17 PO 07/19 2159 2157 Melatonin 3 MG AT BEDTIME 07/12 2200 AC 07/17 PO 2156 Midodrine 10 MG Q8 07/16 1400 AC 07/18 PO 1343 Nystatin 1 WOODROW BID 07/15 1203 AC 07/18 TOP 1037 Octreotide Acetate 200 MCG Q8 07/16 1400 AC 07/18 SC 1341 Patient Medication 1 ED ONE ONE 07/18 1445 DC Teaching ED 07/18 1446 Propranolol HCl 10 MG BID 07/13 1000 AC 07/18 PO 1036 Rifaximin 550 MG BID 07/12 2200 AC 07/18 PO 1035 Triamcinolone 1 WOODROW TID 07/16 1000 AC 07/18 Acetonide TOP 1700 Results Pertinent Lab Results: Laboratory Tests 07/18 07/18 07/18 1513 1513 0917 Chemistry Sodium (137 - 145 mmol/L) 136 L Potassium (3.5 - 5.1 mmol/L) 4.3 Chloride (98 - 107 mmol/L) 103 Carbon Dioxide (22 - 30 mmol/L) 19 L Anion Gap (5 - 16) 14 BUN (7 - 17 mg/dL) 71 H Creatinine (0.5 - 1.0 mg/dL) 3.6 H Estimated GFR (>60 ml/min) 13 L BUN/Creatinine Ratio (7 - 25 %) 19.7 Hematology CBC w Diff NO MAN DIFF REQ WBC (4.8 - 10.8 /CUMM) 8.8 RBC (4.20 - 5.40 /CUMM) 2.45 L Hgb (12.0 - 16.0 G/DL) 7.5 L Hct (37 - 47 %) 23.0 L MCV (81.0 - 99.0 FL) 93.8 MCH (27.0 - 31.0 PG) 30.5 MCHC (33.0 - 37.0 G/DL) 32.5 L RDW (11.5 - 14.5 %) 22.5 H Plt Count (130 - 400 /CUMM) 186 MPV (7.4 - 10.4 FL) 7.3 L Gran % (42.2 - 75.2 %) 78.1 H Lymphocytes % (20.5 - 51.1 %) 11.5 L Monocytes % (1.7 - 9.3 %) 5.6 Eosinophils % (0 - 5 %) 4.0 Basophils % (0.0 - 2.0 %) 0.8 Absolute Granulocytes (1.4 - 6.5 /CUMM) 6.9 H Absolute Lymphocytes (1.2 - 3.4 /CUMM) 1.0 L Absolute Monocytes (0.10 - 0.60 /CUMM) 0.5 Absolute Eosinophils (0.0 - 0.7 /CUMM) 0.4 Absolute Basophils (0.0 - 0.2 /CUMM) 0.1 Urines Urine Color Cancelled Urine Clarity Cancelled Urine pH Cancelled Ur Specific [place] Cancelled Urine Protein Cancelled Urine Ketones Cancelled Urine Nitrite Cancelled Urine Bilirubin Cancelled Urine Urobilinogen Cancelled Ur Leukocyte Esterase Cancelled Ur Microscopic Cancelled Urine Hemoglobin Cancelled Ur Random Creatinine Cancelled Ur Random Sodium Cancelled Ur Random Potassium Cancelled Fraction Sodium Excret Cancelled Urine Glucose Cancelled 07/17 07/16 0712 0720 Chemistry Sodium (137 - 145 mmol/L) 137 138 Potassium (3.5 - 5.1 mmol/L) 4.0 3.8 Chloride (98 - 107 mmol/L) 102 100 Carbon Dioxide (22 - 30 mmol/L) 24 24 Anion Gap (5 - 16) 12 14 BUN (7 - 17 mg/dL) 68 H 69 H Creatinine (0.5 - 1.0 mg/dL) 3.5 H 3.2 H Estimated GFR (>60 ml/min) 13 L 15 L BUN/Creatinine Ratio (7 - 25 %) 19.4 21.6 Hematology CBC w Diff NO MAN DIFF REQ NO MAN DIFF REQ WBC (4.8 - 10.8 /CUMM) 7.9 7.5 RBC (4.20 - 5.40 /CUMM) 2.40 L 2.36 L Hgb (12.0 - 16.0 G/DL) 7.5 L 7.3 *L Hct (37 - 47 %) 22.7 L 22.1 L MCV (81.0 - 99.0 FL) 94.6 93.6 MCH (27.0 - 31.0 PG) 31.2 H 30.9 MCHC (33.0 - 37.0 G/DL) 33.0 33.0 RDW (11.5 - 14.5 %) 24.3 H 23.8 H Plt Count (130 - 400 /CUMM) 163 145 MPV (7.4 - 10.4 FL) 7.3 L 7.3 L Gran % (42.2 - 75.2 %) 69.7 67.2 Lymphocytes % (20.5 - 51.1 %) 13.6 L 16.8 L Monocytes % (1.7 - 9.3 %) 9.6 H 9.8 H Eosinophils % (0 - 5 %) 6.3 H 5.7 H Basophils % (0.0 - 2.0 %) 0.8 0.5 Absolute Granulocytes (1.4 - 6.5 /CUMM) 5.5 5.0 Absolute Lymphocytes (1.2 - 3.4 /CUMM) 1.1 L 1.3 Absolute Monocytes (0.10 - 0.60 /CUMM) 0.8 H 0.7 H Absolute Eosinophils (0.0 - 0.7 /CUMM) 0.5 0.4 Absolute Basophils (0.0 - 0.2 /CUMM) 0.1 0
[2017-07-18 22:23] VITALS: BP 110/60
--- NOTE | 2017-07-19 06:48 | PN- Housestaff ---
Oniel GAMBINO,Phil 07/19/17 0648: Subjective Follow-up For: PHYLLIS on CKD Hepatorenal syndrome hepatic encephalopathy acute on chronic anemia Subjective: Patient was seen and examined at bedside. She is lethargic and confused compared to yesterday. She was having difficulty keeping her eyes open during the conversation. Per her the patient slept most of the night and has been able to get out of bed to use the commode. Patient currently has no complaints. Review of Systems Constitutional: Denies: chills, fever. EENTM: Reports: no symptoms. Cardiovascular: Reports: no symptoms. Respiratory: Reports: no symptoms. Gastrointestinal: Reports: no symptoms. Genitourinary: Reports: no symptoms. Musculoskeletal: Reports: no symptoms. Skin: Reports: no symptoms. Objective Last 24 Hrs of Vital Signs/I&O Vital Signs Date Time Temp Pulse Resp B/P B/P Pulse O2 O2 Flow FiO2 Mean Ox Delivery Rate 07/19 0000 Room Air 07/18 2233 76 110/60 07/18 2223 98.1 76 18 110/60 92 07/18 1600 97.4 71 16 116/58 07/18 1534 97.7 74 20 118/52 93 Room Air 07/18 1216 Room Air Room Air 07/18 1036 58 120/58 Intake & Output 07/19 0800 07/19 0000 07/18 1600 Intake Total 0 240 460 Output Total 400 325 725 Balance -400 -85 -265 Intake, IV 100 Intake, Oral 0 240 360 Output, Urine 400 325 725 Physical Exam General Appearance: Cooperative, No Acute Distress, Oriented only to person, unable to give the date, currenty president or our location Skin Temp/Moisture Exam: Warm/Dry HEENT: scleral icterus Cardiovascular: Regular Rate, Normal S1, Normal S2 Lungs: Clear to Auscultation Abdomen: Normal Bowel Sounds, Soft, No Tenderness, lower abdomen with pitting edema Neurological: asterixis present Extremities: 3+ pitting edema of the LEs, extending to the abdomen Current Medications: Current Medications Sig/Oleg Start time Last Medication Dose Route Stop Time Status Admin Acetaminophen 650 MG Q6P PRN 07/12 1730 AC 07/16 PO 2146 Albumin Human 25 GM Q8 07/15 2200 AC 07/19 IV 0530 Epoetin Guille 10,000 UNIT ONCE ONE 07/18 1000 DC 07/18 SC 07/18 1001 1036 Epoetin Guille 2,000 UNIT ONCE ONE 07/18 1000 DC 07/18 SC 07/18 1001 1037 Escitalopram Oxalate 20 MG DAILY 07/12 1000 AC 07/18 PO 1035 Famotidine 20 MG DAILY 07/18 1000 AC 07/18 PO 1036 Lorazepam 0.5 MG AT BEDTIME 07/12 2200 AC 07/18 PO 07/19 2159 2232 Melatonin 3 MG AT BEDTIME 07/12 2200 AC 07/18 PO 2232 Midodrine 10 MG Q8 07/16 1400 AC 07/19 PO 0530 Nystatin 1 WOODROW BID 07/15 1203 AC 07/18 TOP 2233 Octreotide Acetate 200 MCG Q8 07/16 1400 AC 07/19 SC 0530 Patient Medication 1 ED ONE ONE 07/18 1445 DC Teaching ED 07/18 1446 Propranolol HCl 10 MG BID 07/13 1000 DC 07/18 PO 2233 Rifaximin 550 MG BID 07/12 2200 AC 07/18 PO 2232 Triamcinolone 1 WOODROW TID 07/16 1000 AC 07/18 Acetonide TOP 2232 Last 24 Hrs of Lab/Srini Results Last 24 Hrs of Labs/Mics: Laboratory Tests 07/19 07/19 07/19 0958 0915 0725 Chemistry Sodium (137 - 145 mmol/L) 141 Potassium (3.5 - 5.1 mmol/L) 4.0 Chloride (98 - 107 mmol/L) 103 Carbon Dioxide (22 - 30 mmol/L) 22 Anion Gap (5 - 16) 17 H BUN (7 - 17 mg/dL) 74 H Creatinine (0.5 - 1.0 mg/dL) 4.0 H Estimated GFR (>60 ml/min) 11 L BUN/Creatinine Ratio (7 - 25 %) 18.5 Iron Pending TIBC Pending Ferritin Pending Total Bilirubin (0.2 - 1.3 mg/dL) 9.4 H Direct Bilirubin (< 0.4 mg/dL) 5.5 H AST (14 - 36 U/L) 10 L ALT (9 - 52 U/L) 17 Alkaline Phosphatase (<127 U/L) 32 Ammonia (9 - 30 umol/L) 59 H Total Protein (6.3 - 8.2 g/dL) 6.7 Albumin (3.5 - 5.0 g/dL) 4.0 Coagulation PT (9.4 - 12.5 SEC) 21.6 H INR (0.90 - 1.19) 1.97 H Hematology CBC w Diff NO MAN DIFF REQ WBC (4.8 - 10.8 /CUMM) 9.1 RBC (4.20 - 5.40 /CUMM) 2.19 L Hgb (12.0 - 16.0 G/DL) 6.9 *L Hct (37 - 47 %) 20.7 L MCV (81.0 - 99.0 FL) 94.4 MCH (27.0 - 31.0 PG) 31.3 H MCHC (33.0 - 37.0 G/DL) 33.1 RDW (11.5 - 14.5 %) 23.7 H Plt Count (130 - 400 /CUMM) 190 MPV (7.4 - 10.4 FL) 6.7 L Gran % (42.2 - 75.2 %) 75.5 H Lymphocytes % (20.5 - 51.1 %) 13.7 L Monocytes % (1.7 - 9.3 %) 6.6 Eosinophils % (0 - 5 %) 3.6 Basophils % (0.0 - 2.0 %) 0.6 Absolute Granulocytes (1.4 - 6.5 /CUMM) 6.9 H Absolute Lymphocytes (1.2 - 3.4 /CUMM) 1.2 Absolute Monocytes (0.10 - 0.60 /CUMM) 0.6 Absolute Eosinophils (0.0 - 0.7 /CUMM) 0.3 Absolute Basophils (0.0 - 0.2 /CUMM) 0.1 Urines Ur Random Creatinine Cancelled Ur Random Sodium Cancelled Ur Random Potassium Cancelled Fraction Sodium Excret Cancelled 07/18 07/18 1513 1513 Urines Urine Color Cancelled Urine Clarity Cancelled Urine pH Cancelled Ur Specific [place] Cancelled Urine Protein Cancelled Urine Ketones Cancelled Urine Nitrite Cancelled Urine Bilirubin Cancelled Urine Urobilinogen Cancelled Ur Leukocyte Esterase Cancelled Ur Microscopic Cancelled Urine Hemoglobin Cancelled Ur Random Creatinine Cancelled Ur Random Sodium Cancelled Ur Random Potassium Cancelled Fraction Sodium Excret Cancelled Urine Glucose Cancelled Assessment/Plan Assessment: Patient is a 61-year-old female with a PMH significant for hepatorenal syndrome for which she was admitted to several months ago, postmenopausal bleeding, anemia, HTN, anxiety, depresison, fatty liver disease, questionable hypothyroid, hemmorrhoids, who presents to complaining of weakness, fatigue and chills. She was found to be anemic but not profoundly below her baseline in the ED, and she has hyponatremia and hyperkalemia. Renal US showed a normal L kidney but the R kidney and bladder were not visualized. Patient to go for Proline access tomorrow AM. She has difficult access and is expected to have a prolonged stay with possibility of transfer #PHYLLIS on CKD; HRS Renal function is continues to worsen despite albumin supplementation and with the addition of octreotide and midodrine. -transfer to [place] for further work-up of liver disease and need for transplant - Continue IV albumin 25 g q 8 Hrs - continue midodrine and octreotide -restart lactulose - MELD score is 36 - Continue to hold diuretics and avoid nephrotoxic medications - GI and nephro recommendations appreciated - Continue fluid restriction #[place] Anemia, acute on chornic likely secondary to acute blood loss with recent vagnial bleeding Patientcontinues to have mild vaginal bleeding today. acute drop in H/H today, will transfuse 1 unit PRBCs -Epogen 1200 units given 07/18/17, next dose on 07/25/17 -venofir dosing complete -Continue to monitor BEP - will recommend outpatient Life Insurance Salesperson consult as outpatient #LE swelling with small weeping wounds - wound care consult placed, will follow up reccomendations Diet: heart healthy, NPO at midnight DVT ppx: Patient not receiving any DVT prophylaxis due to discomfort of the lower extremities with else and vaginal bleeding with acute on chronic blood loss anemia. These risks were discussed with the patient and frequent ambulation was encouraged. Code status: Full Code Problem List: 1. Hepatorenal syndrome 2. Acute kidney injury superimposed on chronic kidney disease 3. Hepatic encephalopathy Pain Ratin Pain Location: none Pain Goal: Remain pain free Pain Plan: pain pathway Tomorrow's Labs & Rationales: none Discharge Plan Discharge Disposition: transfer to another hosp Stable for Discharge? Yes Anticipated Discharge (Day): today If Discharged Today/In 24 Hrs: W-10/discharge paper done, DC summary done, CMR done Andrés Jay MD 07/19/17 1338: Attending MD Review Statement Attending Statement Attending MD Statement: examined this patient, discuss w/resident/PA/TERRITORY REPRESENTATIVE, agreed w/resident/PA/TERRITORY REPRESENTATIVE, reviewed EMR data (avail) Attending Assessment/Plan: 61F PMH alcohol/LIAO cirrhosis, HTN, anxiety admitted with fatigue secondary to PHYLLIS, due to likely hepatorenal syndrome, with chronic anemia requiring transfusion of 1 pRBC. Patient continues to deteriorate. She developed asterixis yesterday afternoon and her mental status has been progressively worsening. She is now A&Ox1 and lethargic. Her renal and liver function continue to decline. 1. Hepatorenal syndrome 2. Alcoholic cirrhosis 3. Chronic symptomatic anemia secondary to cirrhosis Plan - Will transfer to [facility] under hospitalist service with Dr. Worley, with consult from liver team. Spoke directly to Dr. Phil Benito who will see patient. - Follow GI and nephrology recommendations - Transfuse to Hgb > 7
[2017-07-19 06:59] VITALS: BP 110/66
[2017-07-19 08:21] LABS: PT 21.6 SEC (9.4-12.5)
[2017-07-19 08:59] LABS: ABSOLUTE BASOPHIL COUNT 0.1 /CUMM (0.0-0.2); ABSOLUTE EOSINOPHIL COUNT 0.3 /CUMM (0.0-0.7); ABSOLUTE GRANULOCYTE CT 6.9 /CUMM (1.4-6.5); ABSOLUTE LYMPH COUNT 1.2 /CUMM (1.2-3.4); ABSOLUTE MONOCYTE COUNT 0.6 /CUMM (0.10-0.60); BASOPHIL % 0.6 % (0.0-2.0); EOSINOPHIL % 3.6 % (0-5); GRANULOCYTE % 75.5 % (42.2-75.2); MEAN CORPUSCULAR HGB 31.3 PG (27.0-31.0); MEAN CORPUSCULAR HGB CONC 33.1 G/DL (33.0-37.0); MEAN CORPUSCULAR VOLUME 94.4 FL (81.0-99.0); MEAN PLATELET VOLUME 6.7 FL (7.4-10.4); PLATELET COUNT 190 /CUMM (130-400); RBC DISTRIBUTION WIDTH 23.7 % (11.5-14.5); RED BLOOD CELL CT 2.19 /CUMM (4.20-5.40); WHITE BLOOD CELL COUNT 9.1 /CUMM (4.8-10.8)
[2017-07-19 09:33] LABS: HEMATOCRIT 20.7 % (37-47)
[2017-07-19 09:37] VITALS: BP 110/66
--- NOTE | 2017-07-19 09:50 | Discharge Summary ---
Visit Information Visit Dates Admission Date: 07/12/17 Discharge Date: 07/19/17 Hospital Course Course Attending Physician: Andrés Jay MD [facility]: Patient is a 61-year-old female with a PMH significant for hepatorenal syndrome for which she was admitted to several months ago, postmenopausal bleeding, anemia of chronic disease, HTN, anxiety, depresison, fatty liver disease/ Cirrhosis from LIAO vs alcohol, signignificant alcohol history, questionable hypothyroidism and hemorrhoids/rectal fissures, who presented to complaining of weakness, fatigue and chills. She was found to be anemic but not profoundly below her baseline in the ED, and she had hyponatremia and hyperkalemia. Her creatinine was also above her baseline. Renal US showed a normal L kidney but the R kidney and bladder were not visualized a small right pleural effusion and Trace ascites. Laboratory Tests 07/12/178: Anion Gap 10, Estimated GFR 16 L, BUN/Creatinine Ratio 24.3 Problem list 1. Possible Hepatorenal Syndrome (type 2) 2. Acute blood loss/iron deficient anemia 3. Anemia of chronic disease-multifactorial (cirrhosis, CKD) 4. Post-menopausal vaginal bleeding 5. Cirrhosis 2/2 to LIAO vs Alcohol 6. Hepatic Encephalopathy 7. Stage IV CKD-2/2 incompletely recovered PHYLLIS in the setting of ATN from a GI Bleed Plan #Possible Hepatorenal Syndrome (type 2) Patient was started on IV albumin and low sodium diet, diuretics were held. Propranolol was also eventually held. Renal function continued to worsen so octreotide and midodrine were started. C3 and C4 low likely 2/2 liver disease rather than involvement in a glomerular process. Plan is for transfer to [facility] for further evaluation and workup for possible liver transplant. #Acute Blood loss/Iron deficient anemia Due to post-menopausal bleed. Folate and Vit B12 adequate. Repleted with IV fluids, IV venofer and weekly epogen. She was transfused a total of 2 units of blood during this admission, last transfusion was today for a Hb of 6.9. Post transfusion HB is pending. She continues to have vaginal bleeding with clots intermittently, will need OBGYN evaluation. #Hepatic Encephalopathy Ammonia is 59 today. Patient is on lactulose and rifaximin. Monitor LFTs and ammonia. #Stage IV CKD Worsening renal function due to HRS. Continue to monitor. Complications: none Allergies: Coded Allergies: Sulfa (Sulfonamide Antibiotics) (Intermediate, HIVES 02/25/17) latex (Intermediate, HIVES 02/25/17) Significant Procedures: none Pertinent Lab Results: Laboratory Tests 07/19 07/19 07/19 0958 0915 0725 Chemistry Sodium (137 - 145 mmol/L) 141 Potassium (3.5 - 5.1 mmol/L) 4.0 Chloride (98 - 107 mmol/L) 103 Carbon Dioxide (22 - 30 mmol/L) 22 Anion Gap (5 - 16) 17 H BUN (7 - 17 mg/dL) 74 H Creatinine (0.5 - 1.0 mg/dL) 4.0 H Estimated GFR (>60 ml/min) 11 L BUN/Creatinine Ratio (7 - 25 %) 18.5 Iron (37 - 170 ug/dL) 115 TIBC (265 - 497 ug/dL) Pending Ferritin (11.1 - 264 ng/mL) Pending Total Bilirubin (0.2 - 1.3 mg/dL) 9.4 H Direct Bilirubin (< 0.4 mg/dL) 5.5 H AST (14 - 36 U/L) 10 L ALT (9 - 52 U/L) 17 Alkaline Phosphatase (<127 U/L) 32 Ammonia (9 - 30 umol/L) 59 H Total Protein (6.3 - 8.2 g/dL) 6.7 Albumin (3.5 - 5.0 g/dL) 4.0 Coagulation PT (9.4 - 12.5 SEC) 21.6 H INR (0.90 - 1.19) 1.97 H Hematology CBC w Diff NO MAN DIFF REQ WBC (4.8 - 10.8 /CUMM) 9.1 RBC (4.20 - 5.40 /CUMM) 2.19 L Hgb (12.0 - 16.0 G/DL) 6.9 *L Hct (37 - 47 %) 20.7 L MCV (81.0 - 99.0 FL) 94.4 MCH (27.0 - 31.0 PG) 31.3 H MCHC (33.0 - 37.0 G/DL) 33.1 RDW (11.5 - 14.5 %) 23.7 H Plt Count (130 - 400 /CUMM) 190 MPV (7.4 - 10.4 FL) 6.7 L Gran % (42.2 - 75.2 %) 75.5 H Lymphocytes % (20.5 - 51.1 %) 13.7 L Monocytes % (1.7 - 9.3 %) 6.6 Eosinophils % (0 - 5 %) 3.6 Basophils % (0.0 - 2.0 %) 0.6 Absolute Granulocytes (1.4 - 6.5 /CUMM) 6.9 H Absolute Lymphocytes (1.2 - 3.4 /CUMM) 1.2 Absolute Monocytes (0.10 - 0.60 /CUMM) 0.6 Absolute Eosinophils (0.0 - 0.7 /CUMM) 0.3 Absolute Basophils (0.0 - 0.2 /CUMM) 0.1 Urines Ur Random Creatinine Cancelled Ur Random Sodium Cancelled Ur Random Potassium Cancelled Fraction Sodium Excret Cancelled Disposition Summary Disposition Principal Diagnosis: Possible Hepatorenal Syndrome (type 2) Acute blood loss/iron deficient anemia Anemia of chronic disease-multifactorial(cirrhosis, CKD) Post-menopausal vaginal bleeding Additional Diagnosis: Cirrhosis 2/2 to LIAO vs Alcohol Hepatic Encephalopathy Stage IV CKD Discharge Disposition: other general hospital Discharge Instructions General Discharge Information Code Status: Full Code Patient's Diet: Renal dialysis diet Patient's Activity: As tolerated Follow-Up Instructions/Appts: Please follow up with your PCP after discharge Please follow up with your Onsite Health Coach after discharge Please follow up with your Installation Coordinator after discharge Medications at Discharge Discharge Medications: Stop taking the following medications: Propranolol HCl (Propranolol HCl) 10 MG TABLET ORAL TWICE DAILY Qty = 90 Furosemide (Furosemide) 20 MG TABLET ORAL TWICE DAILY Qty = 120 Spironolactone (Spironolactone) 50 MG TABLET ORAL DAILY Qty = 30 Continue taking these medications: Rifaximin (Xifaxan) 550 MG TABLET 1 Tablet ORAL TWICE DAILY Qty = 90 Comments: Last Taken: 07/19/17 Time: 10:00 AM Escitalopram Oxalate (Escitalopram Oxalate) 10 MG TABLET 1 Tablet ORAL DAILY Qty = 90 Comments: Last Taken: 07/19/17 Time: 10:00 AM Lactulose (Lactulose) 10 GRAM/15 ML SOLUTION 30 Milliliters ORAL TWICE DAILY Qty = 1419 Comments: Last Taken: 07/19/17 Time: 12:00 PM Start taking the following new medications: Midodrine HCl (Midodrine HCl) 2.5 MG TABLET 10 Milligram ORAL EVERY 8 HOURS Qty = 30 No Refills Comments: Last Taken: 07/19/17 Time: 6:00 AM Albumin Human (Alburx) 25 % VIAL 25 Gram INTRAVEN EVERY 8 HOURS Qty = 1 No Refills Comments: Last Taken: 07/19/17 Time: 6:00 AM Famotidine (Famotidine) 20 MG TABLET 20 Milligram ORAL DAILY Qty = 30 No Refills Comments: Last Taken: 07/19/17 Time: 10:00 AM Triamcinolone Acetonide (Triamcinolone Acetonide) 0.1 % OINT...G. 1 Application On the skin THREE TIMES DAILY Qty = 1 No Refills Comments: Last Taken: 07/19/17 Time: 10:00 AM Octreotide Acetate (Sandostatin) 50 MCG/ML AMPUL 200 Microgram Inject into fatty tissue EVERY 8 HOURS Qty = 1 No Refills Comments: Last Taken: 07/19/17 Time: 10:00 AM Copies To: Lana Knight DO Last Taken: 07/19/17 Time: 6:00 AM Albumin Human (Alburx) 25 % VIAL 25 Gram INTRAVEN EVERY 8 HOURS Qty = 1 No Refills Comments: Last Taken: 07/19/17 Time: 6:00 AM Famotidine (Famotidine) 20 MG TABLET 20 Milligram ORAL DAILY Qty = 30 No Refills Comments: Last Taken: 07/19/17 Time: 10:00 AM Triamcinolone Acetonide (Triamcinolone Acetonide) 0.1 % OINT...G. 1 Application On the skin THREE TIMES DAILY Qty = 1 No Refills Comments: Last Taken: 07/19/17 Time: 10:00 AM Octreotide Acetate (Sandostatin) 50 MCG/ML AMPUL 200 Microgram Inject into fatty tissue EVERY 8 HOURS Qty = 1 No Refills Comments: Last Taken: 07/19/17 Time: 10:00 AM Copies To: Lana Knight DO
[2017-07-19 10:17] VITALS: BP 110/66
[2017-07-19] MEDS ORDERED: ALBURX50 ML IV (10:29)
[2017-07-19] MEDS ORDERED: SANDOSTATI50 MCG/1 M SC (10:29)
[2017-07-19] MEDS ORDERED: FAMOTIDINE20 M1 PO (10:29)
[2017-07-19] MEDS ORDERED: MIDODRINE HCL2.5 M1 PO (10:29)
[2017-07-19] MEDS ORDERED: TRIAMCINOLONE A15 G3 TOP (10:29)
--- NOTE | 2017-07-19 10:33 | Patient Discharge Instructions ---
Discharge Instructions General Discharge Information You were seen/treated for: acute kidney injury due to hepatorenal syndrome Acute Coronary Syndrome Inclusion Criteria At DC or during hospital stay patient has or had the following: ACS DIAGNOSIS No Discharge Core Measures Meds if any: Prescribed or Continued at Discharge Meds if any: NOT Prescribed or Continued at Discharge Congestive Heart Failure Inclusion Criteria At DC or during hospital stay patient has or had the following: CHF DIAGNOSIS No Discharge Core Measures Meds if any: Prescribed or Continued at Discharge Meds if any: NOT Prescribed or Continued at Discharge Cerebrovascular accident Inclusion Criteria At DC or during hospital stay patient has or had the following: CVA/TIA Diagnosis No Discharge Core Measures Meds if any: Prescribed or Continued at Discharge Meds if any: NOT Prescribed or Continued at Discharge Venous thromboembolism Inclusion Criteria VTE Diagnosis No Discharge Core Measures - Per Current guidelines, there needs to be overlap - treatment for the first 5 days of Warfarin therapy. - If discharged on Warfarin prior to 5 days of - overlap therapy, the patient will need to be - assessed for post discharge needs including - *Post discharge parental anticoagulation - *Warfarin and/or parental anticoagulation education - *Follow up date to check INR post discharge Meds if any: Prescribed or Continued at Discharge Note: Overlap Therapy is Warfarin and Anticoagulant Meds if any: NOT Prescribed or Continued at Discharge
[2017-07-19 12:00] VITALS: BP 111/63
[2017-07-19 12:15] VITALS: BP 116/63
[2017-07-19 14:45] VITALS: BP 118/62
--- NOTE | 2017-07-19 14:51 | PN- Nephrology ---
Assessment/Plan Nephrology Assessment: Stage IV CKD - best SCr was 1.8 in Apr 2017 - 06/10 incompletely recovered PHYLLIS in the setting of ATN from a GI Bleed. Should note that there was a documented SCr of 1.2 in Feb 2017. In terms of work-up for a liver transplant, there may need to be consideration for a renal transplant but would defer to the team at [place]. 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 She has been started on therapy but continues to worsen along with her LFT's. Getting transferred to [place] for further work-up. Anemia - Getting 1U PRBC today. Also getting course of IV iron and Epogen. Suggestion: -Cont MOA until transfer to [facility] [place] -Cont 1g course of IV iron along with weekly Epogen; Agree with 1U PRBC given today -Will contact transplant Nephrology team at [facility] to give them a heads up Please call [phone] with ?'s Subjective Subjective: Noted to be more lethargic Renal and Liver function worsening Planning transfer to [facility] Objective Vital Signs and I&Os Vital Signs Date Time Temp Pulse Resp B/P B/P Pulse O2 O2 Flow FiO2 Mean Ox Delivery Rate 07/19 1017 97.6 75 20 110/66 07/19 0937 97.6 75 20 110/66 07/19 0800 93 Room Air Room Air 07/19 0659 97.6 75 20 110/66 91 Room Air 07/19 0000 Room Air 07/18 2233 76 110/60 07/18 2223 98.1 76 18 110/60 92 07/18 1600 97.4 71 16 116/58 07/18 1534 97.7 74 20 118/52 93 Room Air Intake & Output 07/19 1600 07/19 0400 07/18 1600 07/18 0400 07/17 1600 07/17 0400 Intake Total 710 240 800 250 820 480 Output Total 161 309 4351 300 575 300 Balance 210 -285 -400 -50 245 180 Intake, Blood 350 Product Intake, IV 200 100 Intake, Oral 360 240 600 250 720 480 Number 1 1 Bowel Movements Output, Urine 536 683 4417 300 575 300 Physical Exam: Gen - jaundiced, drowsy HEENT - icteric sclera CV - RRR, no m/r/g Chest - clear anteriorly Abd - soft, NTND Ext - ++edema Neuro - drowsy but conversive Current Medications: Current Medications Sig/Oleg Start time Last Medication Dose Route Stop Time Status Admin Acetaminophen 650 MG Q6P PRN 07/12 1730 AC 07/16 PO 2146 Albumin Human 25 GM Q8 07/15 2200 AC 07/19 IV 0530 Escitalopram Oxalate 20 MG DAILY 07/12 1000 AC 07/19 PO 1004 Famotidine 20 MG DAILY 07/18 1000 AC 07/19 PO 1005 Iron Sucrose 200 MG 0730 07/19 0730 DC Sodium Chloride 100 ML IV 07/19 0746 Lactulose 20 GM BID 07/19 1031 AC 07/19 PO 1150 Lorazepam 0.5 MG AT BEDTIME 07/12 2200 AC 07/18 PO 07/19 2159 2232 Melatonin 3 MG AT BEDTIME 07/12 2200 AC 07/18 PO 2232 Midodrine 10 MG Q8 07/16 1400 AC 07/19 PO 0530 Nystatin 1 WOODROW BID 07/15 1203 AC 07/19 TOP 1006 Octreotide Acetate 200 MCG Q8 07/16 1400 AC 07/19 SC 0530 Patient Medication 1 ED ONE ONE 07/18 1445 DC Teaching ED 07/18 1446 Propranolol HCl 10 MG BID 07/13 1000 DC 07/18 PO 2233 Rifaximin 550 MG BID 07/12 2200 AC 07/19 PO 1005 Triamcinolone 1 WOODROW TID 07/16 1000 AC 07/19 Acetonide TOP 1004 Results Pertinent Lab Results: Laboratory Tests 07/19 07/19 07/19 0958 0915 0725 Chemistry Sodium (137 - 145 mmol/L) 141 Potassium (3.5 - 5.1 mmol/L) 4.0 Chloride (98 - 107 mmol/L) 103 Carbon Dioxide (22 - 30 mmol/L) 22 Anion Gap (5 - 16) 17 H BUN (7 - 17 mg/dL) 74 H Creatinine (0.5 - 1.0 mg/dL) 4.0 H Estimated GFR (>60 ml/min) 11 L BUN/Creatinine Ratio (7 - 25 %) 18.5 Iron (37 - 170 ug/dL) 115 TIBC (265 - 497 ug/dL) 197 L Ferritin (11.1 - 264 ng/mL) 268.0 H Total Bilirubin (0.2 - 1.3 mg/dL) 9.4 H Direct Bilirubin (< 0.4 mg/dL) 5.5 H AST (14 - 36 U/L) 10 L ALT (9 - 52 U/L) 17 Alkaline Phosphatase (<127 U/L) 32 Ammonia (9 - 30 umol/L) 59 H Total Protein (6.3 - 8.2 g/dL) 6.7 Albumin (3.5 - 5.0 g/dL) 4.0 Coagulation PT (9.4 - 12.5 SEC) 21.6 H INR (0.90 - 1.19) 1.97 H Hematology CBC w Diff NO MAN DIFF REQ WBC (4.8 - 10.8 /CUMM) 9.1 RBC (4.20 - 5.40 /CUMM) 2.19 L Hgb (12.0 - 16.0 G/DL) 6.9 *L Hct (37 - 47 %) 20.7 L MCV (81.0 - 99.0 FL) 94.4 MCH (27.0 - 31.0 PG) 31.3 H MCHC (33.0 - 37.0 G/DL) 33.1 RDW (11.5 - 14.5 %) 23.7 H Plt Count (130 - 400 /CUMM) 190 MPV (7.4 - 10.4 FL) 6.7 L Gran % (42.2 - 75.2 %) 75.5 H Lymphocytes % (20.5 - 51.1 %) 13.7 L Monocytes % (1.7 - 9.3 %) 6.6 Eosinophils % (0 - 5 %) 3.6 Basophils % (0.0 - 2.0 %) 0.6 Absolute Granulocytes (1.4 - 6.5 /CUMM) 6.9 H Absolute Lymphocytes (1.2 - 3.4 /CUMM) 1.2 Absolute Monocytes (0.10 - 0.60 /CUMM) 0.6 Absolute Eosinophils (0.0 - 0.7 /CUMM) 0.3 Absolute Basophils (0.0 - 0.2 /CUMM) 0.1 Urines Ur Random Creatinine Cancelled Ur Random Sodium Cancelled Ur Random Potassium Cancelled Fraction Sodium Excret Cancelled 07/18 07/18 07/18 1513 1513 UNK Chemistry Ammonia Cancelled Urines Urine Color Cancelled Urine Clarity Cancelled Urine pH Cancelled Ur Specific Joanna Cancelled Urine Protein Cancelled Urine Ketones Cancelled Urine Nitrite Cancelled Urine Bilirubin Cancelled Urine Urobilinogen Cancelled Ur Leukocyte Esterase Cancelled Ur Microscopic Cancelled Urine Hemoglobin Cancelled Ur Random Creatinine Cancelled Ur Random Sodium Cancelled Ur Random Potassium Cancelled Fraction Sodium Excret Cancelled Urine Glucose Cancelled 07/18 07/17 6559 0689 Chemistry Sodium (137 - 145 mmol/L) 136 L 137 Potassium (3.5 - 5.1 mmol/L) 4.3 4.0 Chloride (98 - 107 mmol/L) 103 102 Carbon Dioxide (22 - 30 mmol/L) 19 L 24 Anion Gap (5 - 16) 14 12 BUN (7 - 17 mg/dL) 71 H 68 H Creatinine (0.5 - 1.0 mg/dL) 3.6 H 3.5 H Estimated GFR (>60 ml/min) 13 L 13 L BUN/Creatinine Ratio (7 - 25 %) 19.7 19.4 Hematology CBC w Diff NO MAN DIFF REQ NO MAN DIFF REQ WBC (4.8 - 10.8 /CUMM) 8.8 7.9 RBC (4.20 - 5.40 /CUMM) 2.45 L 2.40 L Hgb (12.0 - 16.0 G/DL) 7.5 L 7.5 L Hct (37 - 47 %) 23.0 L 22.7 L MCV (81.0 - 99.0 FL) 93.8 94.6 MCH (27.0 - 31.0 PG) 30.5 31.2 H MCHC (33.0 - 37.0 G/DL) 32.5 L 33.0 RDW (11.5 - 14.5 %) 22.5 H 24.3 H Plt Count (130 - 400 /CUMM) 186 163 MPV (7.4 - 10.4 FL) 7.3 L 7.3 L Gran % (42.2 - 75.2 %) 78.1 H 69.7 Lymphocytes % (20.5 - 51.1 %) 11.5 L 13.6 L Monocytes % (1.7 - 9.3 %) 5.6 9.6 H Eosinophils % (0 - 5 %) 4.0 6.3 H Basophils % (0.0 - 2.0 %) 0.8 0.8 Absolute Granulocytes (1.4 - 6.5 /CUMM) 6.9 H 5.5 Absolute Lymphocytes (1.2 - 3.4 /CUMM) 1.0 L 1.1 L Absolute Monocytes (0.10 - 0.60 /CUMM) 0.5 0.8 H Absolute Eosinophils (0.0 - 0.7 /CUMM) 0.4 0.5 Absolute Basophils (0.0 - 0.2 /CUMM) 0.1 0.1 Imaging/Other Studies: EXAM TYPE: US - US-RENAL/KIDNEY EXAMINATION: US RETROPERITONEAL COMPLETE (RENAL) CLINICAL INFORMATION: PHYLLIS. COMPARISON: Ultrasound of abdomen 05/25/2017 TECHNIQUE: Real-time imaging of the kidneys and bladder. Exam was performed portable. Patient was unable to decubitus. The exam is limited by body habitus and bowel gas. FINDINGS: RIGHT KIDNEY: Not clearly visualized. LEFT KIDNEY: 12 x 5.4 x 5.2 cm (SAG x AP x TRV). The kidney is normal in size, contour, and echogenicity. Renal cortical thickness is normal. No calculi or focal parenchymal lesions. No hydronephrosis. BLADDER: Unable to visualize. IMPRESSION: 1. Limited study. Unable to visualize the right kidney or the bladder. 2. Normal ultrasound of the left kidney..
== END 2017-07-19 15:40 | disposition short-term general hospital (02) | DRG 442 ==
LOC: ERH 11:33 → 2NB 07-12 16:51 → ERHI 07-12 16:51 → ENRESERV 07-12 17:35 → ENTRNSPT 07-12 18:42 → EDTRNSPTSTS 07-12 19:19 → EDTRNSPT 07-12 19:19 → 2NB 07-12 19:25 → CMPTRNSPT 07-12 19:37 → 2NB 07-18 13:08 → ENPENDDIS 07-19 14:45 → 2NB 07-19 15:40
PROVIDERS: Dermatology; Emergency Medicine; Student in an Organized Health Care Education/Training Program
PROC: 30233N1 Transfusion of Nonautologous Red Blood Cells into Peripheral Vein, Percutaneous Approach (ICD-10-PCS; principal; 2017-07-14)
DX: K76.7 Hepatorenal syndrome (principal); N18.4 Chronic kidney disease, stage 4 (severe); K72.90 Hepatic failure, unspecified without coma; N17.9 Acute kidney failure, unspecified; E87.1 Hypo-osmolality and hyponatremia; E87.5 Hyperkalemia; K76.6 Portal hypertension; D62 Acute posthemorrhagic anemia; K75.81 Nonalcoholic steatohepatitis (NASH); Z68.43 Body mass index [BMI] 50.0-59.9, adult; F32.9 Major depressive disorder, single episode, unspecified; F41.9 Anxiety disorder, unspecified; N95.0 Postmenopausal bleeding; F10.21 Alcohol dependence, in remission; I12.9 Hypertensive chronic kidney disease with stage 1 through stage 4 chronic kidney disease, or unspecified chronic kidney disease; E03.9 Hypothyroidism, unspecified; K64.9 Unspecified hemorrhoids; Z88.2 Allergy status to sulfonamides; Z91.040 Latex allergy status; E66.9 Obesity, unspecified; K58.9 Irritable bowel syndrome, unspecified; Z80.1 Family history of malignant neoplasm of trachea, bronchus and lung; Z80.42 Family history of malignant neoplasm of prostate; R00.1 Bradycardia, unspecified; K31.89 Other diseases of stomach and duodenum; K70.31 Alcoholic cirrhosis of liver with ascites
CPT/HCPCS: 2NBP; 2NBSP; 84133; 84300; 86160; 36415; 36592; 76775; 81001; 82436; 82570; 86920; 93005; 93010; 96372; 96374; 97116-GO; 97161-GP; 97530-GO; J0885-EC; J1756; J2354; P9016; P9047